=== PATIENT | female | born 1990 | race Caucasian/White ===

== ENCOUNTER → 2017-08-20 16:51 | Outpatient (CLI) | payer MEDICAID, SELFPAY ==
--- NOTE | 2017-08-20 17:01 | RAD_ITS ---
STUDY: X-RAY CHEST REASON FOR EXAM: Female, 27 years old. Pleurisy TECHNIQUE: Frontal and lateral views COMPARISON: April 26, 2013 FINDINGS: A 1 cm nodule in the left lower lung field likely a nipple shadow. The lungs are clear and expanded. There is no demonstrated pleural abnormality. Normal size heart. Normal mediastinum and moon. Normal visualized pulmonary arteries. Normal visualized aortic arch and descending thoracic aorta. Normal visualized thoracic spine. Normal visualized ribs, clavicles, and shoulders. There is no demonstrated abnormality of the visualized soft tissue structures of the upper abdomen. RAD/Chest PA and Lateral IMPRESSION: Normal x-ray examination of the chest. Electronically Signed: Mitchell Orosco DO at 23:05 EDT Tel [phone], Service support ,
== END ==
PROVIDERS: Family Provider Family Medicine; PCP Family Medicine; Visit Provider Family Medicine
DX: R09.1 Pleurisy (principal)
CPT/HCPCS: 71046

== ENCOUNTER → 2021-06-14 | Outpatient (CLI) | payer MEDICAID, SELFPAY ==
[2021-06-14 12:35] LABS: Erythrocyte Sedimentation Rate 14 mm/hr (0-30)
[2021-06-14 12:37] LABS: Absolute Lymphocyte Count 2.04 X10^3/uL (0.83-4.51); Basophil# 0.03 X10^3/uL; Basophil% 0.5 % (0-1); Eosinophil# 0.14 X10^3/uL; Eosinophils% 2.5 % (0-5); Hematocrit 36.7 % (37-47); Hemoglobin 12.4 g/dL (12.0-15.0); Lymphocyte # 2.04 X10^3/ul (0.83-4.51); Lymphocyte % 35.8 % (19-41); Mean Corp Hgb Conc 33.8 g/dL (32-36); Mean Corpuscular Hgb 32.1 pg (27.0-32.0); Mean Corpuscular Volume 95.1 fL (81-99); Mean Platelet Vol. 9.8 fl (6.2-12.0); Monocyte% 8.8 % (0-10); NRBC Flagged by Analyzer 0 % (0-5); Neutrophil # 2.97 X10^3/uL (2.7-7.7); Platelet Count 339 K/mm3 (150-450); RBC Distribution Width CV 11.7 % (11.6-14.6); Red Blood Count 3.86 M/mm3 (4.2-5.4); White Blood Count 5.7 K/mm3 (4.4-11.0)
== END | disposition home or self-care (01) ==
LOC: MFPLAB 09:51
PROVIDERS: PCP Family Medicine; Referring Provider Family Medicine; Visit Provider Family Medicine
DX: R22.1 Localized swelling, mass and lump, neck (principal)
CPT/HCPCS: 36415; 85025; 85652

== ENCOUNTER → 2022-09-15 | Outpatient (CLI) | payer MEDICAID, SELFPAY ==
[2022-09-15 12:40] LABS: Absolute Lymphocyte Count 1.31 X10^3/uL (0.83-4.51); Absolute Neutrophil Count 4.2 X10^3/uL (2.0-7.7); Basophil# 0.04 X10^3/uL; Basophil% 0.7 % (0-1); Eosinophil# 0.14 X10^3/uL; Eosinophils% 2.3 % (0-5); Hematocrit 39.7 % (37-47); Hemoglobin 13.1 g/dL (12.0-15.0); Lymphocyte # 1.31 X10^3/ul (0.83-4.51); Lymphocyte % 21.3 % (19-41); Mean Corpuscular Hgb 32.5 pg (27.0-32.0); Mean Corpuscular Volume 98.5 fL (81-99); Monocyte# 0.42 X10^3/uL; Monocyte% 6.8 % (0-10); NRBC Flagged by Analyzer 0 % (0-5); Neutrophil # 4.22 X10^3/uL (2.7-7.7); Neutrophil % 68.7 % (47-70); Platelet Count 260 K/mm3 (150-450); RBC Distribution Width CV 12.3 % (11.6-14.6); RBC Distribution Width SD 44.6 fl (35.1-43.9); Red Blood Count 4.03 M/mm3 (4.2-5.4); White Blood Count 6.1 K/mm3 (4.4-11.0)
[2022-09-15 13:15] LABS: ALB/GLOB Ratio 1.1 RATIO (0.9-2.4); AST(SGOT) 18 U/L (15-37); Alanine Aminotransfer ALT/SGPT 19 U/L (13-56); Albumin, Serum 3.9 g/dL (3.2-5.0); Alkaline Phosphatase 50 U/L (45-117); Anion Gap 4 (5-15); BUN 10 mg/dL (7-18); BUN/Creat Ratio 12.2 RATIO (10-20); Calcium,Total 8.7 mg/dL (8.5-10.1); Chloride 107 mmol/L (98-107); Creatinine, Serum 0.82 mg/dL (0.55-1.02); EST Glomerular Filtration Rate 85 mL/min (>60); Est Glom Filt Rate - Afr Amer 103 mL/min (>60); Globulin 3.6 g/dL (2.2-4.2); Glucose 86 mg/dL (74-106); Potassium 4.1 mmol/L (3.5-5.1); Protein, Total 7.5 g/dL (6.4-8.2); Sodium Level 140 mmol/L (136-145); Thyroid Stim Hormone (TSH) 0.97 uIU/mL (0.358-3.74)
== END | disposition home or self-care (01) ==
LOC: MFPLAB 09:49
PROVIDERS: PCP Family Medicine; Referring Provider Family Medicine; Visit Provider Family Medicine
DX: F32.A Depression, unspecified (principal)
CPT/HCPCS: 36415; 80053; 84443; 85025

== ENCOUNTER → 2022-11-21 | Outpatient (CLI) | payer MEDICAID, SELFPAY ==
[2022-11-21 10:53] LABS: Absolute Lymphocyte Count 1.32 X10^3/uL (0.83-4.51); Absolute Neutrophil Count 6.3 X10^3/uL (2.0-7.7); Basophil# 0.03 X10^3/uL; Basophil% 0.4 % (0-1); Eosinophil# 0.06 X10^3/uL; Eosinophils% 0.7 % (0-5); Hematocrit 36.8 % (37-47); Hemoglobin 12.3 g/dL (12.0-15.0); Lymphocyte # 1.32 X10^3/ul (0.83-4.51); Mean Corp Hgb Conc 33.4 g/dL (32-36); Mean Corpuscular Hgb 32.5 pg (27.0-32.0); Mean Corpuscular Volume 97.1 fL (81-99); Mean Platelet Vol. 10.3 fl (6.2-12.0); Monocyte# 0.55 X10^3/uL; Monocyte% 6.7 % (0-10); NRBC Flagged by Analyzer 0 % (0-5); Neutrophil # 6.25 X10^3/uL (2.7-7.7); Neutrophil % 75.8 % (47-70); Platelet Count 254 K/mm3 (150-450); RBC Distribution Width SD 42.6 fl (35.1-43.9); Red Blood Count 3.79 M/mm3 (4.2-5.4); White Blood Count 8.2 K/mm3 (4.4-11.0)
[2022-11-21 11:49] LABS: HIV - WCH Non-Reactive (Nonreactive); Hepatitis B Surface Antigen Non-Reactive (Nonreactive); Hepatitis C Antibody Non-Reactive (Nonreactive); Rubella IgG Equiv (Nonreactive); Syphilis Antibodies Non-reactive
[2022-11-22 06:08] LABS: V-Zoster IgG (Immunity) 949 index (Immune >165)
[2022-11-24 15:08] LABS: HPV APTIMA, High Risk Negative (Negative)
== END | disposition home or self-care (01) ==
LOC: WOBLAB 10:20
PROVIDERS: PCP Family Medicine; Visit Provider Obstetrics & Gynecology
DX: Z34.81 Encounter for supervision of other normal pregnancy, first trimester (principal)
CPT/HCPCS: 36415; 85025; 86703; 86762; 86780; 86787; 86803; 87086; 87340; 87624; 88175; G0145

== ENCOUNTER 2023-06-15 05:03 | Inpatient (IN) | payer MEDICAID, SELFPAY ==
--- NOTE | 2023-05-24 10:56 | PCM.HP.BLA ---
History and Physical Date of Admission: 06/15/23 HPI: The patient is a 32 year old female presenting for pre-operative visit. She is scheduled for and tubal steriilization for repeat c/s and sterilization on June 15 2023. Procedure discussed along with risks, benefits and complications. Other alternatives discussed for management. Consent form signed? Yes. ? ? PAST MEDICAL HISTORY PAST MEDICAL HISTORY Diagnosis Date ? Depression/anxiety ? ? Herpes simplex virus (HSV) infection ? ? Insulin controlled gestational diabetes mellitus (GDM) in third trimester 04/11/2023 ? ? PAST SURGICAL HISTORY PAST SURGICAL HISTORY Procedure Laterality Date ? SECTION HX ? 2017 ? LAPAROSCOPIC APPENDECTOMY ? 04/16/2015 ? NEXPLANON INSERTION ? ? ? removed ? ? ? CURRENT MEDICATIONS Current Outpatient Medications Medication Sig Dispense Refill ? blood sugar diagnostic test strip 1 Strip four times daily. Use as instructed 120 Strip 9 ? Lancets lancets 1 Each four times daily. Use as instructed 120 Each 9 ? famotidine (PEPCID) 20 mg tablet Take 1 tablet by mouth two times a day. 60 tablet 4 ? VIT [id number] ORAL Take by mouth. ? ? ? No current facility-administered medications for this visit. ? ? ALLERGIES: Patient has no known allergies. ? PERSONAL HISTORY: SOCIAL HISTORY Social History ? Tobacco Use ? Smoking status: Former ? ? Years: 5 ? ? Types: Cigarettes ? ? Quit date: 2015 ? ? Years since quittin.1 ? Smokeless tobacco: Never Vaping Use ? Vaping Use: Never used Substance Use Topics ? Alcohol use: Not Currently ? Drug use: Not Currently ? ? Types: Marijuana ? ? Comment: no use since October 2022 ? FAMILY HISTORY: FAMILY HISTORY FAMILY HISTORY Problem Relation Age of Onset ? other (gestational diabetes) Mother ? ? Thyroid Mother ? ? No Known Problems Father ? ? No Known Problems Sister ? ? No Known Problems Brother ? ? No Known Problems Brother ? ? Breast Cancer Maternal Grandmother ? ? Brain Cancer Maternal Grandmother ? ? Accidental Maternal Grandfather ? ? Heart Attack Paternal Grandmother ? ? Heart Attack Paternal Grandfather ? ? No Known Problems Son ? ? No Known Problems Daughter ? ? ? REVIEW OF SYMPTOMS: GENERAL: denies fevers or chills ENDOCRINOLOGY: has not been on steroids Cardiology : denies palpitations or chest pain Respiratory: denies SOB or cough Hematology: denies history of prolonged bleeding or easy bruising or VTE Allergy: Denies history of personal or family history of allergy to anesthesia ? PHYSICAL EXAMINATION: ? VITALS: Blood pressure 132/72, weight 168 lb (76.2 kg), last menstrual period 09/08/2022. ? GENERAL: The patient is well nourished, well hydrated in no acute distress. , The patient is oriented to time, place, and person. NECK: Supple. No lynphadenopathy, normal thyroid, no thyromegaly. LUNGS: Clear to auscultation bilaterally. no wheezes, rhonchi or rales HEART: Regular rate and rhythm, Normal heart sounds, and No murmurs or gallops abd- soft, nontender, gravid, appopriate for gestational age ? IMPRESSION: Estimated Date of Delivery: 06/19/23 ? PLAN: The risks/benefits/alternatives and personal involved for the planned delivery and tubal sterilization were reviewed with the patient. Her questions were answered to her satisfaction and she desires to proceed. Consent was signed. I reviewed with her postop instructions and expectations. ? ? I have reviewed and updated past medical and surgical history, medications and allergies Assessment & Plan Assessment/Plan (1) 39 weeks gestation of : (2) Supervision of other high risk pregnancies, third trimester: (3) Previous delivery affecting , antepartum: (4) Sterilization:
[2023-06-15] VITALS (21 sets, daily range): BP systolic 122–143; BP diastolic 78–97; PULSE 58–109; RESP 9–18; TEMP 36.1–36.8; O2SAT 97–100; BMI 27.5
--- NOTE | 2023-06-15 | FALS_PTH ---
PATHOLOGY RESULTS PATIENT: LUIS MCDANIEL LOC: [facility] U#:[id number] AGE/SX: 32/F ROOM: WP004 RE06/15/[address]: Dr. Sarah Briseno MD : 1990 BED: 1 DIS: 06/18/2023 SPEC #: [id number] RECD: 06/15/23 10:03 STATUS: REINALDO REThom #: [id number] BOZENA: 06/15/23 00:[address]: Sarah Briseno DEPT: SURGICAL PATHOLOGY RECD BY: Teddy Edwards ENTERED: 06/15/23 10:03 SP TYPE: FALL TUBES OTHR DR: Dr. Halina Troncoso MD Tissues: Fallopian tube Procedures: Surgery Specimen Level II HEADER OPERATION: Tubal ligation PRE-OP DIAGNOSIS: Sterilization TISSUE SUBMITTED: Fallopian tubes MICROSCOPIC DIAGNOSIS Bilateral fallopian tubes, salpingectomy: Bilateral fallopian tubes, no pathologic diagnosis. BARAK:juan 06/18/2023 MICROSCOPIC DESCRIPTION Slides are reviewed. GROSS DESCRIPTION Received in fixative is one container labeled with the patient's name and designated bilateral fallopian tubes, suture in right tube. The specimen consists of two fallopian tubes. The right fallopian tube measures 7.0 cm in length and 1.0 cm in diameter and the left fallopian tube measures 4.8 cm in length and 1.3 cm in diameter. Both fallopian tubes have normal fimbriated ends. No mass lesions are identified. Batch Mixer Operator sections are submitted in two cassettes as follows: 1 - right fallopian tube, 2??left fallopian tube. / AM:juan 06/15/2023 TC:4 CPT: 54708 x2
[2023-06-15 05:32] LABS: Absolute Lymphocyte Count 1.79 X10^3/uL (0.83-4.51); Absolute Neutrophil Count 7.4 X10^3/uL (2.0-7.7); Basophil# 0.03 X10^3/uL; Basophil% 0.3 % (0-1); Hematocrit 34.6 % (37-47); Hemoglobin 11.6 g/dL (12.0-15.0); Lymphocyte # 1.79 X10^3/ul (0.83-4.51); Mean Corp Hgb Conc 33.5 g/dL (32-36); Mean Corpuscular Volume 95.3 fL (81-99); Monocyte# 0.57 X10^3/uL; Monocyte% 5.7 % (0-10); NRBC Flagged by Analyzer 0 % (0-5); Neutrophil # 7.39 X10^3/uL (2.7-7.7); Neutrophil % 74.4 % (47-70); Platelet Count 228 K/mm3 (150-450); RBC Distribution Width CV 12.5 % (11.6-14.6); Red Blood Count 3.63 M/mm3 (4.2-5.4); White Blood Count 9.9 K/mm3 (4.4-11.0)
[2023-06-15] MEDS: Acetaminophen 500 MG Tablet 1000 MG PO ×3 (05:43→18:15)
[2023-06-15] MEDS: Lactated Ringers 1,000 ML 999 ML IV (05:44)
[2023-06-15 05:53] LABS: Bedside Glucose 149 mg/dL (74-106)
[2023-06-15] MEDS: Lactated Ringers 1,000 ML 150 ML IV (06:40)
[2023-06-15] MEDS: Sodium Citrate/Citric Acid 30 ML UDC PO (07:08)
[2023-06-15] MEDS: Cefazolin 2 GM in 0.9% Normal Saline (100mL Bag) 100 ML IV (07:20)
[2023-06-15 07:38] LABS: Amphetamine Urine VISTA NEGATIVE (<1000 ng/mL); Barbiturate Urine VISTA NEGATIVE (< 200 ng/mL); Benzodiazepine Urine VISTA NEGATIVE (< 200 ng/mL); Cocaine Urine VISTA NEGATIVE (< 300 ng/mL); Ecstacy Urine VISTA NEGATIVE (< 500 ng/mL); Methadone Urine VISTA NEGATIVE (< 300 ng/mL); PCP Urine VISTA NEGATIVE (< 25 ng/mL); THC Urine VISTA NEGATIVE (< 50 ng/mL); Vista UDS pH Range 6
--- NOTE | 2023-06-15 08:05 | EX.PCM.OBRPT ---
Assessment & Plan (1) Sterilization: (2) Previous delivery affecting , antepartum: (3) Supervision of other high risk pregnancies, third trimester: (4) 39 weeks gestation of : Maternal Data Information Final DEANNE: 06/19/23 Gestational age: 39 3/7 Details Operative Information Date of Procedure: 06/15/23 Pre-Operative Diagnosis: sterilization request, previous c/s Post-Operative Diagnosis: same Indications for : Repeat Elective Classification: Scheduled Procedure Type: bilateral salpingectomy (with bilateral salpingectomy) general sales manager #1: Seb Reyes Type of Anesthesia: Spinal Anesthesiologist: Aneudy Holliday Special Medications: duramorph Antibiotic Given: Ancef 2 grams IV x1 Drain: Gloria to straight drain Estimated Blood Loss: 800 Fluids Replaced: 800 Procedure Start Time: 07:44 Procedure Stop Time: 08:14 Time of Delivery: 07:47 Findings Description of Procedure: The patient was taken to the operating room. She was prepped and draped in the dorsal supine position with a leftward tilt. A Pfannenstiel skin incision was made approximately 2 cm above the symphysis pubis and carried through to underlying layer fascia with the scalpel. The fascia was incised incised in the midline and extended laterally with the Johnson scissors. The fascia was dissected off the rectus muscles with blunt and sharp dissection. The rectus muscles were in the midline and the peritoneum was entered bluntly. The peritoneal incision was stretched and the bladder blade was placed. The uterine incision was made in a low transverse fashion with the scalpel and extended superiorly and inferiorly with blunt dissection. The amniotic membranes were ruptured bluntly and clear amniotic fluid returned. The 's head was brought to the incision in the flexed position and delivered without difficulty. The remainder of the infant was delivered with gentle traction and fundal pressure in the standard fashion. The mouth and nares were bulb suctioned. The cord was clamped and cut as the infant was stimulated. Cord clamping was delayed. The was handed off to the waiting nursing staff. The placenta was delivered with fundal massage and gentle traction in the standard fashion. The uterus was exteriorized and cleared of all clots and debris. The cervix was dilated with a ring forcep. The uterine incision was closed with #1 Vicryl in a running locked fashion. 2 [id number] 0 Vicryl sutures were needed to the left of the midline to control bleeding from the sinus. The incision was examined and was found to be hemostatic. The left tube was followed out to the fimbriated end and grasped with Fontana clamps. The LigaSure device was used to clamp, seal and transect the antimesenteric portion of the tube over to the cornual insertion of the tube. The tube was then amputated with the LigaSure device. Excellent hemostasis of all the pedicles was noted and the same procedure was performed on the contralateral side. The uterus was placed back into the peritoneal cavity and hemostasis was again confirmed. The rectus muscles were examined and any bleeding was Bovie cauterized. The parietal peritoneum and rectus muscles were closed en bloc with an 0 Vicryl running suture. The rectus fascia was examined and any bleeding was Bovie cauterized and the rectus fascia was closed with 1 Vicryl suture in a running standard fashion. The subcutaneous tissue was examining and any bleeding was Bovie cauterized. The subcutaneous tissue was reapproximated with 3-0 Vicryl suture. The skin was closed in a subcuticular fashion by the CLINICAL TRIALS SYSTEMS ADMINISTRATOR with me present in the labor and delivery suite. I performed the remainder of the procedure with assistance. All sponge, lap, and needle counts were correct. The patient was taken to her room for recovery in a stable condition. Presentation: Positive for Vertex Amniotic Membrane Rupture Type: Artificial Amniotic Fluid Description: Clear Placental Delivery Description: Expressed Placenta Disposition: [facility] Specimen(s) Sent to Pathology: bilateral fallopian tubes Cord Vessel Description: 3 Vessels Cord Entanglement: None Infant A Gender: Male ([place]) (1 minute): 8 (5 minute): 9 Delayed Cord Clamping: Yes Complications Complications: none
[2023-06-15] MEDS: Oxytocin 15 Units/NS 250ml 15 UNITS/250 ML IV.SOLN 83 UNITS IV (08:45)
[2023-06-15 09:16] LABS: Pathology Specimen OB SEE PATHOLOGY REPORT
[2023-06-15] MEDS: Ketorolac 30 MG/ML Syringe IV ×3 (09:18→21:33)
[2023-06-15 09:29] LABS: Syphilis Antibodies Non-reactive
[2023-06-15 09:31] LABS: Bedside Glucose 84 mg/dL (74-106)
[2023-06-15] MEDS: Lactated Ringers 1,000 ML 100 ML IV (11:46)
[2023-06-15] MEDS: 0.9% Saline Lock 10 ML Syringe IV ×2 (16:06→21:33)
[2023-06-15] MEDS: SimETHICONE 80 MG Chewable Tablet PO (17:15)
[2023-06-16 00:27] VITALS: BP 125/83; PULSE 62; RESP 16; TEMP 36.7; O2SAT 99
[2023-06-16] MEDS: Acetaminophen 500 MG Tablet 1000 MG PO ×4 (00:30→18:41)
[2023-06-16 03:52] VITALS: BP 130/84; PULSE 80; RESP 16; TEMP 36.7; O2SAT 99
[2023-06-16] MEDS: Ketorolac 30 MG/ML Syringe IV (04:00)
[2023-06-16] MEDS: SimETHICONE 80 MG Chewable Tablet PO ×4 (04:00→20:10)
[2023-06-16] MEDS: 0.9% Saline Lock 10 ML Syringe IV (04:01)
[2023-06-16 05:13] LABS: Hematocrit 29.5 % (37-47); Hemoglobin 9.7 g/dL (12.0-15.0); Mean Corp Hgb Conc 32.9 g/dL (32-36); Mean Corpuscular Hgb 32.1 pg (27.0-32.0); Mean Corpuscular Volume 97.7 fL (81-99); Mean Platelet Vol. 10.8 fl (6.2-12.0); Platelet Count 172 K/mm3 (150-450); RBC Distribution Width SD 44.9 fl (35.1-43.9); Red Blood Count 3.02 M/mm3 (4.2-5.4); White Blood Count 11.4 K/mm3 (4.4-11.0)
[2023-06-16 05:24] LABS: Bedside Glucose 84 mg/dL (74-106)
[2023-06-16] MEDS: oxyCODONE 5 MG Tablet PO ×3 (08:11→20:10)
[2023-06-16 08:14] VITALS: BP 128/88; PULSE 74; RESP 14; TEMP 36.8; O2SAT 100
--- NOTE | 2023-06-16 08:46 | PCM.PN.OB ---
Subjective Subjective Doing well. Bladder function improving. Light lochia. Pain controlled. Breast feeding well. Objective Data Objective Data Vital Signs: Vital Signs Temp Pulse Resp BP Pulse Ox O2 Del Method 98.2 F 74 14 128/88 H 100 Room Air 06/16/23 08:14 06/16/23 08:14 06/16/23 08:14 06/16/23 08:14 06/16/23 08:14 06/16/23 08:14 Oxygen Delivery Method Room Air Weight: 77.383 kg Body Mass Index (BMI) 27.5 Intake & Output: Intake and Output for Last 24 Hours 06/14/23 06/15/23 06/16/23 23:59 23:59 23:59 Intake Total 1959.17 / 1959.17 Output Total 3150 / 3150 750 / 750 Balance -1190.83 / -1190.83 -750 / -750 Lab / Micro Data Attestation: I reviewed the patient's lab results. 06/16/23 05:05 Labs: Laboratory Results - last 24 hr 06/15/23 05:20: Syphilis Total Ab Non-reactive, Blood Type O POSITIVE, Antibody Screen NEGATIVE 06/15/23 08:54: POC Glucose 84 06/16/23 05:02: POC Glucose 84 06/16/23 05:05: WBC 11.4 H, RBC 3.02 L, Hgb 9.7 L, Hct 29.5 L, MCV 97.7, MCH 32.1 H, MCHC 32.9, RDW Std Deviation 44.9 H, RDW Coeff of Dusty 13.0, Plt Count 172, MPV 10.8 Physical Exam Const alert General Appearance: cooperative GI GI Narrative: soft, moderate distention, fundus firm, appropriately tender. Abdominal bandage clean dry and intact Assessment & Plan (1) Previous delivery affecting , antepartum: (2) Sterilization:
--- NOTE | 2023-06-16 09:08 | CASEMGMT ---
Social Work Labor and Delivery Unit Date/Time of Referral: 06/16/23, 9:15am Date/Time of Intervention: 06/16/23, 8:45am Reason for referral: History of anxiety and depression History obtained from: CARMELITA HATCH, medical record Parent/Guardian status: MOB guardian of this baby Household composition: ACRMELITA HATCH, 9 year old, 6 year old and now baby Harman. CARMELITA is biological father to the 6 year old and Harman, and is only father 9 year old knows, since she was one. Her biological father is not involved at all. Medical history: MAMIE--history of depression and anxiety, history of . Baby: Born 06/15/23, 7:50am Apgars 8 and 9 at 1 and 5 minutes. weight is 3.355kg Educational Status: Both MAMIE and CARMELITA completed high school, MAMIE also did some vocational school. Financial Status: No concerns. 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 MAMIE plans to return to work eventually, would like to ge a more steady job locally Infant supplies: They have all needed supplies including diapers, wipes, clothing, car seat, crib. MAMIE is breast feeding. Childcare/Caregivers: MOB and CARMELITA's mothers help. The older children are with MAMIE's mother at present, and CARMELITA's mother is watching the pets. Transportation: They have 2 vehicles Programs/Agencies involved: None Children's Services/Legal Issues: None Behavioral Health issues: Substance use: FOYonas, none. MAMIE, states did use marijuana in October, once she knew was did not use again. She plans to not use again. MAMIE denies any other substance use. Tox screen negative on MOB, no screens done on baby. Mental Health: FOYonas, none. MOB, history of anxiety and depression. She states was diagnosed as a teen, and just prior to her spoke w/Dr. Troncoso about it. Dr. Troncoso prescribed Zoloft, however shortly after it was prescribed MAMIE learned was . She stopped taking the Zoloft at that time. She states has been managing well while . ELENA spoke w/MAMIE about depression and anxiety, she states she may have had some PPD after her pregnancies that lasted a month or two. She states she did not go on medication or do counseling, and it eventually got better. MOB states she has never been in counseling. FOB did walk out of the room while SW speaking w/them, SW checked in w/MOB, she does confirm he is supportive, no concerns for homegoing. Family/Social Stressors: FOB states the economy, otherwise, no other concerns identified Support systems: Both MOB and FOB's mothers, FOB's family--states he has 5 brothers, he is the oldest. MOB states has one sister depression/anxiety/shaken baby/safe sleeping/Help Me Grow/[facility]/Mental Health resources and hotlines: SW gave information on all of these topics and reviewed w/MOB and FOB. SW pointed out to MOB information in particular on PPD and anxiety. SW suggested to MOB if she is having difficulty to reach back out to Dr. Troncoso regarding medication--or reach out to her OB as her OB would be able to prescribe medication that is safe to use while breast feeding. SW also encouraged her to seek out counseling if she is having any PPD or anxiety. MOB states understanding and seems open to SW suggestions. Assessment: SW spoke w/MOB and FOB in room. MOB open w/SW, answered all questions. MOB holding baby and appropriate in her care toward baby. FOB initially not fully participating in conversation, on phone. However as SW was in longer he became more engaged and spoke w/SW, answered questions. Plan: Baby to go home w/MOB and FOB at discharge, no further social service needs indicated at this time. LORRIE Collazo
[2023-06-16] MEDS: Ibuprofen 600 MG Tablet PO ×3 (10:59→21:27)
[2023-06-16] MEDS: Senna/Docusate Sodium 1 Tablet PO (11:10)
[2023-06-16 12:34] VITALS: BP 135/91; PULSE 77; RESP 16; TEMP 36.8; O2SAT 98
[2023-06-16 15:20] VITALS: BP 153/95; PULSE 80; RESP 14; TEMP 36.8; O2SAT 99
[2023-06-16 20:15] VITALS: BP 132/81; PULSE 78; RESP 16; TEMP 36.6; O2SAT 99
[2023-06-17] MEDS: oxyCODONE 5 MG Tablet PO ×5 (00:25→20:31)
[2023-06-17] MEDS: Acetaminophen 500 MG Tablet 1000 MG PO ×4 (00:30→19:15)
[2023-06-17 04:10] VITALS: BP 134/82; PULSE 66; RESP 16; TEMP 36.6; O2SAT 100
[2023-06-17] MEDS: Ibuprofen 600 MG Tablet PO ×4 (04:24→23:05)
[2023-06-17 08:26] VITALS: BP 125/75; RESP 78; TEMP 37.1; O2SAT 98
--- NOTE | 2023-06-17 09:47 | PCM.PN.OB ---
Subjective Subjective Feeling better. BP back to normal range. Moderate lochia, Pain improving. Baby under bili lights yesterday. Monitoring platelets today. Breast feeding. Objective Data Objective Data Vital Signs: Vital Signs Temp Pulse Resp BP Pulse Ox O2 Del Method 98.7 F 66 78 H 125/75 H 98 Room Air 06/17/23 08:26 06/17/23 04:10 06/17/23 08:26 06/17/23 08:26 06/17/23 08:26 06/17/23 08:26 Oxygen Delivery Method Room Air Weight: 77.383 kg Body Mass Index (BMI) 27.5 Intake & Output: Intake and Output for Last 24 Hours 06/15/23 06/16/23 06/17/23 23:59 23:59 23:59 Intake Total 1959.17 / 1959.17 Output Total 3150 / 3150 750 / 750 Balance -1190.83 / -1190.83 -750 / -750 Lab / Micro Data Attestation: I reviewed the patient's lab results. 06/16/23 05:05 Physical Exam Const alert General Appearance: cooperative GI GI Narrative: soft, moderate distention, fundus firm, appropriately tender. Abdominal bandage clean dry and intact Assessment & Plan (1) Previous delivery affecting , antepartum: (2) 39 weeks gestation of : (3) Transient hypertension of , :
[2023-06-17] MEDS: Senna/Docusate Sodium 1 Tablet PO (12:04)
[2023-06-17 20:32] VITALS: BP 133/84; PULSE 67; RESP 16; TEMP 36.5
[2023-06-18 01:38] VITALS: BP 129/79; PULSE 67; RESP 16; TEMP 36.7
[2023-06-18] MEDS: Acetaminophen 500 MG Tablet 1000 MG PO ×3 (01:38→13:38)
[2023-06-18] MEDS: oxyCODONE 5 MG Tablet PO ×3 (03:20→11:41)
[2023-06-18] MEDS: Ibuprofen 600 MG Tablet PO ×2 (05:18→10:34)
--- NOTE | 2023-06-18 07:15 | PCM.PN.OB ---
Subjective Subjective Doing well. Breast feeding is going well. Pain manageable but still feels she need oxy here and there. Objective Data Objective Data Vital Signs: Vital Signs Temp Pulse Resp BP Pulse Ox O2 Del Method 98.0 F 67 16 129/79 H 98 Room Air 06/18/23 01:38 06/18/23 01:38 06/18/23 01:38 06/18/23 01:38 06/17/23 08:26 06/18/23 01:38 Oxygen Delivery Method Room Air Weight: 77.383 kg Body Mass Index (BMI) 27.5 Intake & Output: Intake and Output for Last 24 Hours 06/16/23 06/17/23 06/18/23 23:59 23:59 23:59 Output Total 750 / 750 Balance -750 / -750 Lab / Micro Data 06/16/23 05:05 ROS Constitutional Constitutional: Denies fatigue, fever(s) or malaise Eyes Eyes: Denies change in vision ENT HEENT: Denies dizziness or headache(s) Cardiovascular Cardiovascular: Denies chest pain, dyspnea or lightheadedness Respiratory/Chest Respiratory/Chest: Denies cough or dyspnea Gastrointestinal Gastrointestinal: Denies change in bowel habits Genitourinary Genitourinary: Denies burning urination or genital lesions Integumentary Integumentary: Denies rash Neurologic Neurologic: Denies confusion, dizziness, headache(s), numbness or weakness Physical Exam Const alert General Appearance: cooperative GI GI Narrative: soft, moderate distention, fundus firm, appropriately tender. Abdominal bandage clean dry and intact Assessment & Plan (1) Status post : PLAN: d/c home (2) Transient hypertension of , :
--- NOTE | 2023-06-18 07:25 | DS.PCM_ITS ---
Providers Date of Admission: 06/15/23 Date of Discharge: 06/18/23 Primary Care Physician: Dr. Halina Troncoso MD Reason For Visit: REPEAT Diagnosis Discharge Diagnosis (1) Status post : Status: Acute Code(s): Z98.891 - History of uterine scar from previous surgery Plan: d/c home (2) Transient hypertension of , : Status: Acute Code(s): O13.5 - Gestational [-induced] hypertension without significant proteinuria, complicating the puerperium Medications at Discharge Home Medications ibuprofen 600 mg tablet 600 mg PO Q6H #30 tabs 06/18/23 oxycodone 5 mg tablet 5 mg PO Q6H 1 week #7 tabs 06/18/23 Hospital Course Operations section Procedures None Summary of Care Provided Minutes Spent on Discharge: 22 Hospital Course: Scheduled repeat . Uncomplicated delivery. Transient HTN first day post . Resolved with better pain management. with elevated bili requiring light therapy. platelet clumping necessitating further observation. OK for discharge Physical Exam Const alert General Appearance: cooperative GI GI Narrative: soft, moderate distention, fundus firm, appropriately tender. Abdominal bandage clean dry and intact Weight / BMI Weight Weight: 77.383 kg Body Mass Index (BMI) 27.5 ABG / Lab / Microbiology Data 06/16/23 05:05 D/C Instructions Discharge Diet: No restrictions May resume sexual activity in: 4-6 weeks Lifting Restrictions: 20 pounds Additional Activity Instructions: Nothing in the vagina for 4-6 weeks. You may return to work/school in 6 weeks. Call your doctor if your incision/area has: Continuous Slow Oozing, Sudden Increased Bleeding, Increased Pain/ Swelling, Increased Redness and Foul Smelling Discharge Call your doctor if you observe: Fever of 101 or Higher and Using more than 1 pad per hour (for 2 hours) Suture Line Care: Avoid Pulling/Pushing and Avoid Pinching/Bending Cleanse incision/area with: Keep Dressing Clean & Dry Please Follow Up With: Sarah Briseno MD When: Call to make an appointment for an incision check in 1-2 weeks -[phone]. You will need a post check in 6 weeks. Meaningful Use Info Meaningful Use Diagnoses (Choose all that apply): None applicable Discharge Plan Admission Admit Date/Time: 06/15/23 05:03 Primary Reason for Your Visit: scheduled Attending Provider: Sarah Briseno Primary Care Provider: Halina Troncoso Instructions Patient Instructions: Section Dc Discharge Orders/Prescriptions Prescriptions: New ibuprofen 600 mg Tablet 600 mg PO Q6H Qty: 30 1RF oxycodone 5 mg Tablet 5 mg PO Q6H 7 Days Qty: 7 0RF Discontinued valacyclovir [Valtrex] 1,000 MG tablet 1,000 mg PO BID Patient Comments: perineal lesions Referrals / Follow Up: Halina Troncoso MD [Primary Care Provider] - Karlie Baez MD [Med Staff - Active Staff] - Disposition Disposition (needs filled in before D/C Order can be placed): Home, Self Care
[2023-06-18 07:30] VITALS: BP 137/87; PULSE 73; RESP 16; TEMP 36.7; O2SAT 99
[2023-06-18] MEDS: Senna/Docusate Sodium 1 Tablet PO (10:34)
[2023-06-18 13:45] VITALS: BP 138/75; PULSE 65; RESP 16; TEMP 36.8; O2SAT 99
--- NOTE | 2023-06-28 09:17 | CASEMGMT ---
Labor and Delivery Wiring Inspector Meconium results returned for babyHarman (: 06/15/23) and results were positive for THC. Sw called [facility] and made report due to AIDEN Act. Ronald spoke to hotline screener, Cherie. No other issues or concerns at this time. Elis De La O, RISK MANAGEMENT INTERNSHIP, SALES PROMOTION DIRECTOR
== END 2023-06-18 14:15 | disposition home or self-care (01) | DRG 539 ==
PROVIDERS: Admitting Provider Obstetrics & Gynecology; PCP Family Medicine; Visit Provider Obstetrics & Gynecology
PROC: 10D00Z1 Extraction of Products of Conception, Low, Open Approach (ICD-10-PCS; CPT 59514; principal; 2023-06-15 07:00)
DX: O34.219 Maternal care for unspecified type scar from previous cesarean delivery (principal); O13.5 Gestational [pregnancy-induced] hypertension without significant proteinuria, complicating the puerperium; Z37.0 Single live birth; Z3A.39 39 weeks gestation of pregnancy; Z30.2 Encounter for sterilization; Z87.891 Personal history of nicotine dependence
CPT/HCPCS: 59025; 59050; 80307; 82962; 85025; 85027; 86780; 86850; 86900; 86901; 88302; 99221; J7120; A4216; G0378; J2405

== ENCOUNTER 2024-09-28 06:18 | Emergency (ER) | payer OTHER, MEDICAID, SELFPAY ==
[2024-09-28 06:20] VITALS: BP 148/75; PULSE 81; RESP 18; TEMP 36.8; O2SAT 100; BMI 26.9
--- NOTE | 2024-09-28 06:25 | EDS_ITS ---
HPI History of Present Illness Chief Complaint: Laceration Informant: patient Narrative Narrative: Healthy 34-year-old female was at work, she went to pick something up and accidentally stood up into a wall-mounted hook, and accidentally sustained a laceration on top of her head. She does not have any significant pain, loss of consciousness, headache, nausea vomiting, or focal neurologic deficits. Last tetanus unknown. PFSH PFS Medical History no medical history Home Medications ?Medication ?Instructions ?Recorded ?Last Taken ?Type NK 09/28/24 Unknown History Allergy/AdvReac Type Severity Reaction Status Date / Time No Known Allergies Allergy Verified 05/11/24 09:35 Surgical History History of section History of appendectomy Social History Smoking Status: Current every day smoker tobacco type: e-cigarettes ROS ROS ED Constitutional Constitutional ED: Denies fever(s) Eyes Eyes: Denies change in vision Gastrointestinal Gastrointestinal: Denies nausea or vomiting Musculoskeletal Musculoskeletal: Denies back pain or neck pain Integumentary Reports laceration Neurologic Neurologic: Denies headache(s), paresthesias or weakness EXAM Physical Exam Const Vital Signs: 09/28/24 06:20 Temperature 98.2 F Temperature Source Oral Pulse Rate 81 Respiratory Rate 18 Blood Pressure 148/75 H Blood Pressure Mean 99 Pulse Ox 100 Oxygen Delivery Method Room Air Positive well nourished and well developed General Appearance ED: well developed HEENT HEENT Narrative: 1.5 cm full-thickness laceration top of the scalp just to the right of midline. There is no crepitance, depression or significant hematoma or tenderness. No other injury to the head, full range of motion of the neck without difficulty or limitation. Eyes PERRL and EOMs intact bilaterally Neck full ROM General: Negative for tenderness Resp normal respiratory effort Neuro oriented x3, CN's II-XII intact bilaterally, moves all extremities, no focal motor deficits, no sensory deficits noted and gait normal [place] Coma Scale: document GCS findings Spontaneous Obeys Commands Oriented 15 Psych mental status grossly normal and thought process normal Skin Skin Narrative: No rashes. Laceration to the top of the head x 1, 1.5 cm see above. Clean appearing linear. PROC Procedures Lacerations scalp: Length: 1.5 cm Depth: Sub Q Shape: Linear Prep: Sterile Conditions and Chlorhexadine Laceration repair: Irrigated and Skin sutures (janene) Irrigated (ml): 60 Number of Sutures/[place]: 2 Discharge Plan Triage Chief Complaint: Laceration ED Provider: Anthony Montesinos Dx/Rx/DC Orders Clinical Impression: Laceration of scalp Instructions: ED Laceration Scalp Stitches or [place] Prescriptions: No Action NK Primary Care Provider: Halina Troncoso Referrals: [facility]] - 7 Days for suture removal Print Language: [place] Disposition Disposition: Home, Self Care
[2024-09-28] MEDS: Lidocaine 1% /Epi 1:100 (20ml) 20 ML Vial INFILT (06:26)
--- OUTSIDE RECORDS SUMMARY | 2024-09-28 06:46 | XMS RPT_ITS | CCD ---
Author Organization [facility] Inform ion Partnership [facility] Care Team Providers Care Furniture Salesperson Name Role Phone Hanna ARBOLEDA, Sanjay Garcia Unavailable [phone] CONGENI, GRACIA L Unavailable Unavailable CONGENI, GRACIA L Unavailable Unavailable JOLLIFF, HALINA Unavailable Unavailable PROVIDER, UNKNOWN Admitting Unavailable PROVIDER, UNKNOWN Attending Unavailable Unavailable Primary Care Provider UnavailPATIENCE Payne Attending Unavailable LALY CHEW Referring Unavailable LALY CHEW Referring Unavailable LALY CHEW Attending Unavailable JANNET CASTLE Referring Unavailable LALY CHEW Attending Unavailable LALY CHEW Attending Unavailable BETSY THOMAS Attending Unavailable BETSY THOMAS Referring Unavailable SIVA MORENO Attending Unavailable BETSY THOMAS Referring Unavailable PATIENCE VILLARREAL Attending Unavailable PATIENCE VILLARREAL Referring Unavailable CRYSTAL SARMIENTO Attending Unavailable SELF Referring Unavailable BETSY THOMAS Attending Unavailable JEEVAN, LALY Freddy Attending Unavailable SELF Referring Unavailable RACHEL FENG Attending Unavailable PATIENCE VILLARREAL Referring Unavailable PATIENCE VILLARREAL Attending Unavailable LALY CHEW Attending Unavailable JANNET CASTLE Attending Unavailable COLLETTE ALEXANDER Attending Unavailable Mike Preston Attending Unavailable Jolliff, Halina S Referring Unavailable Jolliff, Halina S Primary Care Unavailable Nash Menon NP Attending Unavailable Jolliff, Halina S Referring Unavailable Jolliff, Halina S Primary Care Unavailable Laly Chew Attending Unavailable Jeevan Laly Admitting Unavailable Jolliff, Halina S Primary Care Unavailable Allergies Allergy Classification Reported Allergen(s) Allergy Type Date of Onset Reaction(s) Facility (3 sources) Penicillins Propensity to adverse reactions 7 Upset Stomach [facility] Medications Current Medications Medication Drug Class(es) Dates Sig (Normalized) Sig (Original) hydrocortisone acetate 25 mg rectal suppository (3 sources) Corticosteroid Start: 06-01-2023 End: 06-15-2023 hydrocortisone (ANUSOL-HC) 25 mg suppository 1 Suppository by RECTAL route two times a day for 14 days. 28 Each 0 06/01/2023 06/15/2023 Active Comment on above: 1 Suppository by REC ANDERS route two times a day for 14 days. oxyCODONE hydrochloride 5 mg oral tablet (7 sources) Opioid Agonist Start: 07-24-2023 End: 07-29-2023 take 1 tablet by mouth every eight hours as needed for pain oxyCODONE IR (ROXICODONE) 5 mg immediate release tablet Indications: Acute postop pain NEC Take 1 tablet by mouth every 8 hours as needed for pain for up to 5 days. 10 tablet 0 07/24/2023 07/29/2023 Active Start: 06-25-2023 End: 06-30-2023 take 1 tablet by mouth every eight hours as needed for pain oxyCODONE IR (ROXICODONE) 5 mg immediate release tablet Indications: Postoperative pain Take 1 tablet by mouth every 8 hours as needed for pain for up to 5 days. 8 tablet 0 06/25/2023 06/30/2023 Active Start: 2023 take 5 mg by mouth e very six hours Oxycodone Active 5 MG PO EVERY 6 HOURS 7 7 2023 Start: 01-09-2017 End: 06-15-2023 take 5 mg by mouth every six hours as needed Oxycodone Discontinued 5 MG PO EVERY 6 HOURS NEEDED January 09, 2017 4:42pm June 15, 2023 5:51am Comment on above: Take 1 tablet by iva th every 8 hours as needed for pain for up to 5 days. Completed/Discontinued Medications Medication Drug Class(es) Dates Sig (Normalized) Sig (Original) acetaminophen 500 mg oral tablet (4 sources) Start: 01-09-2017 End: 06-15-2023 take 1000 mg by mouth every eight hours Acetaminophen Discontinued 1000 MG PO Q8H January 08, 2017 11:00pm June 15, 2023 5:51am acetaminophen 325 mg / oxyCODONE hydrochloride 5 mg oral tablet (1 source) Opioid Agonist Start: 12-01-2016 take 1 tablet by mouth every four to six hours as needed for pain OXYCODONE-ACETAMIN OPHEN 5-325 MG TABS 1 tab PO every 4-6 hours as needed for pain OXYCODONE-ACETAMIN OPHEN [id number] Sanjay Ferreira MD acyclovir 400 mg oral tablet (7 sources) Herpesvirus Nucleoside Analog DNA Polymerase Inhibitor, Herpes Simplex Virus Nucleoside Analog DNA Polymerase Inhibitor, Herpes Zoster Virus Nucleoside Analog DNA Polymerase Inhibitor Start: 05-30-2023 End: 07-24-2023 take 1 tablet by mouth twice daily acyclovir (ZOVIRAX) 400 mg tablet Take 1 tablet by mouth two times a day. 60 tablet 1 05/30/2023 07/24/2023 Discontinued Comment on above: Take 1 tablet by iva th two times a day. docusate sodium 50 mg / sennosides, custodial 8.6 mg oral tablet (4 sources) Start: 01-09-2017 End: 06-15-2023 take 1 tablet by mouth once daily as needed Sennosides-Docusat e Sodium (Stool Softener-Stimulant Laxat) 1 TABLET tablet Discontinued 1 TABLET PO DAILY NEEDED January 08, 2017 11:00pm June 15, 2023 5:51am famotidine 20 mg oral tablet (11 sources) Histamine-2 Receptor Antagonist Start: 03-27-2023 End: 07-24-2023 take 1 tablet by mouth twice daily famotidine (PEPCID) 20 mg tablet Take 1 tablet by mouth two times a day. 60 tablet 4 03/27/2023 07/24/2023 Discontinued Comment on above: Take 1 tablet by iva th two times a day. hydrocortisone acetate 5 mg/ml / lidocaine hydrochloride 30 mg/ml rectal cream (2 sources) Antiarrhythmic, Corticosteroid, Amide Local Anesthetic Start: 05-30-2023 End: 06-29-2023 Lidocaine-Hydrocor tisone Ac 3-0.5 % crea by RECTAL route two times a day as needed. 7 g 0 05/30/2023 06/01/2023 Discontinued Comment on above: by RECTAL route two times a day as needed. ibuprofen 600 mg oral tablet (5 sources) Nonsteroidal Anti-inflammatory Drug Start: 2023 ibuprofen (MOTRIN) 600 mg tablet Take 600 mg by mouth. 0 2023 Active Comment on above: Take 600 mg by mouth . lidocaine 0.05 mg/mg topical ointment (7 sources) Antiarrhythmic, Amide Local Anesthetic Start: 06-01-2023 End: 07-24-2023 lidocaine (XYLOCAINE) 5 % ointment Apply to affected area four times a day as needed. use a small amount to affected area qid prn pain 30 g 1 06/01/2023 07/24/2023 Discontinued Start: 06-01-2023 End: 06-01-2023 lidocaine (XYLOCAINE) 5 % oi ntment Apply to affected area three times a day. use a small amount to affected area qid prn pain 30 g 1 06/01/2023 06/01/2023 Discontinued Comment on above: Apply to affected ar ea four times a day as needed. use a small amount to affected area qid prn pain Apply to affected ar ea three times a day. use a small amount to affected area qid prn pain naproxen 250 mg oral tablet (4 sources) Nonsteroidal Anti-inflammatory Drug Start: 7 End: take 250-500 mg by mouth every eight hours as needed Naproxen Discontinued 250 - 500 MG PO EVERY 8 HOURS NEEDED January 08, 2017 11:00pm June 15, 2023 5:51am VIT 07-MANR-TAYZE-DHA ORAL (15 sources) VIT 81-PBMR-SCUAD-DHA ORAL Take by mouth. 0 Active Comment on above: Take by mouth. sertraline 25 mg oral tablet (5 sources) Serotonin Reuptake Inhibitor Start: 7 End: 4 take 1 tablet by mouth once daily Sertraline (Zoloft) 25 MG tablet Discontinued 25 MG PO DAILY January 08, 2017 11:00pm June 15, 2023 5:51am Start: 12-01-2016 ZOLOFT 25 MG T ABS once daily SERTRALINE HCL [id number] Sanjay Ferreira MD valACYclovir 1000 mg oral tablet (4 sources) Herpesvirus Nucleoside Analog DNA Polymerase Inhibitor, Herpes Simplex Virus Nucleoside Analog DNA Polymerase Inhibitor, Herpes Zoster Virus Nucleoside Analog DNA Polymerase Inhibitor Start: 01-09-2017 End: 2023 take 1 tablet by mouth twice daily Valacyclovir (Valtrex) 1,000 MG tablet Discontinued 1000 MG PO TWICE A DAY January 08, 2017 11:00pm 2023 7:19am Problems Active Problems Problem Classification Problem Date Documented Date Episodic/Chronic Adjustment disorders (4 sources) Adjustment disorder; Translations: [Adjustment disorder, unspecified] Onset: 07-19-2023 07-19-2023 Chronic Appendicitis and other appendiceal conditions (4 sources) Acute appendicitis; Translations: [Unspecified acute appendicitis] 04-16-2015 Episodic Contraceptive and procreative management (12 sources) Sterilization requested; Translations: [Encounter for sterilization] Onset: 01-18-2023 01-18-2023 Episodic Diabetes or abnormal glucose tolerance complicating ; childbirth; or the puerperium (20 sources) Abnormal glucose level; Translations: [Abnormal glucose complicating ] Onset: 03-29-2023 03-29-2023 Episodic Hemorrhoids (3 sources) Thrombosed external hemorrhoids; Translations: [Hemorrhoids] Onset: 12-01-2016 12-04-2016 Episodic Hypertension complicating ; childbirth and the puerperium (2 sources) Transient hypertension of with complication ; Translations: [Gestational [-induced] hypertension without significant proteinuria, complicating the puerperium] 06-17-2023 Episodic Immunizations and screening for infectious disease (1 source) Vaccination needed; Translations: [Encounter for immunization] 03-27-2023 Episodic Other complications of (2 sources) Uterine size for dates discrepancy; Translations: [Uterine size-date discrepancy, third trimester] 05-24-2023 Episodic Other complications of (4 sources) High risk ; Translations: [Supervision of high risk , unspecified, third trimester] 05-24-2023 Episodic Other complications of (1 source) Supervision of other high risk pregnancies, third trimester; Translations: [Supervision of other high-risk ] 2023 Episodic Other complications of (1 source) Uterine size-date discrepancy, third trimester; Translations: [Uterine size-date discrepancy, third trimester] Onset: 05-24-2023 Episodic Other lower respiratory disease (1 source) Other specified respiratory disorders; Translations: [Other specified respiratory disorders] Onset: 05-11-2024 Episodic Other nervous system disorders (2 sources) Postoperative pain ; Translations: [Other acute postprocedural pain] 06-25-2023 Episodic Other screening for suspected conditions (not mental disorders or infectious disease) (1 source) Patient encounter status; Translations: [Encounter for other specified screening] 02-02-2023 Episodic Other upper respiratory infections (1 source) Acute upper respiratory infection, unspecified; Translations: [Acute upper respiratory infection, unspecified] Onset: 05-11-2024 Episodic Residual codes; unclassified (1 source) Gestation period, 20 weeks; Translations: [20 weeks gestation of ] 02-02-2023 Episodic Residual codes; unclassified (1 source) Gestation period, 24 weeks; Translations: [24 weeks gestation of ] 02-27-2023 Episodic Residual codes; unclassified (1 source) Gestation period, 28 weeks; Translations: [28 weeks gestation of ] 03-27-2023 Episodic Residual codes; unclassified (2 sources) Gestation period, 36 weeks; Translations: [36 weeks gestation of ] 05-24-2023 Episodic Residual codes; unclassified (1 source) Gestation period, 37 weeks; Translations: [37 weeks gestation of ] 05-30-2023 Episodic Residual codes; unclassified (1 source) Gestation period, 38 weeks; Translations: [38 weeks gestation of ] 06-08-2023 Episodic Residual codes; unclassified (1 source) Gestation period, 39 weeks; Translations: [39 weeks gestation of ] 05-24-2023 Episodic Residual codes; unclassified (1 source) 39 weeks gestation of ; Translations: [ state, incidental] 2023 Episodic Residual codes; unclassified (1 source) History of uterine scar from previous surgery; Translations: [Other postprocedural status] 2023 Episodic Past or Other Problems Problem Classification Problem Date Documented Da te Episodic/Chronic Other infections; including parasitic (12 sources) History of sexually transmitted disease; Translations: [Personal history of other infectious and parasitic diseases] Onset: 01-16-2023 01-16-2023 Episodic Other and delivery including normal (20 sources) ; Translations: [Encounter for supervision of normal , unspecified, unspecified trimester] Onset: 01-16-2023 01-16-2023 Episodic Previous (3 sources) Uterine scar from previous surgery affecting ; Translations: [Maternal care for low transverse scar from previous delivery] Onset: 01-16-2023 05-24-2023 Episodic Residual codes; unclassified (12 sources) FH: Muscular dystrophy; Translations: [Family history of epilepsy and other diseases of the nervous system] Onset: 01-16-2023 01-16-2023 Episodic Residual codes; unclassified (1 source) 24 weeks gestation of ; Translations: [24 weeks gestation of ] Onset: 03-27-2023 Episodic Screening and history of mental health and substance abuse codes (20 sources) H/O: depression; Translations: [Personal history of other mental and behavioral disorders] Onset: 01-16-2023 01-16-2023 Episodic Unclassified (4 sources) No history of clinical finding in subject; Translations: [No significant past medical history] 04-16-2015 Results Test Name Value Interpretation Reference Range Facility Urgent Care Visit Reporton 0 05-11-2024 Urgent Care Visit Report [facility] [address], [address] [place] [id number] OFFICE VISIT Date of Service: 05/11/24 MR#: [id number] Acct: [id number] Name: IVY LINCOLN Rep #: [id number] : 1990 Provider: JEFF vogel Age/Sex: 33/F Location: [facility] Status: Signed Intake Vital Signs 09/17/23 17:22 05/11/24 09:34 Height 5 ft 6 in Weight: 149 lb 4 oz BMI 24.0 BP 116/76 122/64 H Blood Pressure Location Lt brachial Rt brachial Position Sitting Sitting Respiration 16 15 Pulse 120 H 98 Pulse Source NIBP NIBP Temp 101.7 F H 98.0 F Temp Source Temporal Oral Pulse Oximetry (%) 98 98 Oxygen Delivery Method room air room air Intake Visit Reasons: SORE THROAT, CONGESTION Chief Complaint: ST, chills, sweats, fever, drainage, SOB 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 concern for PNA but aware we have no radiology today, would still like exam. [facility] Surgical History (Updated 09/17/23 @ 17:24 by Shea Villarreal) History of section History of appendectomy Social History Smoking Status: Never smoker HPI HPI Chief Complaint: ST, chills, sweats, fever, drainage, SOB Details: IVY LINCOLN, is a 33 F who presents to the office today for concerns regarding sore throat, chills, sweats, fever, drainage, and shortness of breath. This has been ongoing for 4 days and worsening. She expresses concerns regarding possible pneumonia. She underwent flu and COVID testing prior to examination that was negative. She has taken OTC medication without much relieve. 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 ROS Const Constitutional: Positive for chills, fatigue, fever(s), headache(s) and abnormal sleep pattern (more than typical); No body ache or change in appetite Eyes Eyes: Positive for discharge (watery); No blurry vision, change in vision, double vision, irritation, vision loss, dry eyes, bulging eyes, floaters, visual disturbances, eye pain, Light sensitivity, spots in vision, tunnel vision or other ENT ENT: Positive for nasal congestion, sinus pressure, sinus pain, nasal discharge (clear, green), post nasal drip, headache(s), hoarseness and sore throat; No abnormal hearing, ear or mastoid pain, ear discharge, ear pressure, hearing loss, tinnitus, dizziness/vertigo, balance problems, nosebleed/epistaxis, nose pain, facial pain, dental pain, dif ficulty swallowing, bad breath, lip swelling, mouth lesions, mouth pain, neck pain, tongue swelling or throat swelling Resp Respiratory: Positive for cough Cough: Yes productive, change in phlegm color (Green), shortness of breath sob: SOB with activity and wheezing; No chest congestion, hemoptysis, pain on inspiration, pain with cough or stridor Cardio Cardiology: No chest pain at rest, chest pain with exertion, shortness of breath, dyspnea on exertion or lightheadedness Gastro GI: Positive for abdominal pain (upper abdomen) and constipation (Last bowel movement- 3 or more days); No change in bowel habits, diarrhea, difficulty swallowing, nausea/dyspepsia or vomiting Genitourinary-Female: No burning urination or urinary frequency Musc Musculoskeletal: No joint pain or neck pain Skin Skin: No rash Neuro Neurology: Positive for headache(s); No abnormal hearing or visual disturbances Psych Psychiatric: Positive for abnormal sleep pattern (more than typical) and No change in appetite Endo Endocrine: Positive for fatigue Aller/Imm Allergy/Immunologic: Positive for wheezing; No lip swelling, throat swelling or tongue swelling Exam Const General: cooperative, healthy appearing, comfortable and no acute distress Orientation: alert, awake and oriented x3 HENMT Head: normal to inspection and normocephalic Ears: hearing grossly normal bilaterally, external ears normal and TM's normal bilaterally Nose: external nose normal, nares normal and no nasal discharge Face and sinus: normal facial exam and sinuses nontender Mouth: oral mucosae normal, lip normal, tongue normal, oropharynx normal and moist mucous membranes Throat: posterior oropharynx normal, tonsils normal, uvula midline and no postnasal drainage Eyes General: appearance normal, both eyes and all related structures Neck Neck: normal visual inspection and no lymphadenopathy Carotids: normal carotid upst (more content not included)... Normal [facility] Urgent Care Visit Reporton 0 09-17-2023 Urgent Care Visit Report [facility] [address], [address] [place] [address] OFFICE VISIT Date of Service: 09/17/23 MR#: [id number] Acct: [id number] Name: IVY LINCOLN Rep #: [id number] : 1990 Provider: RAMONE Blanco Age/Sex: 33/F Location: [facility] Status: Signed Intake Vital Signs 06/15/23 05:37 09/17/23 17:22 Height 5 ft 6 in 5 ft 6 in Weight: 149 lb 4 oz BMI 24.0 BP 116/76 Blood Pressure Location Lt brachial Position Sitting Respiration 16 Pulse 120 H Pulse Source NIBP Temp 101.7 F H Temp Source Temporal Pulse Oximetry (%) 98 Oxygen Delivery Method room air Intake Visit Reasons: ST/CHILLS/WHITE SPOTS IN THROAT Chief Complaint: ST, chills, BA, ROMERO, fever Aegis Console Operator Track Required: No Is patient in pain?: Yes Allergies No Known Allergies Allergy (Verified 09/17/23 17:22) Is last menstrual period known: No Post menopausal: No Patient : No Nurse's Note: ST, chills, BA, ROMERO, fever x 24 hours. + voice changes, very painful to swallow PFSH Surgical History (Updated 09/17/23 @ 17:24 by Shea Villarreal) History of section History of appendectomy Social History Smoking Status: Never smoker HPI HPI Chief Complaint: ST, chills, BA, ROMERO, fever Details: IVY LINCOLN, is a 33 F who presents to the office today for [facility] for approximately 2-day history of progressively worsening sore throat, chills, fever (? tmax), myalgias, headache with swollen tender cervical lymph nodes in front of neck, no cough. Painful swallowing appreciated though no difficulty swallowing/drooling. No rash. No complaints of chest pressure/shortness of breath/dyspnea on exertion. No close contacts with similar complaints. ???No ikce-chf-fyiqmlh products taken to assist. No other associated symptoms and no other alleviating/aggravating factors. ROS Const Constitutional: No other (As above) Exam Const General: cooperative, healthy appearing and no acute distress Orientation: alert, awake and oriented x3 HENMT Head: normal to inspection Ears: hearing grossly normal bilaterally, external ears normal, TM's normal bilaterally and EAC's normal Nose: external nose normal, nares normal, septum normal and no nasal discharge Face and sinus: normal facial exam, sinuses nontender and face symmetric Mouth: oral mucosae normal, lip normal, tongue normal and oropharynx normal Throat: posterior oropharynx normal, uvula midline, abnormal tonsil bilaterally erythema w/ exudates and +1 hypertrophy, and no postnasal drainage Eyes General: appearance normal, both eyes and all related structures Neck Neck: normal visual inspection, full ROM, no meningeal signs, supple and lymphadenopathy (Bilateral anterior cervical lymph node swelling/tender to palpation) Neck mass: No Thyroid: thyroid normal Chest Chest palpation inspection: normal inspection of the chest Resp Effort Inspection: normal respiratory effort and able to speak in complete sentences Auscultation: Bilateral: Clear to Auscultation Cardio Palpation: normal PMI Rate: regular rate Rhythm: regular rhythm Heart Sounds: S1 normal, S2 normal, no gallops, no murmurs and no rubs Pulses: radial pulses present Skin General: no rashes or lesions noted Neuro General: patient alert, patient awake and patient oriented x3 Cognition: normal cognition Speech: speech normal Psych Appearance: grossly normal Mental Status: mental status grossly normal Mood: congruent mood Affect: normal affect Speech and Movement: speech and movement normal Attitude: cooperative Diagnoses Acute streptococcal pharyngitis J02.0 Assessment and Plan Assessment and Plan (1) Acute streptococcal pharyngitis: Status: Acute Plan: - by 07/18 [facility] Amoxicillin as prescribed today. Supportive measures as instructed today. Follow-up with PCP in 3 to 5 days should symptoms not improve, ED sooner should symptoms worsen or any other concerns develop. Patient states acknowledging understanding all the above Coding Level of Care Code Off vis,new,level 3 Diagnoses No active medical problems Assessment and Plan Assessment and Plan (1) No active medical problems: Medications: New amoxicillin 500 mg PO TID 30 tabs 0RF Discontinued oxycodone Discontinued Reason: Order Completed 5 mg PO Q6H 1 week 7 tabs 0RF Z98.891 - History of uterine scar from previous surgery 09/17/23 1731 Date Mike Love Signature: Date (if applicable) CC: Normal [facility] ETHYL GLUCURONIDE UR SCRon 0 07-20-2023 Ethyl glucuronide Screen Ql (U) Negative Normal Negative [facility] Comment on above: Order Comment: Speci men Type: BLOOD SPECIMEN Ordering Facility: [facility] Address: [address] [place] [id number] Result Comment: Scre en cutoff concentration: 500 ng/mL ethyl glucuronide. Immunoassay screen only. Cross reactivity with other substances can occur with immunoassay screening. Detection of any drug(s) in this panel is presumptive only. These tests are for medical purposes only and should not be used for compliance monitoring, legal, or forensic use. This test was developed and its performance characteristics determined by [facility] [place] ([facility] It has not been cleared or approved by the FDA. [facility] is regulated under CLIA as qualified to perform high-complexity testing. This test is used for clinical purposes. It should not be regarded as investigational or for research. Performed By: #### G [id number] #### [facility] CLIA [id number] [address] OF [place] PAIN PANEL, UR QUANTon 07-19 8-Znxzetjkxf-5,5-Dime thyl-3,3-Diphenylpyrr olidine (EDDP) Confirm (U) [Mass/Vol] <6 Normal <6 [facility] Comment on above: Order Comment: Speci men Type: URINE SPECIMENOrdering Facility: [facility] Address: [address] [place] [address] Result Comment: EDDP is a metabolite of methadone. Performed By: #### L [id number] ####[facility] [id number] [address] [place] 6-Monoacetylmorphine (6-CELESTE) (U) [Mass/Vol] <5 Normal <5 [facility] Comment on above: Order Comment: Speci men Type: URINE SPECIMENOrdering Facility: [facility] Address: [address] [place] [address] Result Comment: 6-MA M (6-monoacetylmorphine, also known as 6-acetylmorphine) is a unique metabolite of heroin. Presence of 6-CELESTE indicates use of heroin. 6-CELESTE is further metabolized to morphine and absence of 6-CELESTE does not rule out the use of heroin. Performed By: #### L [id number] ####[facility] LABIA [id number] [address] [place] [id number] [address] [place] Amphetamine Confirm (U) [Mass/Vol] <5 Normal <5 [facility] Comment on above: Order Comment: Speci men Type: URINE SPECIMENOrdering Facility: [facility] Address: [address] [place] [address] Performed By: #### L [id number] ####[facility] LABIA [id number] [place] [address] [place] Benzoylecgonine Confirm (U) [Mass/Vol] <24 Normal <24 [facility] Comment on above: Order Comment: Speci men Type: URINE SPECIMENOrdering Facility: [facility] Address: [address] [place] [address] Result Comment: Celestine oylecgonine is a metabolite of cocaine. Performed By: #### L [id number] ####[facility] [id number] [place] [address] [place] Buprenorphine (U) [Mass/Vol] <20 Normal <20 [facility] Comment on above: Order Comment: Speci men Type: URINE SPECIMENOrdering Facility: [facility] Address: [address] [place] [address] Performed By: #### L [id number] ####[facility] [id number] [place] [address] [place] Cannabinoids Confirm (U) [Mass/Vol] <16 Normal <16 [facility] Comment on above: Order Comment: Speci men Type: URINE SPECIMENOrdering Facility: [facility] Address: [address] [place] [address] Result Comment: Tetr ahydrocannabinol carboxylic acid (THCA) is a metabolite of hmjyo-0-kwcbruihnzantstftxkr which is the main active component of marijuana. Performed By: #### L [id number] ####[facility] [id number] [place] [address] [place] Codeine Confirm (U) [Mass/Vol] <11 Normal <11 [facility] Comment on above: Order Comment: Speci men Type: URINE SPECIMENOrdering Facility: [facility] Address: [address] [place] [address] Performed By: #### L [id number] ####[facility] LABIA [id number] [place] [address] [place] Dihydrocodeine Confirm (U) [Mass/Vol] <5 Normal <5 [facility] Comment on above: Order Comment: Speci men Type: URINE SPECIMENOrdering Facility: [facility] Address: [address] [place] [address] Performed By: #### L [id number] ####[facility] LABIA [id number] [place] [address] [place] fentaNYL Confirm (U) [Mass/Vol] <6 Normal <6 [facility] Comment on above: Order Comment: Speci men Type: URINE SPECIMENOrdering Facility: [facility] Address: [address] [place] [address] Performed By: #### L [id number] ####[facility] LABIA [id number] [place] [address] [place] HYDROcodone Confirm (U) [Mass/Vol] <8 Normal <8 [facility] Comment on above: Order Comment: Speci men Type: URINE SPECIMENOrdering Facility: [facility] Address: [address] [place] [address] Result Comment: Hydr ocodone is a metabolite of dihydrocodeine. Performed By: #### L [id number] ####[facility] LABIA [id number] [place] [address] [place] HYDROmorphone Confirm (U) [Mass/Vol] <5 Normal <5 [facility] Comment on above: Order Comment: Speci men Type: URINE SPECIMENOrdering Facility: [facility] Address: [address] [place] [address] Result Comment: Hydr omorphone is a metabolite of hydrocodone. Performed By: #### L [id number] ####[facility] [id number] [address] [place] Methadone Confirm (U) [Mass/Vol] <16 Normal <16 [facility] Comment on above: Order Comment: Speci men Type: URINE SPECIMENOrdering Facility: [facility] Address: [address] [place] [address] Performed By: #### L [id number] ####[facility] [id number] [place] [address] [place] Methamphetamine Confirm (U) [Mass/Vol] <8 Normal <8 [facility] Comment on above: Order Comment: Speci men Type: URINE SPECIMENOrdering Facility: [facility] Address: [address] [place] [address] Performed By: #### L [id number] ####[facility] [id number] [address] [place] Morphine Confirm (U) [Mass/Vol] <10 Normal <10 [facility] Comment on above: Order Comment: Speci men Type: URINE SPECIMENOrdering Facility: [facility] Address: [address] [place] [address] Result Comment: Morp mary is a metabolite of codeine and heroin. Performed By: #### L [id number] ####[facility] [id number] [address] [place] Norbuprenorphine (U) [Mass/Vol] <20 Normal <20 [facility] Comment on above: Order Comment: Speci men Type: URINE SPECIMENOrdering Facility: [facility] Address: [address] [place] [address] Result Comment: Norb uprenorphine is the primary active metabolite of buprenorphine. Performed By: #### L [id number] ####[facility] [id number] [place] [address] [place] Norfentanyl Confirm (U) [Mass/Vol] <6 Normal <6 [facility] Comment on above: Order Comment: Speci men Type: URINE SPECIMENOrdering Facility: [facility] Address: [address] [place] [address] Result Comment: Norf entanyl is a metabolite of fentanyl. Performed By: #### L [id number] ####[facility] LABIA [id number] [address] [place] Nortramadol (U) [Mass/Vol] <20 Normal <20 [facility] Comment on above: Order Comment: Speci men Type: URINE SPECIMENOrdering Facility: [facility] Address: [address] [place] [address] Result Comment: Desm ethyltramadol is a metabolite of tramadol. Performed By: #### L [id number] ####[facility] [id number] [place] [address] [place] NOTE,UR PAIN BALES Normal [facility] Comment on above: Order Comment: Speci men Type: URINE SPECIMENOrdering Facility: [facility] Address: [address] [place] [address] Result Comment: This test is for medical use only. This test was developed and its performance characteristics determined by [facility]'s [facility] Pathology [facility] Laboratory [facility] [place] (-[facility]). It has not been cleared or approved by the FDA. -[facility] is regulated under CLIA as qualified to perform high-complexity testing. This test is used for clinical purposes. It should not be regarded as investigational or for research. Performed By: #### L [id number] ####[facility] LABIA [id number] [place] [address] [place] oxyCODONE Confirm (U) [Mass/Vol] <10 Normal <10 [facility] Comment on above: Order Comment: Speci men Type: URINE SPECIMENOrdering Facility: [facility] Address: [address] [place] [address] Performed By: #### L [id number] ####[facility] [id number] [place] [address] [place] oxyMORphone Confirm (U) [Mass/Vol] 30 ng/mL High <5 [facility] Comment on above: Order Comment: Speci men Type: URINE SPECIMENOrdering Facility: [facility] Address: [address] [place] [address] Result Comment: Oxym orphone may arise from oxymorphone containing drugs or by metabolism of oxycodone. Performed By: #### L [id number] ####[facility] [id number] [place] [address] [place] traMADol Confirm (U) [Mass/Vol] <25 Normal <25 [facility] Comment on above: Order Comment: Speci men Type: URINE SPECIMENOrdering Facility: [facility] Address: [address] [place] [address] Performed By: #### L [id number] ####[facility] [id number] [place] [address] [place] PHOSPHATIDYLETHANOL (PETH)on 07-20-2023 EER PETH See Note Normal [facility] Comment on above: Order Comment: Speci men Type: BLOOD SPECIMEN Ordering Facility: [facility] Address: [address] [place] [address] Result Comment: Auth orized individuals can access the [facility] Enhanced Report using the following link: [email or web address] Performed By: #### G TGST1 #### [facility] [id number] [address] [place] [address] [place] PETH 16:0/18.2 (PLPETH) <10 Normal [facility] Comment on above: Order Comment: Speci men Type: BLOOD SPECIMEN Ordering Facility: [facility] Address: [address] [place] [address] Result Comment: Refe rence ranges are not well established. Performed By: #### G TGST1 #### [facility] [id number] [address] [place] [address] [place] PETH 16:0/18:1 (POPETH) <10 Normal [facility] Comment on above: Order Comment: Speci men Type: BLOOD SPECIMEN Ordering Facility: [facility] Address: [address] [place] [address] Result Comment: PEth 16:0/18:1 (POPEth) Less than 10 ng/mL............Not detected Less than 20 ng/mL............Abstinence or light alcohol consumption 20 - 200 ng/mL................Moderate alcohol consumption Greater than 200 ng/mL........Heavy alcohol consumption or chronic alcohol use (Reference: Donovan Casiano and Supriya Urias 2018 J. Forensic Sci) Performed By: #### G TGST1 #### [facility] [id number] [address] [place] [address] [place] PETH INTERPRETATION See Comment Normal [facility] Comment on above: Order Comment: Speci men Type: BLOOD SPECIMEN Ordering Facility: [facility] Address: [address] [place] [address] Result Comment: Phos phatidylethanol (PEth) is a group of phospholipids formed in the presence of ethanol, phospholipase D and phosphatidylcholine. PEth is known to be a direct alcohol biomarker. The predominant PEth homologues are PEth 16:0/18:1 (POPEth) and PEth 16:0/18:2 (PLPEth), which account for 37-46% and 26-28% of the total PEth homologues, respectively. PEth is incorporated into the phospholipid membrane of red blood cells and has a general half-life of 4-10 days and a window of detection of 2-4 weeks. However, the window of detection is longer in individuals who chronically or excessively consume alcohol. The limit of quantification is 10 ng/mL. Serial monitoring of PEth may be helpful in monitoring alcohol abstinence over time. PEth results should be interpreted in the context of the patient's clinical and behavioral history. Patients with advanced liver disease may have falsely elevated PEth concentrations (Magaly MENENDEZ et al 2018, Alcoholism Clinical & Experimental Research). This test was developed and its performance characteristics determined by [facility] It has not been cleared or approved by the U.S. Food and Drug Administration. This test was performed in a CLIA-certified laboratory and is intended for clinical purposes. Performed By: [facility] [address] [place] [address] Community [employer] Director: Murali Buenrostro MD, PhD CLIA Number: [id number] Performed By: #### G TGST1 #### [facility] CLIA [id number] [address] [place] [address] [place] SPECIMEN VALIDITY, URINEon 0 07-20-2023 CHROMATE,URINE <10 Normal <50 [facility] Comment on above: Order Comment: Speci men Type: BLOOD SPECIMEN Ordering Facility: [facility] Address: [address] [place] [address] Performed By: #### G TGST1 #### [facility] CLIA [id number] [address] [place] [address] [place] CREATININE,URINE 11.2 mg/dL Low 20.0-300.0 [facility] Comment on above: Order Comment: Speci men Type: BLOOD SPECIMEN Ordering Facility: [facility] Address: [address] [place] [address] Performed By: #### G TGST1 #### [facility] CLIA [id number] [address] [place] [address] [place] NITRITES,URINE <50 Normal <500 [facility] Comment on above: Order Comment: Speci men Type: BLOOD SPECIMEN Ordering Facility: [facility] Address: [address] [place] [address] Performed By: #### G TGST1 #### [facility] CLIA [id number] [address] [place] [address] [place] OXIDANTS,URINE <38 Normal <200 [facility] Comment on above: Order Comment: Speci men Type: BLOOD SPECIMEN [facility]ing Facility: [facility] Address: [address] [place] [address] Performed By: #### G TGST1 #### [facility] CLIA [id number] [address] [place] [address] [place] pH (U) 6.4 [pH] Normal 4.5-8.0 [facility] Comment on above: Order Comment: Speci men Type: BLOOD SPECIMEN [facility]ing [facility]: [facility] Address: [address] [place] [address] Performed By: #### G TGST1 #### [facility] [id number] [address] [place] [address] [place] SPEC GRAVITY,UR 1.003 Normal 1.003-1.035 [facility] Comment on above: Order Comment: Speci men Type: BLOOD SPECIMEN [facility]ing [facility]: [facility] Address: [address] [place] [address] Performed By: #### G TGST1 #### [facility] [id number] [address] [place] [address] SPECIMEN VALIDITY QUALITY Specimen quality results within acceptable limits Normal [facility] Comment on above: Order Comment: Speci men Type: BLOOD SPECIMEN [facility]ing [facility]: [facility] Address: [address] [place] [address] Performed By: #### G TGST1 #### [facility] [id number] [address] [place] [address] TOX SCREEN ROUT URon 024 Amphetamines Confirm (U) [Mass/Vol] Negative Normal Negative [facility] Comment on above: Order Comment: Speci men Type: URINE SPECIMENOrdering Facility: [facility] Address: [address] [place] [address] Result Comment: Cuto ff threshold at 1000 ng/mL. Performed By: #### U TOX2 ####[facility] LABCLIA [id number] [place] [address] [place] BARBITURATES, URINE Negative Normal Negative [facility] Comment on above: Order Comment: Speci men Type: URINE SPECIMENOrdering Facility: [facility] Address: [address] [place] [address] Result Comment: Cuto ff threshold at 200 ng/mL. Performed By: #### U TOX2 ####[facility] LABCLIA [id number] [place] [address] [place] BENZODIAZEPINES, UR Negative Normal Negative [facility] Comment on above: Order Comment: Speci men Type: URINE SPECIMENOrdering Facility: [facility] Address: [address] [place] [address] Result Comment: Cuto ff threshold at 200 ng/mL. Performed By: #### U TOX2 ####[facility] LABCLIA [id number] [place] [address] [place] Cannabinoids Screen Ql (U) Negative Normal Negative [facility] Comment on above: Order Comment: Speci men Type: URINE SPECIMENOrdering Facility: [facility] Address: [address] [place] [address] Result Comment: Cuto ff threshold at 50 ng/mL. Performed By: #### U TOX2 ####[facility] LABCLIA [id number] [place] [address] [place] Cocaine Ql (U) Negative Normal Negative [facility] Comment on above: Order Comment: Speci men Type: URINE SPECIMENOrdering Facility: [facility] Address: [address] [place] [address] Result Comment: Cuto ff threshold at 300 ng/mL. Performed By: #### U TOX2 ####[facility] LABCLIA [id number] [place] [address] [place] Ethanol (U) [Mass/Vol] <11 Normal <11 [facility] Comment on above: Order Comment: Speci men Type: URINE SPECIMENOrdering Facility: [facility] Address: [address] [place] [address] Performed By: #### U TOX2 ####[facility] LABIA [id number] [place] [address] [place] Opiates Screen Ql (U) Negative Normal Negative [facility] Comment on above: Order Comment: Speci men Type: URINE SPECIMENOrdering Facility: [facility] Address: [address] [place] [address] Result Comment: Cuto ff threshold at 300 ng/mL. Performed By: #### U TOX2 ####[facility] [id number] [place] [address] [place] oxyCODONE cutoff Screen (U) [Mass/Vol] Negative Normal Negative [facility] Comment on above: Order Comment: Speci men Type: URINE SPECIMENOrdering Facility: [facility] Address: [address] [place] [address] Result Comment: Cuto ff threshold at 100 ng/mL. Performed By: #### U TOX2 ####[facility] LABIA [id number] [place] [address] [place] Phencyclidine Ql (U) Negative Normal Negative [facility] Comment on above: Order Comment: Speci men Type: URINE SPECIMENOrdering Facility: [facility] Address: [address] [place] [address] Result Comment: Cuto ff threshold at 25 ng/mL. Performed By: #### U TOX2 ####[facility] LABIA [id number] [place] [address] [place] Basophil percentageOrdered B y: Laly Chew on 06-16-2023 Hemoglobin (Bld) [Mass/Vol] 9.7 g/dL 12.0-15.0 [facility] WBC (Bld) [#/Vol] 11.4 10*3/uL 4.4-11.0 [facility] Bedside Glucoseon 06-16-2023 FINGERSTICK GLU 84 mg/dL Normal 74-106 [facility] Comment on above: Result Comment: PREM SANTILLAN OF PATIENT CARE PER NURSING PROTOCOL Performed By: #### Yonas BURNHAM, L100.0100 #### [facility] [address] [place], [address] CBC-Complete Blood Cnt No Di ffon 06-16-2023 Erythrocyte distribution width (RBC) [Ratio] 13.0 % Normal 11.6-14.6 [facility] Comment on above: Order Comment: S Performed By: #### Yonas BURNHAM, L100.0100 #### [facility] [address] [place], [address] Hematocrit (Bld) [Volume fraction] 29.5 % Low 37-47 [facility] Comment on above: Order Comment: S Performed By: #### Yonas BURNHAM, L100.0100 #### [facility] [address] [place], [address] Hemoglobin (Bld) [Mass/Vol] 9.7 g/dL Low 12.0-15.0 [facility] Comment on above: Order Comment: S Performed By: #### Yonas BURNHAM, L100.0100 #### [facility] [address] [place], [address] MCH (RBC) [Entitic mass] 32.1 pg High 27.0-32.0 [facility] Comment on above: Order Comment: S Performed By: #### Yonas BURNHAM, L100.0100 #### [facility] [address] [place], [address] MCHC (RBC) [Mass/Vol] 32.9 g/dL Normal 32-[address] [facility] Comment on above: Order Comment: S Performed By: #### Yonas BURNHAM, L100.0100 #### [facility] [address] [place], [address] MCV (RBC) [Entitic vol] 97.7 fL Normal 81-99 [facility] Comment on above: Order Comment: S Performed By: #### Yonas BURNHAM, L100.0100 #### [facility] [address] [place], [address] Platelet mean volume (Bld) [Entitic vol] 10.8 fL Normal 6.2-12.0 [facility] Comment on above: Order Comment: S Performed By: #### Yonas BURNHAM, L100.0100 #### [facility] [address] [place], [address] Platelets (Bld) [#/Vol] 172 10*3/uL Normal 150-450 [facility] Comment on above: Order Comment: S Performed By: #### Yonas BURNHAM, L100.0100 #### [facility] [address] [place], [address] RBC (Bld) [#/Vol] 3.02 10*6/uL Low 4.2-5.4 [facility] Comment on above: Order Comment: S Performed By: #### Yonas BURNHAM, L100.0100 #### [facility] [address] [place], [address] RDW SD 44.9 fl High 35.1-43.9 [facility] Comment on above: Order Comment: S Performed By: #### Yonas BURNHAM, L100.0100 #### [facility] [address] [place], [address] WBC (Bld) [#/Vol] 11.4 10*3/uL High 4.4-11.0 [facility] Comment on above: Order Comment: S Performed By: #### B TS, L100.0100 #### [facility] [address] [place], [address] Determination of erythrocyte mean corpuscular volume (MCV)Ordered By: Laly Chew on 06-16-2023 MCV (RBC) [Entitic vol] 97.7 fL 81-99 [facility] Erythrocyte distribution wid th ratioOrdered By: Laly Chew on 06-16-2023 Erythrocyte distribution width (RBC) [Ratio] 13.0 % 11.6-14.6 [facility] Erythrocyte distribution wid th standard deviationOrdered By: Laly Chew on 06-16-2023 Erythrocyte distribution width (RBC) [Entitic vol] 44.9 fL 35.1-43.9 [facility] Hematocrit Auto (Bld) [Volum e fraction]Ordered By: Laly Chew on 06-16-2023 Hematocrit (Bld) [Volume fraction] 29.5 % 37-47 [facility] - Hematology and Cell countsOrdered By: Laly Chew on 06-16-2023 MCH (RBC) [Entitic mass] 32.1 pg 27.0-32.0 [facility] MCHC (RBC) [Mass/Vol] 32.9 g/dL 32-[address] [facility] Platelet mean volume (Bld) [Entitic vol] 10.8 fL 6.2-12.0 [facility] Platelets (Bld) [#/Vol] 172 10*3/uL 150-450 [facility] RBC Auto (Bld) [#/Vol]Ordere d By: Laly Chew on 06-16-2023 RBC (Bld) [#/Vol] 3.02 10*6/uL 4.2-5.4 [facility] Thin prep Papanicolaou smear with manual screeningOrdered By: Laly Chew on 06-16-2023 Thin prep Papanicolaou smear with manual screening 84 mg/dL 74-106 [facility] Comment on above: MANAGEMENT OF PATIEN T CARE PER NURSING PROTOCOL Absolute lymphocyte countOrd ered By: Laly Chew on 06-15-2023 Lymphocytes Auto (Unsp spec) [#/Vol] 1.79 10*3/uL 0.83-4.51 [facility] Automated lymphocyte count a s percentage of total leukocytesOrdered By: Laly Chew on 06-15-2023 Lymphocytes/100 WBC Auto (Unsp spec) 18.0 % 19-41 [facility] Basophil percentageOrdered B y: Laly Chew on 06-15-2023 Basophils/100 WBC (Bld) 0.3 % 0-1 [facility] Eosinophils/100 WBC (Bld) 1.0 % 0-5 [facility] Monocytes/100 WBC (Bld) 5.7 % 0-10 [facility] Neutrophils (Bld) [#/Vol] 7.4 10*3/uL 2.0-7.7 [facility] Neutrophils/100 WBC (Bld) 74.4 % 47-70 [facility] Bedside Glucoseon 06-15-2023 FINGERSTICK GLU 84 mg/dL Normal 74-106 [facility] Comment on above: Result Comment: PREM GEMENT OF PATIENT CARE PER NURSING PROTOCOL Performed By: #### L 501.080 #### [facility] [address] [place], [address] FINGERSTICK GLU 149 mg/dL High 74-106 [facility] Comment on above: Result Comment: PREM GEMENT OF PATIENT CARE PER NURSING PROTOCOL Performed By: #### L 501.080 #### [facility] [address] [place], [address] CBC W/Diff, Automatedon - Absolute Lymph 1.79 X10 3/uL Normal 0.83-4.51 [facility] Comment on above: Performed By: #### Yonas TS, L100.0100 #### [facility] [address] [place], [address] Absolute Neut 7.4 X10 3/uL Normal 2.0-7.7 [facility] Comment on above: Performed By: #### Yonas BURNHAM, L100.0100 #### [facility] [address] [place], [address] Basophils/100 WBC (Bld) 0.3 % Normal 0-1 [facility] Comment on above: Performed By: #### Yonas BURNHAM, L100.0100 #### [facility] [address] [place], [address] Eosinophils/100 WBC (Bld) 1.0 % Normal 0-5 [facility] Comment on above: Performed By: #### Yonas BURNHAM, L100.0100 #### [facility] [address] [place], [address] Erythrocyte distribution width (RBC) [Ratio] 12.5 % Normal 11.6-14.6 [facility] Comment on above: Performed By: #### Yonas BURNHAM, L100.0100 #### [facility] [address] [place], [address] Hematocrit (Bld) [Volume fraction] 34.6 % Low 37-47 [facility] Comment on above: Performed By: #### Yonas BURNHAM, L100.0100 #### [facility] [address] [place], [address] Hemoglobin (Bld) [Mass/Vol] 11.6 g/dL Low 12.0-15.0 [facility] Comment on above: Performed By: #### Yonas BURNHAM, L100.0100 #### [facility] [address] [place], [address] IG% 0.600 Normal 0.0-0.9 [facility] Comment on above: Result Comment: IG% - Immature Granulocytes (promyelocytes, myelocytes and metamyelocytes) > 1% indicates that a LEFT SHIFT is Present. Performed By: #### Yonas BURNHAM, L100.0100 #### [facility] [address] [place], [address] Lymphocytes/100 WBC (Bld) 18.0 % Low 19-41 [facility] Comment on above: Performed By: #### Yonas BURNHAM, L100.0100 #### [facility] [address] [place], [address] MCH (RBC) [Entitic mass] 32.0 pg Normal 27.0-32.0 [facility] Comment on above: Performed By: #### Yonas BURNHAM, L100.0100 #### [facility] [address] [place], [address] MCHC (RBC) [Mass/Vol] 33.5 g/dL Normal 32-[address] [facility] Comment on above: Performed By: #### Yonas BURNHAM, L100.0100 #### [facility] [address] [place], [address] MCV (RBC) [Entitic vol] 95.3 fL Normal 81-99 [facility] Comment on above: Performed By: #### Yonas BURNHAM, L100.0100 #### [facility] [address] [place], [address] Monocytes/100 WBC (Bld) 5.7 % Normal 0-10 [facility] Comment on above: Performed By: #### Yonas BURNHAM, L100.0100 #### [facility] [address] [place], [address] Neutrophils/100 WBC (Bld) 74.4 % High 47-70 [facility] Comment on above: Performed By: #### Yonas BURNHAM, L100.0100 #### [facility] [address] [place], [address] Nucleated RBC (Bld) [#/Vol] 0 10*3/uL Normal 0-5 [facility] Comment on above: Performed By: #### Yonas BURNHAM, L100.0100 #### [facility] [address] [place], [address] Platelet mean volume (Bld) [Entitic vol] 11.0 fL Normal 6.2-12.0 [facility] Comment on above: Performed By: #### Yonas BURNHAM, L100.0100 #### [facility] [address] [place], [address] Platelets (Bld) [#/Vol] 228 10*3/uL Normal 150-450 [facility] Comment on above: Performed By: #### Yonas BURNHAM, L100.0100 #### [facility] [address] [place], [address] RBC (Bld) [#/Vol] 3.63 10*6/uL Low 4.2-5.4 [facility] Comment on above: Performed By: #### Yonas BURNHAM, L100.0100 #### [facility] [address] [place], [address] RDW SD 43.0 fl Normal 35.1-43.9 [facility] Comment on above: Performed By: #### Yonas BURNHAM, L100.0100 #### [facility] [address] [place], [address] WBC (Bld) [#/Vol] 9.9 10*3/uL Normal 4.4-11.0 [facility] Comment on above: Performed By: #### Yonas BURNHAM, L100.0100 #### [facility] [address] [place], [address] Immature granulocytes/100 WB C Auto (Bld)Ordered By: Laly Chew on 06-15-2023 Immature granulocytes/100 WBC (Bld) 0.600 % 0.0-0.9 [facility] Comment on above: IG% - Immature Granu locytes (promyelocytes, myelocytes and metamyelocytes) > 1% indicates that a LEFT SHIFT is Present. L509.8000on 06-15-2023 Syphilis Abs Non-Reactive Normal [facility] Comment on above: Performed By: #### Yonas BURNHAM, L100.0100 #### [facility] [address] [place], [address] Laboratory - Drug toxicology Ordered By: Laly Chew on 06-15-2023 Amphetamines Ql (U) Negative <1000 ng/mL [facility] Benzodiazepines Ql (U) Negative < 200 ng/mL [facility] Cannabinoids Screen Ql (U) Negative < 50 ng/mL [facility] Cocaine Ql (U) Negative < 300 ng/mL [facility] Opiates Ql (U) Negative < 300 ng/mL [facility] Laboratory - Hematology and Cell countsOrdered By: Laly Chew on 06-15-2023 Nucleated RBC/100 WBC (Bld) [Ratio] 0 % 0-5 [facility] No Panel InformationOrdered By: Laly Chew on 06-15-2023 MDMA (Ecstasy) Screen Negative < 500 ng/mL [facility] Urine Barbiturates Screen Negative < 200 ng/mL [facility] Urine Drug Screen Comment [facility] Comment on above: CONFIRMATORY TESTING FOR ALL POSITIVE URINE DRUG SCREENRESULTS WILL ONLY BE SENT OUT UPON PHYSICIAN ORDER. VISTA Urine Drug Screen methods provide only preliminaryanalytical test results. A more specific alternate chemicalmethod must be used in order to obtain a confirmedanalytical result. Gas chromatography/mass spectrometery(GC/MS) is the preferred confirmatory method. Clinicalconsideration and professional judgement should be appliedto any drug of abuse test result, particularly whenpreliminary positive results are used. URINE TCA TESTING MUST BE ORDERED SEPARATELY. USE TESTMNEMONIC: [facility] Urine Methadone Screen Negative < 300 ng/mL [facility] Operative Reporton 4 Operative Report [facility] Medical Records Department [address] [place] [address] Operative Report 06/15/23 0805 MR#: [id number] Acct: [id number] Name: IVY LINCOLN Rep #: [id number] : 1990 32 From: Laly Chew MD PCP: Dr. Halina Troncoso MD Status:ADM IN Location: [id number] Assessment Plan (1) Sterilization: (2) Previous delivery affecting , antepartum: (3) Supervision of other high risk pregnancies, third trimester: (4) 39 weeks gestation of : Maternal Data Information Final DEANNE: 06/19/23 Gestational age: 39 3/7 Details Operative Information Date of Procedure: 06/15/23 Pre-Operative Diagnosis: sterilization request, previous c/s Post-Operative Diagnosis: same Indications for : Repeat Elective Classification: Scheduled Procedure Type: bilateral salpingectomy (with bilateral salpingectomy) electromechanic #1: Seb Reyes Type of Anesthesia: Spinal Anesthesiologist: Aneudy Holliday Special Medications: duramorph Antibiotic Given: Ancef 2 grams IV x1 Drain: Gloria to straight drain Estimated Blood Loss: 800 Fluids Replaced: 800 Procedure Start Time: 07:44 Procedure Stop Time: 08:14 Time of Delivery: 07:47 Findings Description of Procedure: The patient was taken to the operating room. She was prepped and draped in the dorsal supine position with a leftward tilt. A Pfannenstiel skin incision was made approximately 2 cm above the symphysis pubis and carried through to underlying layer fascia with the scalpel. The fascia was incised incised in the midline and extended laterally with the Johnson scissors. The fascia was dissected off the rectus muscles with blunt and sharp dissection. The rectus muscles were in the midline and the peritoneum was entered bluntly. The peritoneal incision was stretched and the bladder blade was placed. The uterine incision was made in a low transverse fashion with the scalpel and extended superiorly and inferiorly with blunt dissection. The amniotic membranes were ruptured bluntly and clear amniotic fluid returned. The infant's head was brought to the incision in the flexed position and delivered without difficulty. The remainder of the was delivered with gentle traction and fundal pressure in the standard fashion. The mouth and nares were bulb suctioned. The cord was clamped and cut as the was stimulated. Cord clamping was delayed. The was handed off to the waiting nursing staff. The placenta was delivered with fundal massage and gentle traction in the standard fashion. The uterus was exteriorized and cleared of all clots and debris. The cervix was dilated with a ring forcep. The uterine incision was closed with #1 Vicryl in a running locked fashion. 2 [id number] 0 Vicryl sutures were needed to the left of the midline to control bleeding from the sinus. The incision was examined and was found to be hemostatic. The left tube was followed out to the fimbriated end and grasped with Faisal clamps. The LigaSure device was used to clamp, seal and transect the antimesenteric portion of the tube over to the cornual insertion of the tube. The tube was then amputated with the LigaSure device. Excellent hemostasis of all the pedicles was noted and the same procedure was performed on the contralateral side. The uterus was placed back into the peritoneal cavity and hemostasis was again confirmed. The rectus muscles were examined and any bleeding was Bovie cauterized. The parietal peritoneum and rectus muscles were closed en bloc with an 0 Vicryl running suture. The rectus fascia was examined and any bleeding was Bovie cauterized and the rectus fascia was closed with 1 Vicryl suture in a running standard fashion. The subcutaneous tissue was examining and any bleeding was Bovie cauterized. The subcutaneous tissue was reapproximated with 3-0 Vicryl suture. The skin was closed in a subcuticular fashion by the ELECTRON BEAM WELDER SETTER with me present in the labor and delivery suite. I performed the remainder of the procedure with assistance. All sponge, lap, and needle counts were correct. The patient was taken to her room for recovery in a stable condition. Presentation: Positive for Vertex Amniotic Membrane Rupture Type: Artificial Amniotic Fluid Description: Clear Placental Delivery Description: Expressed Placenta Disposition: [facility] Specimen(s) Sent to Pathology: bilateral fallopian tubes Cord Vessel Description: 3 Vessels Cord Entanglement: None A Gender: Male ([place]) (1 minute): 8 (5 minute): 9 Delayed Cord Clamping: Yes Complications Complications: none 06/15/23 0812 Cosigner Signature (if applicable): CC: Dr. Halina Troncoso MD; Dr. Laly Chew MD Signed Normal [facility] Pathology Specimen OBon 0 PATH. Spec OB SEE PATHOLOGY REPORT Normal [facility] Comment on above: Order Comment: S Result Comment: Spec imen submitted to Anatomical Pathology Department for testing. Performed By: #### B TS, L100.0100 #### [facility] [address] [place], [address] Serum Treponema species anti body detectionOrdered By: Laly Chew on 06-15-2023 Treponema sp Ab Ql (S) Non-Reactive [facility] Surgery Specimen Level IIon 06-15-2023 Surgery Specimen Level II Patient Age/Sex Location Account Attending Physician IVY LINCOLN 32/F [id number] Dr. Laly Chew MD Specimen: [id number] Received: 06/15/23 Status: REINALDO Glaser Num: [id number] Spec Type: FALL TUBES Subm Dr: Dr. Laly Chew MD HEADER OPERATION: Tubal ligation PRE-OP DIAGNOSIS: Sterilization TISSUE SUBMITTED: Fallopian tubes MICROSCOPIC DIAGNOSIS Bilateral fallopian tubes, salpingectomy: Bilateral fallopian tubes, no pathologic diagnosis. SJ:juan 2023 MICROSCOPIC DESCRIPTION Slides are reviewed. GROSS DESCRIPTION Received in fixative is one container labeled with the patient's name and designated bilateral fallopian tubes, suture in right tube. The specimen consists of two fallopian tubes. The right fallopian tube measures 7.0 cm in length and 1.0 cm in diameter and the left fallopian tube measures 4.8 cm in length and 1.3 cm in diameter. Both fallopian tubes have normal fimbriated ends. No mass lesions are identified. Water Softener Servicer sections are submitted in two cassettes as follows: 1 - right fallopian tube, 2?left fallopian tube. / AM:juan 06/15/2023 TC:4 CPT: 30220 x2 Patient Age/Sex Location Account Attending Physician IVY LINCOLN 32/F [id number] Dr. Laly Chew MD Signed (signature on file) Dr. Ian Bradford MD 06/18/23 1120 Normal [facility] Comment on above: Performed By: #### P SUII #### [facility] [address] [place], [place], [address] Type AND Screenon 06-15-2023 ABO and Rh group Nom (Bld) Blood group O Rh(D) positive Normal [facility] Comment on above: Order Comment: S Performed By: #### B TS, L100.0100 #### [facility] [address] [place], [place], [address] Urine Drug Screen (VISTA)on 06-15-2023 AMPHETAMINES Negative Normal <1000 ng/mL [facility] Comment on above: Order Comment: S Performed By: #### Yonas BURNHAM, L100.0100 #### [facility] [address] [place], [address] BARBITIURATES Negative Normal < 200 ng/mL [facility] Comment on above: Order Comment: S Performed By: #### Yonas BURNHAM, L100.0100 #### [facility] [address] [place], [address] BENZODIAZIPINE Negative Normal < 200 ng/mL [facility] Comment on above: Order Comment: S Performed By: #### Yonas BURNHAM, L100.0100 #### [facility] [address] [place], [address] COCAINE Negative Normal < 300 ng/mL [facility] Comment on above: Order Comment: S Performed By: #### Yonas BURNHAM, L100.0100 #### [facility] [address] [place], [address] ECSTACY Negative Normal < 500 ng/mL [facility] Comment on above: Order Comment: S Performed By: #### Yonas BURNHAM, L100.0100 #### [facility] [address] [place], [address] METHADONE Negative Normal < 300 ng/mL [facility] Comment on above: Order Comment: S Performed By: #### Yonas BURNHAM, L100.0100 #### [facility] [address] [place], [address] OPIATES Negative Normal < 300 ng/mL [facility] Comment on above: Order Comment: S Performed By: #### Yonas BURNHAM, L100.0100 #### [facility] [address] [place], [address] PCP Negative Normal < 25 ng/mL [facility] Comment on above: Order Comment: S Performed By: #### B TS, L100.0100 #### [facility] [address] [place], [address] THC Negative Normal < 50 ng/mL [facility] Comment on above: Order Comment: S Performed By: #### B TS, L100.0100 #### [facility] [address] [place], [address] VISTA UDS PH 6 Normal [facility] Comment on above: Order Comment: S Performed By: #### B TS, L100.0100 #### [facility] [address] [place], [address] Urine phencyclidine (PCP) de tectionOrdered By: Laly Chew on 06-15-2023 Phencyclidine Ql (U) Negative < 25 ng/mL [facility] URINE OB DIP B/Oon Glucose Ql (U) Negative Neg mg/dL [facility] Protein.monoclonal (U) [Mass/Vol] Negative Neg mg/dL [facility] CNPNon 06-01-2023 CNPN Telephone (OBGYWM) IVY LINCOLN ([id number]) 1990 F Date Time Provider Department 06/01/23 LALY CHEW During your visit today, we recorded the following information about you: Mayda Fritz LPN 06/01/2023 4:30 PM Signed Electronic PA submitted for [employer]. Will await further response from pt's insurance. CARI Arreguin Kimberly, LPN 06/04/2023 2:03 PM Signed Spoke with pt and notified her that the Anusol hc supp. Are not covered under insurance plan. Pt stated that she picked up her lidocaine cream last week and has been using this with some relief. Pt stated that if she felt that she needed more she would you good Rx to moss picker the suppositories. Mayda Fritz LPN Allergies As of Date: 06/01/2023 (No Known Allergies) Date Reviewed: 05/30/2023 Reviewed by: Irish Mckinney RN - Fully Assessed Reason for Visit: Insurance Authorization [[id number]] Prescriptions as of 06/04/2023 - hydrocortisone (ANUSOL-HC) 25 mg suppository 1 Suppository by RECTAL route two times a day for 14 days. - lidocaine (XYLOCAINE) 5 % ointment Apply to affected area four times a day as needed. use a small amount to affected area qid prn pain - acyclovir (ZOVIRAX) 400 mg tablet Take 1 tablet by mouth two times a day. - blood sugar diagnostic test strip 1 Strip four times daily. Use as instructed - Lancets lancets 1 Each four times daily. Use as instructed - famotidine (PEPCID) 20 mg tablet Take 1 tablet by mouth two times a day. - VIT 78-[id number]-AENUJ-DHA ORAL Take by mouth. Problem List As Of Date 06/01/2023 Noted Resolved Encounter for supervision of other normal pregn*01/16/2023 History of delivery, currently pregnan*01/16/2023 History of herpes genitalis [Z86.19] 01/16/2023 History of depression [Z86.59] 01/16/2023 Family history of muscular dystrophy [Z82.0] 01/16/2023 Request for sterilization [Z30.2] 01/18/2023 Abnormal glucose complicating [O99.81*03/29/2023 History of anxiety [Z86.59] 04/11/2023 Insulin controlled gestational diabetes mellitu*04/11/2023 Encounter Status:Closed by MAYDA FRITZ on 06/04/23 Normal [facility] [place] 05-31-2023 DYLON Telephone (OBGYWM) IVY LINCOLN ([id number]) 1990 F Date Time Provider Department 05/31/23 LALY CHEW During your visit today, we recorded the following information about you: Mayda Fritz LPN 05/31/2023 1:14 PM Signed Electronic PA submitted to pt's insurance for Lidocain-Hydrocort. Will await further response from pt's insurance. CARI Arreguin Kimberly, LPN 06/01/2023 8:44 AM Signed Received denial for Lidocaine HC cream. Please advise. Mayda Fritz LPN' Laly Chew MD 06/01/2023 9:12 AM Signed Is there something else covered? rx sent so I hope this works MD Catrina Rosado Kimberly, LPN 06/01/2023 1:29 PM Signed Pt notified. Mayda Fritz LPN Allergies As of Date: 05/31/2023 (No Known Allergies) Date Reviewed: 05/30/2023 Reviewed by: Irish Mckinney, RN - Fully Assessed Reason for Visit: Insurance Authorization [[id number]] Order(s):hydrocortisone (ANUSOL-HC) 25 mg suppository1 Suppository by RECTAL route two times a day for 14 days.Disp: 28 EachRfl: 0 lidocaine (XYLOCAINE) 5 % ointmentApply to affected area four times a day as needed. use a small amount to affected area qid prn painDisp: 30 gRfl: 1 Prescriptions as of 06/01/2023 - hydrocortisone (ANUSOL-HC) 25 mg suppository 1 Suppository by RECTAL route two times a day for 14 days. - lidocaine (XYLOCAINE) 5 % ointment Apply to affected area four times a day as needed. use a small amount to affected area qid prn pain - acyclovir (ZOVIRAX) 400 mg tablet Take 1 tablet by mouth two times a day. - blood sugar diagnostic test strip 1 Strip four times daily. Use as instructed - Lancets lancets 1 Each four times daily. Use as instructed - famotidine (PEPCID) 20 mg tablet Take 1 tablet by mouth two times a day. - VIT 86-ATUE-MLKSO-DHA ORAL Take by mouth. Problem List As Of Date 05/31/2023 Noted Resolved Encounter for supervision of other normal pregn*01/16/2023 History of delivery, currently pregnan*01/16/2023 History of herpes genitalis [Z86.19] 01/16/2023 History of depression [Z86.59] 01/16/2023 Family history of muscular dystrophy [Z82.0] 01/16/2023 Request for sterilization [Z30.2] 01/18/2023 Abnormal glucose complicating [O99.81*03/29/2023 History of anxiety [Z86.59] 04/11/2023 Insulin controlled gestational diabetes mellitu*04/11/2023 Prescriptions ordered this encounter Disp Refills Start End HYDROCORTISONE ACETATE 25 MG RECTAL * 28 E* 0 06/01/2023 06/15/2023 Route: RECTAL Si Suppository by RECTAL route two times a day for 14 days. LIDOCAINE 5 % TOPICAL OINTMENT 30 g 1 06/01/2023 06/01/2023 Route: TOPICAL Sig: Apply to affected area three times a day. use a small amount to affected area qid prn pain LIDOCAINE 5 % TOPICAL OINTMENT 30 g 1 06/01/2023 Route: TOPICAL Sig: Apply to affected area four times a day as needed. use a small amount to affected area qid prn pain Medications Discontinued During This Encounter Prescriptions - Lidocaine-Hydrocortison e Ac 3-0.5 % crea (Discontinued) by RECTAL route two times a day as needed. - lidocaine (XYLOCAINE) 5 % ointment (Discontinued) Apply to affected area three times a day. use a small amount to affected area qid prn pain Encounter Status:Closed by MAYDA FRITZ on 06/01/23 Normal [facility] CNOVon 05-30-2023 CNOV Office Visit (GENSWS ) IVY LINCOLN ([id number]) 1990 F Date Time Provider Department 05/30/23 2:00 PM CRYSTAL SARMIENTO During your visit today, we recorded the following information about you: Temperature Pulse Respiration Weight 98.5 degrees 112/minute 17/minute 75.5 kg JoeLuisSugarCARI real 05/30/2023 2:34 PM Signed REVIEW OF SYSTEMS: General: The patient denies fatigue, denies weight loss, denies weight gain, denies feeling hot, and denies feelings of cold. Eyes: The patient denies glaucoma, denies eye injury/surgery, wears glasses or contacts. Ear/Nose/Throat: The patient denies allergies, denies hayfever, denies ear infections, and denies bloody noses. Cardiovascular: The patient denies chest pain, denies heart disease, denies high blood pressure,denies cardiac stent, denies prior heart attack, denies irregular heart beat, denies high cholesterol, denies poor circulation, denies heart failure, other cardiac issues, denies claudication, denies cold feet, denies peripheral arterial stent. Respiratory: The patient denies tuberculosis, denies pneumonia, denies frequent cough, denies pulmonary embolism, denies shortness of breath, and denies coughing up blood. Gastrointestinal: The patient denies difficulty swallowing, denies acid reflux, denies ulcers, denies vomiting, denies jaundice/hepatitis, denies gallbladder problems, denies black or tarry stools, NOTES hemorrhoids, denies bleeding from rectum, denies diverticulitis, denies constipation, denies diarrhea, denies loss of stool control, and denies hernias. Kidney/Bladder: The patient denies kidney stones, denies urine infections, and denies bloody urine. Skin: The patient denies a history of skin cancer, denies bleeding/changing moles, and denies a history of skin rash. Neurologic: The patient denies a history of epilepsy/convulsions, denies headaches, denies head/spinal injuries, and denies stroke/TIA. Psychiatric: The patient denies psychiatric medications, denies depression, and denies voices, denies substance abuse. Endocrine: The patient denies thyroid disorders, NOTES diabetes, and denies hormonal problems. Hematologic: The patient denies a history of bruising, denies bleeding, and denies anemia, denies blood clots. Infections: The patient denies a history of measles and mumps, denies rheumatic fever, and NOTES sexually transmitted diseases. Musculoskeletal: The patient denies back pain/injury, denies back problems, denies sciatica, denies knee/foot trouble, denies arthritis, or denies gout. When was patient's last Mammogram screening? N/A Last Colonoscopy: never CARI Morris Daniel P, MD 06/11/2023 1:22 PM Signed HISTORY AND PHYSICAL Ivy [place] 1990 REFERRING PHYSICIAN: No ref. provider found CHIEF COMPLAINT: Consult and Hemorrhoids HPI: The patient is a 32 year old female with a complaint of External hemorrhoid, thrombosed (primary encounter diagnosis). Patient has been complaining of painful hemorrhoid she has been using lidocaine and hydrocortisone suppositories. This has been going on for greater than a week. She states it is slightly smaller. PAST MEDICAL HISTORY Diagnosis Date Depression/anxiety Herpes simplex virus (HSV) infection Insulin controlled gestational diabetes mellitus (GDM) in third trimester 04/11/2023 PAST SURGICAL HISTORY Procedure Laterality Date SECTION HX 2017 LAPAROSCOPIC APPENDECTOMY 04/16/2015 NEXPLANON INSERTION removed Current Outpatient Medications Medication Sig acyclovir (ZOVIRAX) 400 mg tablet Take 1 tablet by mouth two times a day. Lidocaine-Hydrocortison e Ac 3-0.5 % crea by RECTAL route two times a day as needed. famotidine (PEPCID) 20 mg tablet Take 1 tablet by mouth two times a day. VIT 77-DDXK-ORSDW-DHA ORAL Take by mouth. blood sugar diagnostic test strip 1 Strip four times daily. Use as instructed Lancets lancets 1 Each four times daily. Use as instructed No current facility-administered medications for this visit. ALLERGIES: Patient has no known allergies. PERSONAL HISTORY: Social History Tobacco Use Smoking status: Former Years: 5 Types: Cigarettes Quit date: 2015 Years since quittin.1 Smokeless tobacco: Never Vaping Use Vaping Use: Never used Substance Use Topics Alcohol use: Not Currently Drug use: Not Currently Types: Marijuana Comment: no use since October 2022 FAMILY HISTORY: FAMILY HISTORY Problem Relation Age of Onset other (gestational diabetes) Mother Thyroid Mother No Known Problems Father No Known Problems Sister No Known Problems Brother No Known Problems Brother Breast Cancer Maternal Grandmother Brain Cancer Maternal Grandmother Accidental Maternal Grandfather Heart Attack Paternal Grandmother Heart Attack Paternal Grandfather No Known (more content not included)... Normal [facility] URINE OB DIP B/Oon Glucose Ql (U) Negative Neg mg/dL [facility] Protein.monoclonal (U) [Mass/Vol] Negative Neg mg/dL [facility] Examination level ultrasound on 05-24-2023 [facility] HISTORY PHYSICALon HISTORY PHYSICAL HNO ID: [id number] Author: LALY CHEW MD Service: ? Author Type: Physician Type: H&P Filed: 05/24/2023 10:22 Note Text: Pre-Op History and Physical HPI: The patient is a 32 year old female presenting for pre-operative visit. She is scheduled for and tubal steriilization for repeat c/s and sterilization on June 15 2023. Procedure discussed along with risks, benefits and complications. Other alternatives discussed for management. Consent form signed? Yes. PAST MEDICAL HISTORY Diagnosis Date Depression/anxiety Herpes simplex virus (HSV) infection Insulin controlled gestational diabetes mellitus (GDM) in third trimester 04/11/2023 PAST SURGICAL HISTORY Procedure Laterality Date SECTION HX 2017 LAPAROSCOPIC APPENDECTOMY 04/16/2015 NEXPLANON INSERTION removed Current Outpatient Medications Medication Sig Dispense Refill blood sugar diagnostic test strip 1 Strip four times daily. Use as instructed 120 Strip 9 Lancets lancets 1 Each four times daily. Use as instructed 120 Each 9 famotidine (PEPCID) 20 mg tablet Take 1 tablet by mouth two times a day. 60 tablet 4 VIT 47-QTPR-EYLKZ-DHA ORAL Take by mouth. No current facility-administered medications for this visit. ALLERGIES: Patient has no known allergies. PERSONAL HISTORY: Social History Tobacco Use Smoking status: Former Years: 5 Types: Cigarettes Quit date: 2016 Years since quittin.1 Smokeless tobacco: Never Vaping Use Vaping Use: Never used Substance Use Topics Alcohol use: Not Currently Drug use: Not Currently Types: Marijuana Comment: no use since October 2022 FAMILY HISTORY: FAMILY HISTORY Problem Relation Age of Onset other (gestational diabetes) Mother Thyroid Mother No Known Problems Father No Known Problems Sister No Known Problems Brother No Known Problems Brother Breast Cancer Maternal Grandmother Brain Cancer Maternal Grandmother Accidental Maternal Grandfather Heart Attack Paternal Grandmother Heart Attack Paternal Grandfather No Known Problems Son No Known Problems Daughter REVIEW OF SYMPTOMS: GENERAL: denies fevers or chills ENDOCRINOLOGY: has not been on steroids Cardiology : denies palpitations or chest pain Respiratory: denies SOB or cough Hematology: denies history of prolonged bleeding or easy bruising or VTE Allergy: Denies history of personal or family history of allergy to anesthesia PHYSICAL EXAMINATION: VITALS: Blood pressure 132/72, weight 168 lb (76.2 kg), last menstrual period 09/08/2022. GENERAL: The patient is well nourished, well hydrated in no acute distress. , The patient is oriented to time, place, and person. NECK: Supple. No lynphadenopathy, normal thyroid, no thyromegaly. LUNGS: Clear to auscultation bilaterally. no wheezes, rhonchi or rales HEART: Regular rate and rhythm, Normal heart sounds, and No murmurs or gallops abd- soft, nontender, gravid, appopriate for gestational age IMPRESSION: Estimated Date of Delivery: 06/19/23 PLAN: The risks/benefits/alternat luann and personal involved for the planned delivery and tubal sterilization were reviewed with the patient. Her questions were answered to her satisfaction and she desires to proceed. Consent was signed. I reviewed with her postop instructions and expectations. I have reviewed and updated past medical and surgical history, medications and allergies Laly Chew M.D. Normal [facility] ROUTINE, GROUP B ST REP PCRon 05-24-2023 ROUTINE, GROUP B STREP PCR GROUP B STREP PCR: Negative for Group B Streptococcus by PCR. Normal [facility] Comment on above: Performed By: #### G BPCR ####[facility] LABCLIA [id number] [place] [address] [place] URINE OB DIP B/Oon 02-08-202 4 Glucose Ql (U) Negative Neg mg/dL [facility] Protein.monoclonal (U) [Mass/Vol] Negative Neg mg/dL [facility] CNNURSEon 05-02-2023 CNNURSE Nurse Visit (ENDIMT) IVY LINCOLN ([id number]) 1990 F Date Time Provider Department 05/02/23 9:00 AM COLLETTE TRONCOSO During your visit today, we recorded the following information about you: Collette Troncoso, RN 05/02/2023 9:31 AM Signed DIABETES SELF-MANAGEMENT EDUCATION AND SUPPORT Location: [place] Type of visit: Virtual (with video) individual I have communicated my name and active licensure. The patient's identity and physical location were verified at the time of this visit. Either the patient or their legal containers sales representative has been informed of the risks and benefits of -- and alternatives to -- treatment through a remote evaluation and consents to proceed with the evaluation remotely. Types of DSMES: Initial/Comprehensive (add to or update ADA spreadsheet) PATIENT'S MAIN CONCERN TODAY: GDM diagnosis Support person present for education today: none Cognitive ability: Alert and oriented Motivation to learn: Interested Learning barriers identified by educator: none Method of instruction: written, verbal, and demonstration INTERVENTIONS/TOPICS COVERED: reports she is checking and the numbers have been between 100-140 1 hr post meal at this time -Diabetes Pathophysiology: gestational diabetes basics -Monitoring: BG targets and rationale for HGM -Healthy Eating: foods with carbs and reading food labels -Medications: reviewed insulin - 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 No What are you hoping to gain from this visit? asked/not answered In your words, what is gestational diabetes? Sugar was high when they did the test What concerns you about having gestational diabetes? asked/not answered Diabetes History: Type of Diabetes: Gestational ( diabetes in ) How far along is your ? 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 never How often does someone help you read your pill bottles? never How often does someone have to help you take care of your diabetes? never Major stressors:asked/not answered How do you manage stress? asked/not answered Do any of the following things get in the way of managing your diabetes? No self-identified issues Health History: Do you use tobacco? No Do you use alcohol? No In the past 12 months have you had any: Hospital Admissions: No ER Visits: No Primary Care Visits: Asked/not answered What are your general feelings about you overall health? Good Medical Issues/Complications: To whom are you reporting your blood sugar levels? OB PAST MEDICAL HISTORY Diagnosis Date Depression/anxiety Herpes simplex virus (HSV) infection Insulin controlled gestational diabetes mellitus (GDM) in third trimester 04/11/2023 Most recent A1C No results found for: HBA1C Physical Activity: Do you do a regular exercise? Asked/not answered Sleep: Do you get at least 7 hrs of sleep most nights? yes Current Outpatient Medications Medication Sig blood sugar diagnostic test strip 1 Strip four times daily. Use as instructed Lancets lancets 1 Each four times daily. Use as instructed famotidine (PEPCID) 20 mg tablet Take 1 tablet by mouth two times a day. VIT 53-BDWI-CXJWV-DHA ORAL Take by mouth. No current facility-administered medications for this visit. Injections Technique: Do you take insulin or a medication you inject for your diabetes? No Blood Sugar Monitoring: Do you have a blood sugar monitor? Yes; How often do you check? 4x per day When you check? Before breakfast and 1 hr post meals. Do you log your blood sugars? Yes. Where do you throw away your lancets? Not addressed EDUCATION HANDOUTS: Reviewed how to download a copy of thee GDM book LEARNING RESPONSE: Diabetes pathophysiology: Demonstrated understanding/competenc y today or at previous visit Healthy eating: Demonstrated understanding/competenc y today or at previous visit Being active: Demonstrated understanding/competenc y today or at previous visit Taking medications: Demonstrated understanding/competenc y today or at previous visit Monitoring glucose: Demonstrated understanding/competenc y today or at previous visit Acute complications: Demonstrated understanding/competenc y today or at previous visit Chronic complications: Not ass (more content not included)... Normal [facility] SHARANon 04-17-2023 CNPN Telephone (OBGYWM) IVY LINCOLN ([id number]) 1990 F Date Time Provider Department 04/17/23 LALY HCEW OBGYWJose During your visit today, we recorded the following information about you: Karlie Prieto RN 04/17/2023 8:43 AM Signed Received breast pump RX from [facility] [employer] [facility] [employer] To RR to sign. Irlanda Hawley RN 04/17/2023 10:23 AM Signed Rx signed and faxed. Irlanda Hawley RN Allergies As of Date: 04/17/2023 (No Known Allergies) Date Reviewed: 04/11/2023 Reviewed by: Betsy Thomas APRN.CNM - Fully Assessed Reason for Visit: Breast Pump [Other] Prescriptions as of 04/17/2023 - blood sugar diagnostic test strip 1 Strip four times daily. Use as instructed - Lancets lancets 1 Each four times daily. Use as instructed - famotidine (PEPCID) 20 mg tablet Take 1 tablet by mouth two times a day. - VIT 55-DNFW-FSGCI-DHA ORAL Take by mouth. Problem List As Of Date 04/17/2023 Noted Resolved Encounter for supervision of other normal pregn*01/16/2023 History of delivery, currently pregnan*01/16/2023 History of herpes genitalis [Z86.19] 01/16/2023 History of depression [Z86.59] 01/16/2023 Family history of muscular dystrophy [Z82.0] 01/16/2023 Request for sterilization [Z30.2] 01/18/2023 Abnormal glucose complicating [O99.81*03/29/2023 History of anxiety [Z86.59] 04/11/2023 Insulin controlled gestational diabetes mellsandie*04/11/2023 Encounter Status:Closed by IRLANDA HAWLEY on 04/17/23 [facility] 04-11-2023 CNPN Refill (OBGYWM) IVY LINCOLN ([id number]) 1990 F Date Time Provider Department 04/11/23 LALY CHEW During your visit today, we recorded the following information about you: Karlie Prieto RN 04/11/2023 2:42 PM Signed ----- Message from Laly Chew MD sent at 04/11/2023 2:36 PM EST ----- Patient did not pass 3 hr GTT. She has a diagnosis of gestational diabetes. Needs supplies and teaching please. Karlie Prieto RN 04/11/2023 2:46 PM Signed Please file orders. We will then contact patient and assist with scheduling. Thank you. LILI Cobb Courtney, APRN.CNM 04/11/2023 4:37 PM Signed Orders signed. MYRIAM Alexis Jennifer, RN 04/11/2023 5:08 PM Signed Patient notified. Reviewed testing blood sugars fasting and 1 hour post prandial and to keep a log. 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 PSS- Can you please call patient and assist with scheduling with news specialist and Randy for diabetes education. Patient is going to set up her [employer] for virtual visits. Thank you! Karlie Prieto RN Allergies As of Date: 04/11/2023 (No Known Allergies) Date Reviewed: 04/11/2023 Reviewed by: Betsy Thomas APRN.CNM - Fully Assessed Reason for Visit: Results [95] Primary Visit Diagnosis:Abnormal maternal glucose tolerance, antepartum [O99.810] Order(s):Blood-Glucose Meter1 Each as directed for 1 day.Disp: 1 EachRfl: 0 blood sugar diagnostic test strip1 Strip four times daily. Use as instructedDisp: 120 StripRfl: 9 Lancets lancets1 Each four times daily. Use as instructedDisp: 120 EachRfl: 9 CONSULT TO NUTRITION THERAPY [9020] Order #: [id number]: 4 FUTURE CONSULT TO DIABETES EDUCATION DSME/MNT [2799815] Order #: [id number]: 4 FUTURE Prescriptions as of 04/12/2023 - Blood-Glucose Meter 1 Each as directed for 1 day. - blood sugar diagnostic test strip 1 Strip four times daily. Use as instructed - Lancets lancets 1 Each four times daily. Use as instructed - famotidine (PEPCID) 20 mg tablet Take 1 tablet by mouth two times a day. - VIT 92-NMLX-HXOUS-DHA ORAL Take by mouth. Problem List As Of Date 04/11/2023 Noted Resolved Encounter for supervision of other normal pregn*01/16/2023 History of delivery, currently pregnan*01/16/2023 History of herpes genitalis [Z86.19] 01/16/2023 History of depression [Z86.59] 01/16/2023 Family history of muscular dystrophy [Z82.0] 01/16/2023 Request for sterilization [Z30.2] 01/18/2023 Abnormal glucose complicating [O99.81*03/29/2023 History of anxiety [Z86.59] 04/11/2023 Insulin controlled gestational diabetes mellitu*04/11/2023 Prescriptions ordered this encounter Disp Refills Start End BLOOD-GLUCOSE METER 1 Ea* 0 04/11/2023 04/12/2023 Cmt: Per Insurance Coverage Route: OTHER Si Each as directed for 1 day. BLOOD SUGAR DIAGNOSTIC STRIPS 120 * 9 04/11/2023 Cmt: Per Insurance Coverage Route: OTHER Si Strip four times daily. Use as instructed LANCETS 120 * 9 04/11/2023 Cmt: Per insurance coverage Route: OTHER Si Each four times daily. Use as instructed Encounter Status:Closed by BETSY THOMAS on 04/11/23 Normal [facility] GLUCOSE GEST, 1 HOURon 04-11 Glucose 1 Hr post Unsp challenge [Mass/Vol] 214 mg/dL High 74-179 [facility] Comment on above: Order Comment: Chuy fernando Type: BLOOD SPECIMEN Ordering Facility: [facility] Address: [address] [place] [place] [address] Result Comment: [facility] Congress of Obstetricians and Gynecologists (Keshia/Esha) guidelines state gestational diabetes mellitus is present when 2 or more of the plasma glucose concentrations meet or exceed the following levels: fastin mg/dl, 1 hr: 180 mg/dl, 2 hr: 155 mg/dl, and 3 hr: 140 mg/dl. Performed By: #### G TGST1 #### [facility] [id number] [address] [place] [address] [place] GLUCOSE GEST, 2 HOURon 04-11 Glucose 2 Hr post Unsp challenge [Mass/Vol] 234 mg/dL High 74-154 [facility] Comment on above: Order Comment: Chuy fernando Type: BLOOD SPECIMENOrdering Facility: [facility] Address: [address] [place] [address] Result Comment: [facility] Congress of Obstetricians and Gynecologists (Keshia/Esha) guidelines state gestational diabetes mellitus is present when 2 or more of the plasma glucose concentrations meet or exceed the following levels: fastin mg/dl, 1 hr: 180 mg/dl, 2 hr: 155 mg/dl, and 3 hr: 140 mg/dl. Performed By: #### G TGST2 ####[facility] H[facility]IT[facility] [id number] [place] [address] [place] GLUCOSE GEST, 3 HOURon 04-11 Glucose 3 Hr post Unsp challenge [Mass/Vol] 136 mg/dL Normal 74-139 [facility] Comment on above: Order Comment: Chuy fernando Type: BLOOD SPECIMEN Ordering Facility: [facility] Address: [address] [place] [address] Result Comment: [facility] Congress of Obstetricians and Gynecologists ([facility] [place]) guidelines state gestational diabetes mellitus is present when 2 or more of the plasma glucose concentrations meet or exceed the following levels: fastin mg/dl, 1 hr: 180 mg/dl, 2 hr: 155 mg/dl, and 3 hr: 140 mg/dl. Performed By: #### G TGST3 #### [facility] [id number] [address] [place] [address] [place] GLUCOSE GEST, FASTINGon 03-17 Glucose post fast [Mass/Vol] 98 mg/dL High 74-94 [facility] Comment on above: Order Comment: Chuy fernando Type: BLOOD SPECIMEN Ordering Facility: [facility] Address: [address] [place] [address] Result Comment: [facility] Congress of Obstetricians and Gynecologists ([facility]) guidelines state gestational diabetes mellitus is present when 2 or more of the plasma glucose concentrations meet or exceed the following levels: fastin mg/dl, 1 hr: 180 mg/dl, 2 hr: 155 mg/dl, and 3 hr: 140 mg/dl. Performed By: #### G TGST1 #### [facility] [id number] [address] [place] [address] OF [facility] ([id number]) 1990 F Date Time Provider Department 03/29/23 LALY CHEW OBGYWM During your visit today, we recorded the following information about you: AlejandroleahMamie LPN 03/29/2023 10:07 AM Signed ----- Message from Laly Chew MD sent at 03/29/2023 9:54 AM EST ----- Abnormal 1 hr. Needs 3hr gtt. Order entered. Other labs ok. Notify paitent. MD Valentín Hanna Annalee LPN 03/29/2023 10:10 AM Signed Left message to call office Lucy Wilkins RN 03/29/2023 10:32 AM Signed Patient notified and scheduled lab appointment. LUCY WILKINS RN Allergies As of Date: 03/29/2023 (No Known Allergies) Date Reviewed: 03/27/2023 Reviewed by: Patience Villarreal MD - Fully Assessed Reason for Visit: Results [95] Prescriptions as of 03/29/2023 - famotidine (PEPCID) 20 mg tablet Take 1 tablet by mouth two times a day. - VIT 93-OJXN-BMDZU-DHA ORAL Take by mouth. Problem List As Of Date 03/29/2023 Noted Resolved Encounter for supervision of other normal pregn*01/16/2023 History of delivery, currently pregnan*01/16/2023 History of herpes genitalis [Z86.19] 01/16/2023 History of depression [Z86.59] 01/16/2023 Family history of muscular dystrophy [Z82.0] 01/16/2023 Request for sterilization [Z30.2] 01/18/2023 Abnormal glucose complicating [O99.81*03/29/2023 Encounter Status:Closed by LUCY WILKINS on 03/29/23 Normal [facility] CNCOon 03-28-2023 CNCO Letter Text Normal [facility] CBC W Auto Differential pane l (Bld)on 03-27-2023 Basophils (Bld) [#/Vol] 0.03 10*3/uL Normal <0.11 [facility] Comment on above: Order Comment: Speci men Type: BLOOD SPECIMEN Ordering Facility: [facility] Address: [address] [place] [address] Performed By: #### G TGST1 #### [facility] CLIA [id number] [address] [place] [address] [place] Basophils/100 WBC (Bld) 0.3 % Normal [facility] Comment on above: Order Comment: Speci men Type: BLOOD SPECIMEN Ordering Facility: [facility] Address: [address] [place] [address] Performed By: #### G TGST1 #### [facility] CLIA [id number] [address] [place] [address] [place] Differential cell count method Nom (Bld) Auto Normal [facility] Comment on above: Order Comment: Speci men Type: BLOOD SPECIMEN Ordering Facility: [facility] Address: [address] [place] [address] Performed By: #### G TGST1 #### [facility] CLIA [id number] [address] [place] [address] [place] Eosinophils (Bld) [#/Vol] 0.07 10*3/uL Normal <0.46 [facility] Comment on above: Order Comment: Speci men Type: BLOOD SPECIMEN Ordering Facility: [facility] Address: [address] [place] [address] Performed By: #### G TGST1 #### [facility] CLIA [id number] [address] [place] [address] [place] Eosinophils/100 WBC (Bld) 0.7 % Normal [facility] Comment on above: Order Comment: Speci men Type: BLOOD SPECIMEN Ordering Facility: [facility] Address: [address] [place] [address] Performed By: #### G TGST1 #### [facility] [id number] [address] [place] [address] [place] Erythrocyte distribution width (RBC) [Ratio] 12.4 % Normal 11.5-15.0 [facility] Comment on above: Order Comment: Speci men Type: BLOOD SPECIMEN Ordering Facility: [facility] Address: [address] [place] [address] Performed By: #### G [email or web address] #### [facility] CLIA [id number] [address] [place] [address] [place] Hematocrit (Bld) [Volume fraction] 33.6 % Low 36.0-46.0 [facility] Comment on above: Order Comment: Speci men Type: BLOOD SPECIMEN Ordering Facility: [facility] Address: [address] [place] [address] Performed By: #### G [email or web address] #### [facility] CLIA [id number] [address] [place] [address] [place] Hemoglobin (Bld) [Mass/Vol] 11.5 g/dL Normal 11.5-15.5 [facility] Comment on above: Order Comment: Speci men Type: BLOOD SPECIMEN Ordering Facility: [facility] Address: [address] [place] [address] Performed By: #### G [email or web address] #### [id number] [address] [place] [address] [place] Immature granulocytes (Bld) [#/Vol] 0.04 10*3/uL Normal <0.10 [facility] Comment on above: Order Comment: Speci men Type: BLOOD SPECIMEN Ordering Facility: [facility] Address: [address] [place] [address] Performed By: #### G [email or web address] #### [facility] CLIA [id number] [address] [place] [address] [place] Immature granulocytes/100 WBC (Bld) 0.4 % Normal [facility] Comment on above: Order Comment: Speci men Type: BLOOD SPECIMEN Ordering Facility: [facility] Address: [address] [place] [address] Performed By: #### G [email or web address] #### [facility] CLIA [id number] [address] [place] [address] [place] Lymphocytes (Bld) [#/Vol] 1.17 10*3/uL Normal 1.00-4.00 [facility] Comment on above: Order Comment: Speci men Type: BLOOD SPECIMEN Ordering Facility: [facility] Address: [address] [place] [address] Performed By: #### G [email or web address] #### [facility] CLIA [id number] [address] [place] [address] [place] Lymphocytes/100 WBC (Bld) 12.5 % Normal [facility] Comment on above: Order Comment: Speci men Type: BLOOD SPECIMEN Ordering Facility: [facility] Address: [address] [place] [address] Performed By: #### G [email or web address] #### [facility] CLIA [id number] [address] [place] [address] [place] MCH (RBC) [Entitic mass] 33.0 pg Normal 26.0-34.0 [facility] Comment on above: Order Comment: Speci men Type: BLOOD SPECIMEN Ordering Facility: [facility] Address: [address] [place] [place] [address] Performed By: #### G [email or web address] #### [facility] [id number] [address] [place] [address] [place] MCHC (RBC) [Mass/Vol] 34.2 g/dL Normal 30.5-36.0 [facility] Comment on above: Order Comment: Speci men Type: BLOOD SPECIMEN Ordering Facility: [facility] Address: [address] [place] [place] [address] Performed By: #### G [email or web address] #### [facility] [id number] [address] [place] [address] [place] MCV (RBC) [Entitic vol] 96.3 fL Normal 80.0-100.0 [facility] Comment on above: Order Comment: Speci men Type: BLOOD SPECIMEN Ordering Facility: [facility] Address: [address] [place] [address] Performed By: #### G [email or web address] #### [facility] CLIA [id number] [address] [place] [address] [place] Monocytes (Bld) [#/Vol] 0.59 10*3/uL Normal <0.87 [facility] Comment on above: Order Comment: Speci men Type: BLOOD SPECIMEN Ordering Facility: [facility] Address: [address] [place] [address] Performed By: #### G [email or web address] #### [facility] CLIA [id number] [address] [place] [address] [place] Monocytes/100 WBC (Bld) 6.3 % Normal [facility] Comment on above: Order Comment: Speci men Type: BLOOD SPECIMEN Ordering Facility: [facility] Address: [address] [place] [address] Performed By: #### G [email or web address] #### [facility] CLIA [id number] [address] [place] [address] [place] Neutrophils (Bld) [#/Vol] 7.49 10*3/uL Normal 1.45-7.50 [facility] Comment on above: Order Comment: Speci men Type: BLOOD SPECIMEN Ordering Facility: [facility] Address: [address] [place] [address] Performed By: #### G [email or web address] #### [facility] CLIA [id number] [address] [place] [address] [place] Neutrophils/100 WBC (Bld) 79.8 % Normal [facility] Comment on above: Order Comment: Speci men Type: BLOOD SPECIMEN Ordering Facility: [facility] Address: [address] [place] [address] Performed By: #### G [email or web address] #### [facility] CLIA [id number] [address] [place] [address] [place] Nucleated RBC (Bld) [#/Vol] 10*3/uL Normal <0.01 [facility] Comment on above: Order Comment: Speci men Type: BLOOD SPECIMEN Ordering Facility: [facility] Address: [address] [place] [address] Performed By: #### G [email or web address] #### [facility] CLIA [id number] [address] [place] [address] [place] Nucleated RBC/100 WBC (Bld) [Ratio] 0.0 /100 WBC Normal [facility] Comment on above: Order Comment: Speci men Type: BLOOD SPECIMEN Ordering Facility: [facility] Address: [address] [place] [address] Performed By: #### G [email or web address] #### [facility] CLIA [id number] [address] [place] [address] [place] Platelet mean volume (Bld) [Entitic vol] 10.3 fL Normal 9.0-12.7 [facility] Comment on above: Order Comment: Speci men Type: BLOOD SPECIMEN Ordering Facility: [facility] Address: [address] [place] [address] Performed By: #### G [email or web address] #### [facility] CLIA [id number] [address] [place] [address] [place] Platelets (Bld) [#/Vol] 202 10*3/uL Normal 150-400 [facility] Comment on above: Order Comment: Speci men Type: BLOOD SPECIMEN Ordering Facility: [facility] Address: [address] [place] [address] Performed By: #### G [email or web address] #### [facility] CLIA [id number] [address] [place] [address] [place] RBC (Bld) [#/Vol] 3.49 10*6/uL Low 3.90-5.20 [facility] Comment on above: Order Comment: Speci men Type: BLOOD SPECIMEN Ordering Facility: [facility] Address: [address] [place] [address] Performed By: #### G [email or web address] #### [facility] CLIA [id number] [address] [place] [address] [place] WBC (Bld) [#/Vol] 9.39 10*3/uL Normal 3.70-11.00 [facility] Comment on above: Order Comment: Speci men Type: BLOOD SPECIMEN Ordering Facility: [facility] Address: [address] [place] [address] Performed By: #### G [email or web address] #### [id number] [address] [place] [address] [place] GEST GLUC SCREEN, 1-HR, 50 G M, NON-FASTINGon 03-27-2023 Glucose [Mass/Vol] 144 mg/dL High 74-134 [facility] Comment on above: Order Comment: Speci men Type: BLOOD SPECIMEN Ordering Facility: [facility] Address: [address] [place] [address] Result Comment: [facility] Congress of Obstetricians and Gynecologists (Keshia/Esha) guidelines state a gestational diabetes mellitus positive screen is made, in women not previously diagnosed with overt diabetes, when the 1 hr plasma glucose level is equal to or above 140 mg/dL. [facility] [employer] Instrument Repair Technician and [facility] [place] recommends a 135 mg/dL cutoff. Performed By: #### G [email or web address] #### [facility] [id number] [address] [place] [address] [place] Reagin and Treponema pallidu m IgG and IgM [Interp]on 03-27-2023 T. pallidum IgG+IgM IA Ql (S) Non-Reactive Normal Nonreactive [facility] Comment on above: Order Comment: Speci men Type: BLOOD SPECIMEN Ordering Facility: [facility] Address: [address] [place] [address] Performed By: #### G [email or web address] #### [facility] [id number] [address] [place] [address] [place] Reagin+T pallidum IgG+IgM Se rPl-Impon 03-27-2023 Reagin and Treponema pallidum IgG and IgM [Interp] Cannot exclude recent Treponemal infection if specimen collected within 7-10 days after appearance of suspect lesions or 2-3 weeks after an exposure. Clinical correlation is required. Normal [facility] Comment on above: Order Comment: Speci men Type: BLOOD SPECIMEN Ordering Facility: [facility] Address: [address] [place] [address] Performed By: #### G [email or web address] #### [facility] [id number] [address] [place] [address] [place] URINE OB DIP B/Oon 3 Glucose Ql (U) Negative Neg mg/dL [facility] Protein.monoclonal (U) [Mass/Vol] Negative Neg mg/dL [facility] CNCOon 02-28-2023 CNCO Letter Text Normal [facility] URINE OB DIP B/Oon 3 Glucose Ql (U) Negative Neg mg/dL [facility] Protein.monoclonal (U) [Mass/Vol] Negative Neg mg/dL [facility] OBSTETRIC ULTRASOUND WHIon 1 [facility] C. trachomatis+N. gonorrhoea e DNA BRAN+probe Ql (Unsp spec)on 01-18-2023 C. trachomatis rRNA BRAN+probe Ql (Unsp spec) Negative Normal Negative for Chlamydia trachomatis by amplificaton [facility] Comment on above: Order Comment: Speci men Type: BLOOD SPECIMEN Ordering Facility: [facility] Address: [address] [place] [address] Performed By: #### G [email or web address] #### [facility] [id number] [address] [place] [address] [place] N. gonorrhoeae rRNA BRAN+probe Ql (Unsp spec) Negative Normal Negative for Neisseria gonorrhoeae by amplification [facility] Comment on above: Order Comment: Speci men Type: BLOOD SPECIMEN Ordering Facility: [facility] Address: [place] [address] Performed By: #### G [email or web address] #### [facility] ISAIAS [id number] [address] [place] [address] [place] CNNURSEon 01-16-2023 CNNURSE Nurse Visit (OBGYWM) IVY LINCOLN ([id number]) 1990 F Date Time Provider Department 01/16/23 10:30 AM NURSE PNO[facility] WSTR OBGYWM During your visit today, we recorded the following information about you: Last Period 09/08/22 Ubaldo Pollard RN 01/16/2023 12:43 PM Signed INITIAL OB ASSESSMENT OB Provider: Ubaldo Pollard RN HPI: Ivy is a 32 year old White here to establish Obstetrical Care. Patient's last menstrual period was 09/08/2022 (approximate). from OB Dating Form. 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 # 3 - Date: None, Sex: None, Weight: None, GA: None, Delivery: None, Apgar1: None, Apgar5: None, Living: None, Comments: None Previous history: Prior : yes x 1 History of 4th degree laceration: No History of shoulder dystocia: No History of Hypertensive disorders including pre-eclampsia, chronic hypertension or gestational hypertension: No History of gestational diabetes: No Patient's Risk Screening for delivery: Have you had a prior kraft between 20w and 36w6d?: No MEDICAL/PSYCHOSOCIAL HISTORY: History of hemorrhage or bleeding concerns: No Thyroid Disease: No History of chronic hypertension: No History of pre-existing diabetes: No No results found for: ABORHD No weight on file for this encounter. History of abnormal pap: No Prior treatment for cervical dysplasia: none. History of STDs: HSV Tobacco use: No Caffeine use: Yes 2-3 cups of coffee a day Drug use: No Alcohol use: No Multivitamin with Folic acid: Yes Lutheran or heritage: No Would refuse blood transfusion if medically necessary: No Are you currently employed? 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 I don't have enough money to pay my bills: Never Within the past 12 months, have you worried that your food would run out before you had money to buy more: Never In the past 12 months, has lack of reliable transportation kept you from going to medical appointments or work, or from keeping things needed for daily living: Never In the past 12 months, have you had any concerns about having a place to live, or about the condition or quality of your housing: Never Are there any cultural or spiritual needs we should be aware of: No Depression/Anxiety Screening: admits to symptoms of depression. OB Depression and Anxiety Screening- This Encounter (since 01/15/2023) Over the past 2 weeks have you felt down, depressed, or hopeless? Negative Over the past two weeks, have you felt little interest or pleasure in doing things?? Positive - Further Testing Indicated I have been able to laugh and see the funny side of things. As much as I always could I have looked forward with enjoyment to things. As much as I ever did I have blamed myself unnecessarily when things went wrong. No, never I have been anxious or worried for no good reason. Yes, sometimes I have felt scared or panicky for no good reason. No, not at all Things have been getting on top of me. No, most of the time I have coped quite well I have been so unhappy that I have had difficulty sleeping. Not at all I have felt sad or miserable. No, not at all I have been so unhappy that I have been crying. No, never The thought of harming myself has occurred to me. Never [place] Depression Scale Total 3 Feeling nervous, anxious or on edge 1-Several days Not being able to stop or control worrying 1-Several days Anxiety Pre-Screening Total (If >/= 3 additional questions will be reviewed) 2 Genetic Screening: Partner present: No Patient verbalized knowledge of partner family health history: No Do you or your partner have any personal or family history of defects not previously discussed: No Do you have history of a complicated by anomaly, genetic condition, or demise: No ACOG Recommended Screening Screening for early gestational diabetes testing: Criteria for early testing requires elevated BMI plus one other risk factor: (more content not included)... Normal [facility] Cedrick 01-16-2023 DYLON Telephone (OBGYWM) IVY LINCOLN ([id number]) 1990 F Date Time Provider Department 01/16/23 [facility]ILLARREAL OBGYWM During your visit today, we recorded the following information about you: Ubaldo Pollard RN 01/16/2023 11:17 AM Signed Patient was seen for [facility] OB appointment today. She is 18 weeks. She last saw [facility] on November 21. She would like to get an order to schedule her anatomy ultrasound. Next available ultrasound is February 02. Patient requesting that I put a phone note in so that ultrasound could be ordered and scheduled Patience Villarreal MD 01/16/2023 12:12 PM Signed Done MD Conner Tan Jennifer RN 01/16/2023 1:52 PM Signed Anatomy scheduled for 02/02. Appointment note made to let patient know. Karlie Prieto RN Allergies As of Date: 01/16/2023 (No Known Allergies) Date Reviewed: 01/16/2023 Reviewed by: Ubaldo Pollard RN - Fully Assessed Reason for Visit: Orders [681] Primary Visit Diagnosis: with care elsewhere, antepartum [Z34.90] Order(s):OBSTETRIC ULTRASOUND [facility] [[id number]] Order #: [id number]: 1 FUTURE Prescriptions as of 01/16/2023 - VIT 25-QGXX-UNYYY-DHA ORAL Take by mouth. Problem List As Of Date 01/16/2023 Noted Resolved with care elsewhere, antepar*01/16/2023 History of delivery, currently pregnan*01/16/2023 History of herpes genitalis [Z86.19] 01/16/2023 History of depression [Z86.59] 01/16/2023 Family history of muscular dystrophy [Z82.0] 01/16/2023 Encounter Status:Closed by KARLIE PRIETO RN on [facility]Y [facility] ([id number]) 1990 F Date Time Provider Department 01/01/23 RACHEL FENG During your visit today, we recorded the following information about you: Ubaldo Pollard RN 01/01/2023 11:47 AM Signed I called patient to let her know that we have not received her records from [facility]. She states her last visit was December 26. She will call them to have them transferred here Karlie Prieto RN 01/04/2023 3:39 PM Signed Received records from [facility]. Placed in [facility] mailbox. Ubaldo Godinez RN, RN 01/11/2023 1:18 PM Signed Records reviewed and sent to be scanned Allergies As of Date: 01/01/2023 (Not on File) Date Reviewed: Never Reviewed Reason for Visit: transfer of care [Other] Problem List As Of Date: 01/01/2023 (None) Encounter Status:Closed by UBALDO POLLARD RN on 01/01/23 Normal [facility] Absolute lymphocyte countOrd ered By: Dario Murphy on 11-21-2022 Lymphocytes Auto (Unsp spec) [#/Vol] 1.32 10*3/uL 0.83-4.51 [facility] Acute hepatitis 2000 panel ( S)on 11-21-2022 HCV Ab Ql (S) Non-Reactive [facility] Automated blood hematocrit ( percentage)Ordered By: Dario Murphy on 11-21-2022 Hematocrit (Bld) [Volume fraction] 36.8 % 36.0 - 46.0 % [facility] Basophil percentageOrdered B y: Dario Murphy on 11-21-2022 Basophils/100 WBC (Bld) 0.4 % 0-1 [facility] Eosinophils/100 WBC (Bld) 0.7 % 0-5 [facility] Neutrophils (Bld) [#/Vol] 6.3 10*3/uL 2.0-7.7 [facility] Neutrophils/100 WBC (Bld) 75.8 % 47-70 [facility] WBC (Bld) [#/Vol] 8.2 10*3/uL 4.4-11.0 [facility] Blood erythrocytes count (nu mber/volume)Ordered By: Dario Murphy on 11-21-2022 RBC (Bld) [#/Vol] 3.79 10*6/uL 4.2-5.4 [facility] Blood hemoglobin measurement (mass/volume)Ordered By: Dario Murphy on 11-21-2022 Hemoglobin (Bld) [Mass/Vol] 12.3 g/dL 12.0-15.0 [facility] Blood lymphocytes/100 leukoc ytesOrdered By: Dario Murphy on 11-21-2022 Lymphocytes/100 WBC (Bld) 16.0 % 19-41 [facility] Blood monocytes/100 leukocyt esOrdered By: Dario Murphy on 11-21-2022 Monocytes/100 WBC (Bld) 6.7 % 0-10 [facility] Blood platelet mean volumeOr dered By: Dario Murphy on 11-21-2022 Platelet mean volume (Bld) [Entitic vol] 10.3 fL 6.2-12.0 [facility] CBC panel Auto (Bld)on 11-21 Hemoglobin (Bld) [Mass/Vol] 13.1 g/dL 11.5 - 15.5 g/dL [facility] Cervical or vagninal specime n microscopic examination by cytology stain (reported asOrdered By: Dario Murphy on 11-21-2022 Cytology report Cyto stain Doc (Cvx/Vag) Comment . [facility] Comment on above: The Pap smear is a s creening test designed to aid in thedetection of premalignant and malignant conditions of theuterine cervix. It is not a diagnostic procedure andshould not be used as the sole means of detecting cervicalcancer. Both false-positive and false-negative reports dooccur. Culture, urineOrdered By: Aung Murphy on 11-21-2022 Bacteria identified Cx Nom (U) Culture exhibits no growth. [facility] Detection in cervical specim en of any of human papilloma virus (HPV) 16, 18, 31, 33,Ordered By: Dario Murphy on 11-21-2022 HPV 16+18+31+33+35+39+45+ 51+52+56+58+59+66+68 DNA Probe+sig amp Ql (Cvx) Negative Negative [facility] Comment on above: This nucleic acid am plification test detects fourteen high- risk HPV types (16,18,31,33,35,39,45,51,52,56,58,59,66,68)without differentiation. Determination of erythrocyte mean corpuscular volume (MCV)Ordered By: Dario Murphy on 11-21-2022 MCV (RBC) [Entitic vol] 97.1 fL 81-99 [facility] HEP B SURF AG SCRNon 023 HBV surface Ag Ql (S) Non-Reactive [facility] HIV 1 and HIV-2 antibody ass ay with HIV-1 p24 antigen detectionOrdered By: Dario Murphy on 11-21-2022 HIV 1+2 Ab+HIV1 p24 Ag IA Ql Non-Reactive [facility] Laboratory - CytologyOrdered By: Dario Murphy on 11-21-2022 Line Out Worker Cyto stain Nom (Cvx/Vag) [ID] Comment . [facility] Comment on above: Antony Rivera totechnologist Laboratory - Hematology and Cell countsOrdered By: Dario Murphy on 11-21-2022 Erythrocyte distribution width (RBC) [Entitic vol] 42.6 fL 35.1-43.9 [facility] Erythrocyte distribution width (RBC) [Ratio] 12.0 % 11.6-14.6 [facility] Immature granulocytes/100 WBC (Bld) 0.400 % 0.0-0.9 [facility] Comment on above: IG% - Immature Granu locytes (promyelocytes, myelocytes and metamyelocytes) > 1% indicates that a LEFT SHIFT is Present. MCH (RBC) [Entitic mass] 32.5 pg 27.0-32.0 [facility] Nucleated RBC/100 WBC (Bld) [Ratio] 0 % 0-5 [facility] Laboratory - Miscellaneous t estsOrdered By: Dario Murphy on 11-21-2022 Service comment (Unsp spec) [Interp] Comment . [facility] Comment on above: This liquid based Th inPrep(R) pap test was screened withthe use of an image guided system. Service comment (Unsp spec) [Interp] . . [facility] Liquid-based cerv Pap + CT/G C by BRAN w reflex to high-risk HPV for ASCUSOrdered By: Dario Murphy on 11-21-2022 Cytology report Cyto stain.thin prep Doc (Cvx/Vag) Comment . [facility] Comment on above: Criteria not met, HP V Genotype not performed.Performed at: - [facility] [id number] Director: Opal Schmidt MD, Phone: [phone] at: = - [facility]Brett culpStone[place], [place] [id number] Director: Opal Schmidt MD, Phone: [phone] MCHC Auto (RBC) [Mass/Vol]Or dered By: Dario Murphy on 11-21-2022 MCHC (RBC) [Mass/Vol] 33.4 g/dL 32-[address] [facility] No Panel InformationOrdered By: Dario Murphy on 11-21-2022 Hepatitis B Surface Antigen Non-Reactive Nonreactive [facility] Hepatitis C Antibody Non-Reactive Nonreactive [facility] Comment on above: Non Reactive: < 0.8 Equivocal: >/= 0.8 to < 1.0 Reactive: >/= 1.0The CDC recommends that a reactive/equivocal HCV antibody result be followed up by the HCV Nucleic Acid Amplificationtest ([id number]) Rubella IgG Antibody Equiv Nonreactive [facility] Comment on above: Antibody Results Int erpretation of Immune Status Non Reactive Presumed Non-Immune Equivocal Equivocal Reactive Presumed Immune Pathology report final diagnosis Narrative Comment . [facility] Comment on above: NEGATIVE FOR INTRAEP ITHELIAL LESION OR MALIGNANCY. Platelets bldOrdered By: Lakhwinder Murphy on 11-21-2022 Platelets (Bld) [#/Vol] 254 10*3/uL [facility] Reagin and Treponema pallidu m IgG and IgM [Interp]on 11-21-2022 Syphilis Screen Result Non-Reactive [facility] Serum Treponema species anti body detectionOrdered By: Dario Murphy on 11-21-2022 Treponema sp Ab Ql (S) Non-Reactive [facility] Serum Varicella zoster virus IgG antibody assay by immunoassay (units/volume)Ordered By: Dario Murphy on 11-21-2022 VZV IgG IA Qn (S) 949 index Immune >165 [facility] Comment on above: Negative <135 Equivo opal 135 - 165 Positive >165A positive result generally indicates exposure to thepathogen or administration of specific immunoglobulins,but it is not indication of active infection or stageof disease.Performed at: - [address] [id number] Director: Sanju Mattson PhD, Phone: [phone] TYPE + SCREEN (EXTERNAL LAB) on 11-21-2022 ABO/RH(D) (EXTERNAL) Positive [facility] Absolute lymphocyte countOrd ered By: Dr. Troncoso on 09-15-2022 Lymphocytes Auto (Unsp spec) [#/Vol] 1.31 10*3/uL 0.83-4.51 [facility] Basophil percentageOrdered B y: Dr. Troncoso on 09-15-2022 Basophils/100 WBC (Bld) 0.7 % 0-1 [facility] Bilirubin [Mass/Vol] 1.20 mg/dL 0.20-1.00 [facility] Comment on above: For patients on eltr ombopag therapy, use of Dimension [place] TBIL is not recommended. Chloride [Moles/Vol] 107 mmol/L 98-107 [facility] Eosinophils/100 WBC (Bld) 2.3 % 0-5 [facility] Glucose [Mass/Vol] 86 mg/dL 74-106 [facility] Neutrophils (Bld) [#/Vol] 4.2 10*3/uL 2.0-7.7 [facility] Neutrophils/100 WBC (Bld) 68.7 % 47-70 [facility] Potassium [Moles/Vol] 4.1 mmol/L 3.5-5.[address] [facility] Protein [Mass/Vol] 7.5 g/dL 6.4-8.2 [facility] Sodium [Moles/Vol] 140 mmol/L 136-145 [facility] WBC (Bld) [#/Vol] 6.1 10*3/uL 4.4-11.0 [facility] Blood erythrocytes count (nu mber/volume)Ordered By: Dr. Troncoso on 09-15-2022 RBC (Bld) [#/Vol] 4.03 10*6/uL 4.2-5.4 [facility] Blood hemoglobin measurement (mass/volume)Ordered By: Dr. Troncoso on 09-15-2022 Hemoglobin (Bld) [Mass/Vol] 13.1 g/dL 12.0-15.0 [facility] Blood lymphocytes/100 leukoc ytesOrdered By: Dr. Troncoso on 09-15-2022 Lymphocytes/100 WBC (Bld) 21.3 % 19-41 [facility] Blood monocytes/100 leukocyt esOrdered By: Dr. Troncoso on 09-15-2022 Monocytes/100 WBC (Bld) 6.8 % 0-10 [facility] Blood platelet mean volumeOr dered By: Dr. Troncoso on 09-15-2022 Platelet mean volume (Bld) [Entitic vol] 11.0 fL 6.2-12.0 [facility] Determination of erythrocyte mean corpuscular volume (MCV)Ordered By: Dr. Troncoso on 09-15-2022 MCV (RBC) [Entitic vol] 98.5 fL 81-99 [facility] Hematocrit Auto (Bld) [Volum e fraction]Ordered By: Dr. Troncoso on 09-15-2022 Hematocrit (Bld) [Volume fraction] 39.7 % 37-47 [facility] Laboratory - Chemistry and C hemistry - challengeOrdered By: Dr. Troncoso on 09-15-2022 ALP [Catalytic activity/Vol] 50 U/L 45-117 [facility] ALT [Catalytic activity/Vol] 19 U/L 13-56 [facility] CO2 [Moles/Vol] 29.0 mmol/L 21.0-32.0 [facility] Globulin (S) [Mass/Vol] 3.6 g/dL 2.2-4.2 [facility] Urea nitrogen/Creatinine [Mass ratio] 12.2 mg/mg 10-20 [facility] Laboratory - Hematology and Cell countsOrdered By: Dr. Troncoso on 09-15-2022 Erythrocyte distribution width (RBC) [Entitic vol] 44.6 fL 35.1-43.9 [facility] Erythrocyte distribution width (RBC) [Ratio] 12.3 % 11.6-14.6 [facility] Immature granulocytes/100 WBC (Bld) 0.200 % 0.0-0.9 [facility] Comment on above: IG% - Immature Granu locytes (promyelocytes, myelocytes and metamyelocytes) > 1% indicates that a LEFT SHIFT is Present. MCH (RBC) [Entitic mass] 32.5 pg 27.0-32.0 [facility] Nucleated RBC/100 WBC (Bld) [Ratio] 0 % 0-5 [facility] MCHC Auto (RBC) [Mass/Vol]Or dered By: Dr. Troncoso on 09-15-2022 MCHC (RBC) [Mass/Vol] 33.0 g/dL 32-[address] [facility] No Panel InformationOrdered By: Dr. Troncoso on 09-15-2022 Estimated GFR (MDRD) Amer 103 mL/min >60 [facility] Comment on above: GFR Calc Estimated GFR (MDRD) Non-Af Amer 85 mL/min >60 [facility] Comment on above: Non- GFR Calc Thyroid Stimulating Hormone (TSH) 0.97 uIU/mL 0.358-3.74 [facility] Platelets bldOrdered By: Dr. Troncoso on 09-15-2022 Platelets (Bld) [#/Vol] 260 10*3/uL 150-450 [facility] Serum or plasma albumin spencer urement (mass/volume)Ordered By: Dr. Troncoso on 09-15-2022 Albumin [Mass/Vol] 3.9 g/dL 3.2-5.0 [facility] Serum or plasma albumin/glob ulin mass ratioOrdered By: Dr. Troncoso on 09-15-2022 Albumin/Globulin [Mass ratio] 1.1 {ratio} 0.9-2.4 [facility] Serum or plasma calcium spencer urement (mass/volume)Ordered By: Dr. Troncoso on 09-15-2022 Calcium [Mass/Vol] 8.7 mg/dL 8.5-10.1 [facility] Serum or plasma creatinine m easurement (mass/volume)Ordered By: Dr. Tronocso on 09-15-2022 Creatinine [Mass/Vol] 0.82 mg/dL 0.55-1.[address] [facility] Comment on above: The validity of the calculated GFR & GFRAA in patients over 70 years has not been determined. Clinical correlation is essential. Serum or plasma urea nitroge n measurement (mass/volume)Ordered By: Dr. Troncoso on 09-15-2022 Urea nitrogen [Mass/Vol] 10 mg/dL 7-18 [facility] Thin prep Papanicolaou smear with manual screeningOrdered By: Dr. Troncoso on 09-15-2022 Thin prep Papanicolaou smear with manual screening 18 U/L 15-37 [facility] Thin prep Papanicolaou smear with manual screening 4 5-15 [facility] Absolute lymphocyte counton 06-14-2021 Lymphocytes Auto (Unsp spec) [#/Vol] 2.04 10*3/uL 0.83-4.51 [facility] Work Phone: Basophil percentageon 2021 Basophils/100 WBC (Bld) 0.5 % 0-1 [facility] Work Phone: Eosinophils/100 WBC (Bld) 2.5 % 0-5 [facility] Work Phone: Neutrophils (Bld) [#/Vol] 3.0 10*3/uL 2.0-7.7 [facility] Work Phone: Neutrophils/100 WBC (Bld) 52.0 % 47-70 [facility] Work Phone: WBC (Bld) [#/Vol] 5.7 10*3/uL 4.4-11.0 [facility] Work Phone: Blood erythrocytes count (nu mber/volume)on 06-14-2021 RBC (Bld) [#/Vol] 3.86 10*6/uL 4.2-5.4 [facility]: Blood hemoglobin measurement (mass/volume)on 06-14-2021 Hemoglobin (Bld) [Mass/Vol] 12.4 g/dL 12.0-15.0 [facility] Work Phone: Blood lymphocytes/100 leukoc yteson 06-14-2021 Lymphocytes/100 WBC (Bld) 35.8 % 19-41 [facility] Work Phone: Blood monocytes/100 leukocyt eson 06-14-2021 Monocytes/100 WBC (Bld) 8.8 % 0-10 [facility] Work Phone: Blood platelet mean volumeon 06-14-2021 Platelet mean volume (Bld) [Entitic vol] 9.8 fL 6.2-12.0 [facility] Work Phone: Determination of erythrocyte mean corpuscular volume (MCV)on 06-14-2021 MCV (RBC) [Entitic vol] 95.1 fL 81-99 [facility] Work Phone: [phone] Erythrocyte sedimentation ra adin 06-14-2021 ESR (Bld) [Velocity] 14 mm/h 0-30 [facility] Work Phone: [phone] Hematocrit Auto (Bld) [Volum e fraction]on 06-14-2021 Hematocrit (Bld) [Volume fraction] 36.7 % 37-47 [facility] Work Phone: Laboratory - Hematology and Cell countson 06-14-2021 Erythrocyte distribution width (RBC) [Entitic vol] 40.0 fL 35.1-43.9 [facility] Work Phone: [phone] Erythrocyte distribution width (RBC) [Ratio] 11.7 % 11.6-14.6 [facility] Work Phone: [phone] Immature granulocytes/100 WBC (Bld) 0.400 % 0.0-0.9 [facility] Work Phone: [phone] Comment on above: IG% - Immature Granu locytes (promyelocytes, myelocytes and metamyelocytes) > 1% indicates that a LEFT SHIFT is Present. MCH (RBC) [Entitic mass] 32.1 pg 27.0-32.0 [facility] Work Phone: Nucleated RBC/100 WBC (Bld) [Ratio] 0 % 0-5 [facility] Work Phone: [phone] MCHC Auto (RBC) [Mass/Vol]on 06-14-2021 MCHC (RBC) [Mass/Vol] 33.8 g/dL 32-[address] [facility] Work Phone: Platelets bldon 06-14-2021 Platelets (Bld) [#/Vol] 339 10*3/uL 150-450 [facility] Work Phone: NOVEL CORONAVIRUS (COVID-19) on 10-07-2019 SARS-COV-2 Not Detected Normal Not Detected [employer] [facility] Comment on above: Order Comment: This assay was performed by [employer] (BRAN) on the Stand In??? [place]??? System ([employer] [place], [place]) using Men'S Locker Room Attendant Mediated Amplification (TMA) technology. This test was developed, and its performance characteristics determined by [facility]. The [employer]??? SARS-CoV-2 assay is for use only under Emergency Use Authorization (EUA) in the [place] laboratories certified under the Clinical Laboratory Improvement Amendments of 1988 (CLIA), 42 U.S.C. ???263a, to perform high complexity tests. Performed By: #### C OVID19 #### [facility] [address] [place], [place], HSV IgG Abon 01-18-2017 HSV IgG Ab 5.50 ISR High 0.00-0.80 [facility] Comment on above: Result Comment: Nega tive: < 0.80 ISREquivocal: 0.80-0.99 ISRPositive: > 0.99 ISR Performed By: #### H SVGG ####[address] [id number] Office Visit: thrombosed hem orrhoidon 12-01-2016 Documentation of current medications (procedure) Done Invalid Interpretation Code [facility] Work Phone: Fall risk assessment No Invalid Interpretation Code [facility] Work Phone: Tobacco smoking status NHIS Never Invalid Interpretation Code [facility] Work Phone: Tobacco use CPHS Never smoker Invalid Interpretation Code [facility] Work Phone: Vital Signs Date Time Vital Sign Value Performing Clinician Facility 07-24-2023 11:05-0400 Body height 166.4 cm Laly Chew MD Work Phone: [facility] 07-24-2023 11:05-0400 Body weight 66.68 kg Laly Chew MD Work Phone: [facility] 07-24-2023 11:05-0400 Diastolic blood pressure 68 mm[Hg] Laly Chew MD Work Phone: [facility] 07-24-2023 11:05-0400 Systolic blood pressure 112 mm[Hg] Laly Chew MD Work Phone: [facility] 06-25-2023 11:07-0400 Body weight 69.4 kg Laly Chew MD Work Phone: [facility] 06-25-2023 11:07-0400 Diastolic blood pressure 86 mm[Hg] Laly Chew MD Work Phone: [facility] 06-25-2023 11:07-0400 Systolic blood pressure 134 mm[Hg] Laly Chew MD Work Phone: [facility] 2023 13:45-0500 Body temperature 98.2 [degF] [facility] 2023 13:45-0500 Diastolic blood pressure 75 mm[Hg] [facility] 2023 13:45-0500 Heart rate 65 /min [facility] 2023 13:45-0500 Respiratory rate 16 /min [facility] 2023 13:45-0500 SaO2% (BldA) [Mass fraction] 99 % [facility] 2023 13:45-0500 Systolic blood pressure 138 mm[Hg] [facility] 06-15-2023 05:37-0500 Body height 167.64 cm [facility] 06-15-2023 05:37-0500 Body mass index (BMI) [Ratio] 27.5 kg/m2 [facility] 06-15-2023 05:37-0500 Body weight 77.38 kg [facility] 06-08-2023 11:13-0500 Body weight 77.38 kg Betsy Thomas APRN.CNM Work Phone: [facility] 06-08-2023 11:13-0500 Diastolic blood pressure 70 mm[Hg] Betsy Thomas APRN.CNM Work Phone: [facility] 06-08-2023 11:13-0500 Systolic blood pressure 120 mm[Hg] Betsy Thomas APRN.CNM Work Phone: [facility] 05-30-2023 10:32-0500 Body weight 75.3 kg Laly Chew MD Work Phone: [facility] 05-30-2023 10:32-0500 Diastolic blood pressure 82 mm[Hg] Laly Chew MD Work Phone: [facility] 05-30-2023 10:32-0500 Systolic blood pressure 152 mm[Hg] Laly Chew MD Work Phone: [facility] 05-24-2023 09:56-0500 Body weight 76.2 kg Laly Chew MD Work Phone: [facility] 05-24-2023 09:56-0500 Diastolic blood pressure 72 mm[Hg] Laly Chew MD Work Phone: [facility] 05-24-2023 09:56-0500 Systolic blood pressure 132 mm[Hg] Laly Chew MD Work Phone: [facility] 03-27-2023 10:51-0500 Body weight 74.21 kg Patience Villarreal MD Work Phone: [facility] 03-27-2023 10:51-0500 Diastolic blood pressure 72 mm[Hg] Patience Villarreal MD Work Phone: [facility] 03-27-2023 10:51-0500 Systolic blood pressure 122 mm[Hg] Patience Villarreal MD Work Phone: [facility] 02-27-2023 15:43-0500 Body height 166.4 cm Laly Chew MD Work Phone: [facility] 02-27-2023 14:53-0500 Body weight 70.94 kg Laly Chew MD Work Phone: [facility] 02-27-2023 14:53-0500 Diastolic blood pressure 62 mm[Hg] Laly Chew MD Work Phone: [facility] 02-27-2023 14:53-0500 Systolic blood pressure 104 mm[Hg] Laly Chew MD Work Phone: [facility] 06-14-2021 08:47-0500 Body height 165.1 cm [facility] Work Phone: 12-01-2016 14:39-0400 BMI (Body Mass Index) 24.95 kg/m2 Sanjay Ferreira MD [facility] Work Phone: 12-01-2016 14:39-0400 Body Temperature 97.8 [degF] Sanjay Ferreira MD [facility] Work Phone: 12-01-2016 14:39-0400 Body Temperature 97.81 [degF] Sanjay Ferreira MD [facility] Work Phone: 12-01-2016 14:39-0400 BP Diastolic 76 mm[Hg] Sanjay Ferreira MD [facility] Work Phone: 12-01-2016 14:39-0400 BP Systolic 109 mm[Hg] Sanjay Ferreira MD [facility] Work Phone: 12-01-2016 14:39-0400 Height 167.64 cm Sanjay Ferreira MD [facility] Work Phone: 12-01-2016 14:39-0400 Pulse (Heart Rate) 75 /min Sanjay Ferreira MD [facility] Work Phone: 12-01-2016 14:39-0400 Respiratory Rate 20 /min Sanjay Ferreira MD [facility] Work Phone: 12-01-2016 14:39-0400 Weight 70.13 kg Sanjay Ferreira MD [facility] Work Phone: Encounters Encounter Date Encounter Type Care Provider Facility Start: 05-11-2024 End: 05-11-2024 ambulatory Nash Menon NP Facility:[facility] Start: 09-17-2023 End: 09-17-2023 ambulatory Mike Elizalde PA Facility:[facility] Start: 07-30-2023 End: 07-30-2023 Psych [facility] Collette Alexander MD Work Phone: Psychiatry Comment on above: Adjustment disorder, unspecified type (Primary Dx) Start: 07-24-2023 End: 07-24-2023 ambulatory LALY CHEW Facility:[facility] Start: 07-24-2023 End: 07-24-2023 Patient encounter procedure Laly Chew MD Work Phone: OB/Gynecology Comment on above: care and examination (Primary Dx); Acute postop pain NEC Start: 07-20-2023 End: 07-21-2023 ambulatory [facility] Facility:[facility] Start: 07-19-2023 End: 07-19-2023 ambulatory [facility] Facility:[facility] Start: 07-19-2023 End: 07-19-2023 [facility] RN [facility] Work Phone: Psychiatry Comment on above: Adjustment disorder, unspecified type (Primary Dx) Start: 06-25-2023 End: 06-25-2023 ambulatory LALY CHEW Facility:[facility] Start: 06-25-2023 End: 06-25-2023 Patient encounter procedure Laly Chew MD Work Phone: OB/Gynecology Comment on above: Postoperative pain ( Primary Dx); Gestational diabetes mellitus (GDM), delivered; Status post section routine follow-up Start: 06-15-2023 End: 2023 Evaluation and management of inpatient [facility] [place] Work Phone: Start: 06-08-2023 End: 06-08-2023 ambulatory SELF Facility:[facility] Start: 06-08-2023 End: 06-08-2023 Patient encounter procedure Betsy Thomas PLANETARIUM TECHNICIAN.CNM Work Phone: OB/Gynecology Comment on above: 38 weeks gestation o f (Primary Dx); Diet controlled gestational diabetes mellitus (GDM) in third trimester; Supervision of high risk in third trimester Start: 06-01-2023 Telephone encounter Laly Chew MD Work Phone: OB/Gynecology Comment on above: Insurance Authorizat ion Start: 05-31-2023 Telephone encounter Laly Chew MD Work Phone: OB/Gynecology Comment on above: Insurance Authorizat ion Start: 05-30-2023 End: 05-31-2023 ambulatory CRYSTAL SARMIENTO Facility:[facility] Start: 05-30-2023 End: 05-30-2023 ambulatory LALY CHEW Facility:[facility] Start: 05-30-2023 End: 05-30-2023 Patient encounter procedure Laly Chew MD Work Phone: OB/Gynecology Comment on above: Supervision of high risk in third trimester (Primary Dx); Diet controlled gestational diabetes mellitus (GDM) in third trimester; 37 weeks gestation of ; Hemorrhoids, unspecified hemorrhoid type Start: 05-24-2023 End: 05-24-2023 ambulatory LALY CHEW Facility:[facility] Start: 05-24-2023 End: 05-24-2023 Patient encounter procedure Laly Chew MD Work Phone: OB/Gynecology Comment on above: Supervision of high risk in third trimester (Primary Dx); 36 weeks gestation of ; Uterine size-date discrepancy, third trimester; Diet controlled gestational diabetes mellitus (GDM) in third trimester; Maternal care due to low transverse uterine scar from previous delivery Uterine size-date di screpancy, third trimester (Primary Dx); Diet controlled gestational diabetes mellitus (GDM) in third trimester; 36 weeks gestation of Start: 05-10-2023 End: 05-10-2023 ambulatory PATIENCE VILLARREAL Facility:[facility] Start: 05-07-2023 End: 05-07-2023 ambulatory SIVA MORENO Facility:[facility] Start: 05-02-2023 End: 05-02-2023 ambulatory BETSY THOMAS Facility:[facility] Start: 04-25-2023 End: 04-25-2023 ambulatory LALY CHEW Facility:[facility] Start: 04-11-2023 End: 04-11-2023 ambulatory BETSY THOMAS Facility:[facility] Start: 04-11-2023 End: 04-12-2023 ambulatory LALY CHEW Facility:[facility] Start: 03-29-2023 Telephone encounter Laly Chew MD Work Phone: OB/Gynecology Comment on above: Results Start: 03-27-2023 End: 03-28-2023 ambulatory LALY CHEW Facility:[facility] Start: 03-27-2023 End: 03-27-2023 Patient encounter procedure Patienec Villarreal MD Work Phone: OB/Gynecology Comment on above: Encounter for superv ision of other normal in third trimester (Primary Dx); 28 weeks gestation of ; Need for vaccination Start: 02-27-2023 End: 02-27-2023 ambulatory [facility] Facility:[facility] Start: 02-27-2023 End: 02-27-2023 Patient encounter procedure Laly Chew MD Work Phone: OB/Gynecology Comment on above: History of delivery, currently (Primary Dx); 24 weeks gestation of ; Encounter for supervision of other normal in second trimester Start: 02-02-2023 End: 02-02-2023 [facility] Facility:[facility] Start: 02-02-2023 End: 02-02-2023 Patient encounter procedure [employer] [facility] Work Phone: OB/Gynecology Comment on above: Encounter for anatomic survey (Primary Dx); with care elsewhere, antepartum; 20 weeks gestation of Start: 01-18-2023 End: 01-18-2023 ambulatory RACHEL FENG Facility:[facility] Start: 01-16-2023 End: 01-16-2023 [facility] Start: 01-16-2023 End: 01-16-2023 Nursing evaluation of patient and report Nurse Pnob [facility] Work Phone: OB/Gynecology Comment on above: with prena anders care elsewhere, antepartum; History of delivery, currently ; History of herpes genitalis; History of depression; Family history of muscular dystrophy Start: 01-01-2023 Telephone encounter Rachel thompson MD Work Phone: OB/Gynecology Comment on above: transfer of care Start: 11-21-2022 End: 11-21-2022 ambulatory [facility] Work Phone: Start: 11-21-2022 End: 11-21-2022 Patient encounter procedure [facility] [place] correspondence dictator Off Start: 09-15-2022 End: 09-15-2022 ambulatory [facility] Work Phone: Start: 09-15-2022 End: 09-15-2022 Patient encounter procedure [facility] Start: 06-14-2021 End: 06-14-2021 Patient encounter procedure [facility] Start: 10-07-2019 Patient encounter procedure UNKNOWN PROVIDER Facility:[facility] Start: 01-17-2017 End: 01-18-2017 Ambulatory GRACIA L CONGENI [facility] Procedures Date Procedure Procedure Detail Performing Clinician Start: 06-08-2023 URINE OB DIP B/O Betsy Thomas APRN.CNM Work Phone: Start: 05-30-2023 URINE OB DIP B/O Laly Chew MD Work Phone: Start: 05-24-2023 URINE OB DIP B/O Laly Chew MD Work Phone: Start: 05-24-2023 Us preg uterus after 1st trimest / gestation Patience Villarreal MD Work Phone: Start: 03-27-2023 URINE OB DIP B/O Patience Villarreal MD Work Phone: Start: 02-27-2023 URINE OB DIP B/O Patience Villarreal MD Work Phone: Start: 02-02-2023 Us preg uterus after 1st trimest / gestation Patience Villarreal MD Work Phone: Start: 01-16-2023 H/O: section History of delivery, currently Nurse Pnob [facility] Work Phone: Start: 11-21-2022 Antibody screen Nurse [facility]str Work Phone: Start: 11-21-2022 CBC panel - Blood by Automated count [facility] Provider Start: 11-21-2022 HEP ACUTE PANEL BL [facility] Provider Start: 11-21-2022 HEP B SURF AG SCRN [facility] Provider Start: 11-21-2022 HIV 1 2 COMBO(AG/AB),WITH REFLEX TO DIFFERENTIATION [facility] Provider Start: 11-21-2022 SYPHILIS TOTAL W/REFLEX [facility] Provider Start: 11-21-2022 TYPE + SCREEN (EXTERNAL LAB) [facility] Provider Start: 11-21-2022 Urine culture H/O: section History of delivery, currently Laly Chew MD Work Phone: H/O: section Previous c esarean delivery affecting , antepartum H/O: section Status post C-secti on Plan of Treatment Date Care Activity Detail Author Start: 03-27-2033 Urine microalbumin profile DTaP,Tdap,Td Vaccine (7 - Td or Tdap) [facility] Start: 11-22-2027 Pap Testing Pap Testing [facility] Start: 11-22-2027 Screening for malignant neoplasm of cervix Pap Testing [facility] Start: 12-16-2023 Influenza vaccination Influenza Vaccine (Season Ended) [facility] Start: 07-19-2023 End: 10-18-2023 ETHYL GLUCURONIDE UR SCR ETHYL GLUCURONIDE UR SCR Lab Routine Adjustment disorder, unspecified type Expected: 07/19/2023 (Approximate), Expires: 10/18/2023 [facility] Work Phone: Comment on above: Expected: 07/19/2023 (Approximate), Expi res: 10/18/2023 Start: 07-19-2023 End: 10-18-2023 PAIN PANEL, UR QUANT PAIN PANEL, UR QUANT Lab Routine Adjustment disorder, unspecified type Expected: 07/19/2023 (Approximate), Expires: 10/18/2023 [facility] Work Phone: Comment on above: Expected: 07/19/2023 (Approximate), Expi res: 10/18/2023 Start: 07-19-2023 End: 10-18-2023 PHOSPHATIDYLETHANOL (PETH) PHOSPHATIDYLETHANOL (PETH) Lab Routine Adjustment disorder, unspecified type Expected: 07/19/2023 (Approximate), Expires: 10/18/2023 [facility] Work Phone: Comment on above: Expected: 07/19/2023 (Approximate), Expi res: 10/18/2023 Start: 07-19-2023 End: 10-18-2023 TOX SCREEN ROUT UR TOX SCREEN ROUT UR Lab Routine Adjustment disorder, unspecified type Expected: 07/19/2023 (Approximate), Expires: 10/18/2023 [facility] Work Phone: Comment on above: Expected: 07/19/2023 (Approximate), Expi res: 10/18/2023 Start: 06-25-2023 End: 09-24-2023 GLUC HAYLEY, 2-HR NON-GEST, 75 GM, FASTING GLUC HAYLEY, 2-HR NON-GEST, 75 GM, FASTING Lab Routine Gestational diabetes mellitus (GDM), delivered Expected: 06/25/2023, Expires: 09/24/2023 [facility] Work Phone: Comment on above: Expected: 06/25/2023, Expires: Start: 2023 Patient discharge [facility] Start: 06-16-2023 [facility] Start: 06-16-2023 Application of abdominal corset [facility] Start: 06-16-2023 Consultation [facility] Start: 06-15-2023 End: 06-15-2023 Notification of physician [facility] Start: 06-15-2023 Vital signs measurements [facility] Start: 06-15-2023 [facility] Start: 06-15-2023 Administration of medication [facility] Start: 06-15-2023 Ambulation therapy management [facility] Start: 06-15-2023 Application of device [facility] Start: 06-15-2023 Application of intermittent pneumatic compression device [facility] Start: 06-15-2023 Assessment of risk of venous thromboembolism [facility] Start: 06-15-2023 Catheterization of vein [facility] Start: 06-15-2023 Deep breathing and coughing exercises [facility] Start: 06-15-2023 Exercises [facility] Start: 06-15-2023 Introduction of urinary catheter [facility] Start: 06-15-2023 Measuring intake and output [facility] Start: 06-15-2023 Notification of physician [facility] Start: 06-15-2023 Procedure discontinued [facility] Start: 06-15-2023 Provision of activity privileges [facility] Start: 06-15-2023 Skin care [facility] Start: 06-15-2023 Vital signs measurements [facility] Start: 06-15-2023 Wound care [facility] Start: 06-15-2023 [facility] Start: 06-15-2023 Application of abdominal corset [facility] Start: 06-15-2023 End: 06-15-2023 [facility] Start: 06-15-2023 section Repeat Bilateral Salpingectomy (Not Applicable) [facility] Start: 06-15-2023 Admission procedure [facility] Start: 04-16-2023 Depression Assessment Depression Assessment [facility] Start: 02-27-2023 End: 05-29-2023 CBC W Auto Differential panel - Blood CBC + DIFF Lab Routine History of delivery, currently 24 weeks gestation of Encounter for supervision of other normal in second trimester Expected: 02/27/2023, Expires: 05/29/2023 [facility] Work Phone: Comment on above: Expected: 02/27/2023, Expires: 4 Start: 02-27-2023 End: 05-29-2023 GEST GLUC SCREEN, 1-HR, 50 GM, NON-FASTING GEST GLUC SCREEN, 1-HR, 50 GM, NON-FASTING Lab Routine History of delivery, currently 24 weeks gestation of Encounter for supervision of other normal in second trimester Expected: 02/27/2023, Expires: 05/29/2023 [facility] Work Phone: Comment on above: Expected: 02/27/2023, Expires: 4 Start: 02-27-2023 End: 05-29-2023 SYPHILIS TOTAL W/REFLEX SYPHILIS TOTAL W/REFLEX Lab Routine History of delivery, currently 24 weeks gestation of Encounter for supervision of other normal in second trimester Expected: 02/27/2023, Expires: 05/29/2023 [facility] Work Phone: Comment on above: Expected: 02/27/2023, Expires: 4 Start: 12-15-2022 Covid-19 Vaccine ( season) Covid-19 Vaccine () [facility] Start: 12-15-2022 Influenza vaccination Influenza Vaccine (#1) [facility] Start: 04-16-2022 Depression Assessment Depression Assessment [facility] Start: 2020 HPV Testing HPV Testing [facility] Start: 2020 Screening for malignant neoplasm of cervix HPV Testing [facility] Start: 12-06-2016 End: 12-06-2016 Appointment Appointment [facility] Work Phone: Start: 12-01-2016 End: 12-04-2016 Incise external hemorrhoid Incision of thrombosed hemorrhoid, external [facility] Work Phone: Start: 11-25-2015 Urine microalbumin profile DTaP,Tdap,Td Vaccine (6 - Td or Tdap) [facility] Start: 06-19-2011 Pap Testing Pap Testing [facility] Start: 2009 Urine microalbumin profile DTaP,Tdap,Td Vaccine (1 - Tdap) [facility] Start: 2008 Hepatitis C Screening Hepatitis C Screening [facility] Start: 2008 HIV Screening HIV Screening [facility] Start: 12-22-2005 Hepatitis B Vaccine (2 of 3 - 3-dose series) Hepatitis B Vaccine (2 of 3 - 3-dose series) [facility] Start: 1990 Covid-19 Vaccine (#1) Covid-19 Vaccine (#1) [facility] Start: 1990 Hepatitis B Vaccine (1 of 3 - 3-dose series) Hepatitis B Vaccine (1 of 3 - 3-dose series) [facility] Patient Education Section Dc [facility] Work Phone: Patient referral [facility] Work Phone: ROUTINE, GR OUP B STREP PCR ROUTINE, GROUP B STREP PCR Microbiology Routine 36 weeks gestation of 05/24/2023 11:46 AM EST [facility] Work Phone: [facility] Immunizations Immunization Date Immunization Notes Care Provider Fa [facility] 03-27-2023 tetanus toxoid, redu raj diphtheria toxoid, and acellular pertussis vaccine, adsorbed Patience Villarreal MD Work Phone: [facility] 05-29-2018 varicella virus vaccine Conchita Chew MD Work Phone: [facility] Work Phone: 01-14-2013 influenza, seasonal, injectable Laly Chew MD Work Phone: [facility] Work Phone: 01-14-2013 influenza virus vaccine, unspecified formulation [facility] Work Phone: [facility] 11-24-2005 hepatitis B vaccine, pediatric or pediatric/adolescent dosage Laly Chew MD Work Phone: [facility] Work Phone: 11-24-2005 measles, mumps and rubella virus vaccine Laly Chew MD Work Phone: [facility] Work Phone: 11-24-2005 tetanus toxoid, redu raj diphtheria toxoid, and acellular pertussis vaccine, adsorbed Laly Chew MD Work Phone: [facility] Work Phone: 06-19-1994 diphtheria, tetanus toxoids and acellular pertussis vaccine, unspecified formulation Laly Chew MD Work Phone: [facility] Work Phone: 06-19-1994 trivalent poliovirus vaccine, live, oral Laly Chew MD Work Phone: [facility] Work Phone: 10-30-1991 haemophilus influenz ae type b vaccine, conjugate unspecified formulation Laly Chew MD Work Phone: [facility] Work Phone: 10-30-1991 measles, mumps and rubella virus vaccine Laly Chew MD Work Phone: [facility] Work Phone: 03-06-1991 diphtheria, tetanus toxoids and pertussis vaccine Laly Chew MD Work Phone: [facility] Work Phone: 03-06-1991 haemophilus influenz ae type b vaccine, conjugate unspecified formulation Laly Chew MD Work Phone: [facility] Work Phone: 01-02-1991 diphtheria, tetanus toxoids and pertussis vaccine Laly Chew MD Work Phone: [facility] Work Phone: 01-02-1991 haemophilus influenz ae type b vaccine, conjugate unspecified formulation Laly Chew MD Work Phone: [facility] Work Phone: 01-02-1991 trivalent poliovirus vaccine, live, oral Laly Chew MD Work Phone: [facility] Work Phone: 1990 diphtheria, tetanus toxoids and pertussis vaccine Laly Chew MD Work Phone: [facility] Work Phone: 1990 haemophilus influenz ae type b vaccine, conjugate unspecified formulation Laly Chew MD Work Phone: [facility] Work Phone: 1990 trivalent poliovirus vaccine, live, oral Laly Chew MD Work Phone: [facility] Work Phone: Payers Date Payer Category Payer Self-pay [id number] 2022 Medicaid [employer] [id number] 2022-Present [phone] [address] [place] [address] Medicaid [id number] 2017 Unknown [id number] 2017 Unknown [id number] 1990 [id number] Unknown [id number] Unknown [id number] Social History Date Type Detail Facility Start: 01-09-2017 End: 06-15-2023 Tobacco smoking status GAIS Unknown if ever smoked [facility] Start: 04-16-2015 Rare [facility] Start: 04-16-2015 None [facility] Start: 04-16-2015 With Family [facility] Start: 1990 Sex Assigned At Female [facility] Start: 1990 Sex Assigned At Not on file [facility] Start: 01-16-2023 End: 03-27-2023 Gender identity Not on file [facility] Work Phone: Start: 01-16-2023 [facility] Work Phone: End: 04-16-2015 History of tobacco use Current smoker [facility] Work Phone: End: 04-16-2015 History of tobacco use Cigarette Smoker [facility] Work Phone: Start: 01-16-2023 Tobacco use and exposure Smokeless tobacco non-user [facility] Work Phone: Start: 01-16-2023 End: 07-24-2023 Alcohol intake Ex-drinker (finding) [facility] Start: 01-16-2023 End: 03-27-2023 History of Social function [facility] Work Phone: The thought of sara adia myself has occurred to me Never [facility] Work Phone: Start: 01-16-2023 Education 15 [facility] Start: 09-26-2022 [facility] National Score (1-10 0), lower number is lower risk 65 [facility] Medical Equipment Procedure Code Equipment Code Equipment Original Text Equipment Identifier Dates Start: 04-11-2023 End: 07-24-2023 Comment on above: 1 Strip four times d aily. Use as instructed 1 Each four times da jose. Use as instructed Goals Date Patient Goal Desired Activity /State Functional Status Date Assessment Result Facility 06-15-2023 Functional status Activity Abili ty Bedrest;Post Op [facility] Work Phone: Mental Status Date Assessment Result Facility 06-15-2023 Cognitive function Voice/Name [facility] Work Phone: Clinical Notes 11-21-2022 to 07-30-2023 Collette Alexander MD - 07/30/2023 4:25 PM Laly Baptiste MD - 07/24/2023 10:50 AM Laly Baptiste MD - 06/25/2023 11:05 AM EDT Note Date & Type Note Facility 07-30-2023 Note HNO ID: [id number] Author: COLLETTE ALEXANDER MD Service: ? Author Type: Physician Type: Progress Notes Filed: 07/30/2023 16:34 Note Text: CC: Patient presents for staffing from assessment completed to satisfy OBN consent agreement. Visit Type:Virtual Visit utilizing two-way audio and video for at least a portion of the visit. Consent for virtual visit obtained verbally. Confidentiality limitations with virtual visits reviewed with the patient and guardian, if present, who have accepted the risk verbally prior to proceeding with encounter. I have communicated my name and active licensure. The patient's identity and physical location were verified at the time of this visit. Either the patient or their legal containers sales representative has been informed of the risks and benefits of -- and alternatives to -- treatment through a remote evaluation and consents to proceed with the evaluation remotely. HPI: I reviewed case with Shobha Castle earlier today. I reminded pt she needs to complete SASSI. She says she needs to print it out and should be able to do that soon. I reviewed her consent agreement prior to our visit today. Urine drug screens:Reviewed. Oxymorphone test was positive OARRS: PDMP website checked and validated. All prescriptions have been APPROPRIATELY filled. No suspicious activity was identified. 07/30/2023 by Collette Alexander MD. Rxs from Dr. Laly Chew ([facility] PRESALES CONSULTANT) filled on 07/24/2023, as [address] as Dr. Karlie Baez (PRESALES CONSULTANT in [employer]). My Last OARRS Check for this patient OARRS REPORTING HISTORY There is no flowsheet data to display. Risks and benefits of the medication, including any black box warnings, were discussed with the patient. PAST MEDICAL HISTORY Diagnosis Date Depression/anxiety Herpes simplex virus (HSV) infection Insulin controlled gestational diabetes mellitus (GDM) in third trimester 04/11/2023 PAST SURGICAL HISTORY Procedure Laterality Date DELIVERY ONLY Bilateral 06/15/2023 salpingectomy SECTION HX 2017 LAPAROSCOPIC APPENDECTOMY 04/16/2015 NEXPLANON INSERTION removed Interval Progress: Same SINGLE ORGAN PSYCH EXAM: Constitutional: Well groomed Musculoskeletal: Gait: Gait not observed due to virtual visit Psychiatric: Speech: Appropriate rate, volume, and prosody Language: Normal Associations: Intact Thought Process:Logical, Coherent, and Rational Progression:There was no evidence of disturbance in thought perception or progression. Fund of Knowledge: Appropriate and Adequate MSE: Orientation: Person, Place, Time and Situation Memory: Recent intact, Remote intact, Immediate intact Concentration: Normal Mood: Euthymic Affect: Full and appropriate to topic Suicide: None Homicide: None PFSH: Unchanged since initial visit. DATA REVIEWED: Electronic Medical Record and OARRS Patient Health Questionnaire (PHQ-9) 07/19/2023 PHQ-9 Score 0 (0-4) minimal depression, (5-9) mild depression, (10-14) moderate depression, (15-19) moderately severe depression, (20-27) severe depression TREATMENT PLAN: She explained that consent agreement and events that led to that have been overwhelming. She's also taking care of her 1 month old son. DIAGNOSIS: Adjustment Disorder Inadequate evidence to support an ISAAC diagnosis at this moment. Follow Up: PRN Collette Alexander MD I spent a total of 20 minutes on the date of the service which included preparing to see the patient, [id number] patient care, completing clinical documentation, performing a medically appropriate examination, counseling and educating the patient/family/caregiver, and ordering medications, tests, or procedures. [facility] 07-30-2023 History of Presen t illness Narrative CC: Patient presents for staffing from assessment completed to satisfy OBN consent agreement. Visit Type:Virtual Visit utilizing two-way audio and video for at least a portion of the visit. Consent for virtual visit obtained verbally. Confidentiality limitations with virtual visits reviewed with the patient and guardian, if present, who have accepted the risk verbally prior to proceeding with encounter. I have communicated my name and active licensure. The patient's identity and physical location were verified at the time of this visit. Either the patient or their legal containers sales representative has been informed of the risks and benefits of -- and alternatives to -- treatment through a remote evaluation and consents to proceed with the evaluation remotely. HPI: I reviewed case with Shobha Castle earlier today. I reminded pt she needs to complete SASSI. She says she needs to print it out and should be able to do that soon. I reviewed her consent agreement prior to our visit today. Urine drug screens:Reviewed. Oxymorphone test was positive OARRS: PDMP website checked and validated. All prescriptions have been APPROPRIATELY filled. No suspicious activity was identified. 07/30/2023 by Collette Alexander MD. Rxs from Dr. Laly Chew ([facility] PRESALES CONSULTANT) filled on 07/24/[address], [address] as Dr[address] Karlie Baez (PRESALES CONSULTANT in [employer]). My Last OARRS Check for this patient OARRS REPORTING HISTORY There is no flowsheet data to display. Risks and benefits of the medication, including any black box warnings, were discussed with the patient. PAST MEDICAL HISTORY Diagnosis Date Depression/anxiety Herpes simplex virus (HSV) infection Insulin controlled gestational diabetes mellitus (GDM) in third trimester 04/11/2023 PAST SURGICAL HISTORY Procedure Laterality Date DELIVERY ONLY Bilateral 06/15/2023 salpingectomy SECTION HX 2017 LAPAROSCOPIC APPENDECTOMY 04/16/2015 NEXPLANON INSERTION removed Interval Progress: Same SINGLE ORGAN PSYCH EXAM: Constitutional: Well groomed Musculoskeletal: Gait: Gait not observed due to virtual visit Psychiatric: Speech: Appropriate rate, volume, and prosody Language: Normal Associations: Intact Thought Process:Logical, Coherent, and Rational Progression:There was no evidence of disturbance in thought perception or progression. Fund of Knowledge: Appropriate and Adequate MSE: Orientation: Person, Place, Time and Situation Memory: Recent intact, Remote intact, Immediate intact Concentration: Normal Mood: Euthymic Affect: Full and appropriate to topic Suicide: None Homicide: None PFSH: Unchanged since initial visit. DATA REVIEWED: Electronic Medical Record and OARRS Patient Health Questionnaire (PHQ-9) 07/19/2023 PHQ-9 Score 0 (0-4) minimal depression, (5-9) mild depression, (10-14) moderate depression, (15-19) moderately severe depression, (20-27) severe depression TREATMENT PLAN: She explained that consent agreement and events that led to that have been overwhelming. She's also taking care of her 1 month old son. DIAGNOSIS: Adjustment Disorder Inadequate evidence to support an ISAAC diagnosis at this moment. Follow Up: MOY Alexander MD I spent a total of 20 minutes on the date of the service which included preparing to see the patient, [id number] patient care, completing clinical documentation, performing a medically appropriate examination, counseling and educating the patient/family/caregiver, and ordering medications, tests, or procedures. documented in this encounter [facility] 07-24-2023 Note HNO ID: [id number] Author: LALY CHEW MD Service: ? Author Type: Physician Type: Progress Notes Filed: 07/24/2023 11:22 Note Text: VISIT Ivy Lincoln is a 33 year old year old here for visit. Reports some increasee pain in incision last few days. Vaginal bleeding light and no changes. No fever. Reports incision more pink a few days ago and now looking better. No drainage from incision. Delivery Summary: tubal and c/s ROS/ Recovery: Feeding: Breast feeding problems: None Menses since delivery: light flow Menstrual pattern prior to : Regular periods [place] since delivery: Resumed Depression: denies symptoms of depression. OB Depression and Anxiety Screening- This Encounter (since 07/23/2023) Over the past 2 weeks have you felt down, depressed, or hopeless? Negative Over the past two weeks, have you felt little interest or pleasure in doing things?? Negative Feeling nervous, anxious or on edge 0-Not at all Not being able to stop or control worrying 0-Not al all Anxiety Pre-Screening Total (If >/= 3 additional questions will be reviewed) 0 Emotional support: Yes Bowel symptoms: No nausea, vomiting, or diarrhea, No heartburn or reflux symptoms, and Negative for abdominal discomfort, blood in stools or black stools Abdomen: little redness at the incision Bladder symptoms: No dysuria, gross hematuria, urinary frequency, urinary urgency, or incontinence Other issues: None Last Pap: 2022 normal HPV: negative PAST MEDICAL HISTORY Diagnosis Date Depression/anxiety Herpes simplex virus (HSV) infection Insulin controlled gestational diabetes mellitus (GDM) in third trimester 04/11/2023 PAST SURGICAL HISTORY Procedure Laterality Date DELIVERY ONLY Bilateral 06/15/2023 salpingectomy SECTION HX 2017 LAPAROSCOPIC APPENDECTOMY 04/16/2015 NEXPLANON INSERTION removed FAMILY HISTORY Problem Relation Age of Onset other (gestational diabetes) Mother Thyroid Mother No Known Problems Father No Known Problems Sister No Known Problems Brother No Known Problems Brother Breast Cancer Maternal Grandmother Brain Cancer Maternal Grandmother Accidental Maternal Grandfather Heart Attack Paternal Grandmother Heart Attack Paternal Grandfather No Known Problems Son No Known Problems Daughter Social History Tobacco Use Smoking status: Former Years: 5 Types: Cigarettes Quit date: 2015 Years since quittin.2 Smokeless tobacco: Never Vaping Use Vaping Use: Never used Substance Use Topics Alcohol use: Not Currently Drug use: Not Currently Types: Marijuana Comment: no use since October 2022 Reviewed above and agree. Changes or additions in italics. PHYSICAL EXAMINATION: BP 112/68 Ht 5' 5.5 (1.66m) Wt 147 lb (66.7kg) LMP 09/08/2022 BMI 24.08 kg/(m2). GENERAL: pleasant, female in no apparent distress HEENT: Normocephalic, atraumatic, mucus membranes moist, and no lesions NECK: Supple, full range of motion, no adenopathy, and thyroid normal DERMATOLOGY: Normal, without lesions, non-icteric, and non-hirsute BREAST: soft, non-tender, symmetric, no dominant mass, normal nipple-areolar complex, no lymphadenopathy, and no nipple discharge CHEST: Normal inspiratory effort ABDOMEN: soft, non-tender, and no masses. INCISION: No incisional redness, swelling, or drainage some normal healing induration, no fluctuance PELVIC: external genitalia normal, normal Bartholin's glands, urethra, Bishop's glands, no vulvar lesions, no cervical lesions, good vaginal support, physiologic discharge present, normal appearing perineal body and perianal region BIMANUAL: uterus normal size, shape and consistency, no adnexal masses, and non-tender NEURO: alert and oriented x3,exam grossly non-focal EXTREMITIES: normal ASSESSMENT AND PLAN: 33 year old status post CS with normal course. Contraception plan: tubal ligation Follow up: RTC for annual exams and PRN tubal sterilization gdm- 2 hr screen ordered, encouraged to schedule ok to cont. motrin and tylenol, pain enough keeping her awake, d/w her prn oxycodone d/w her healing of incision no evidence of infection, reassured Laly Chew MD [facility] 07-24-2023 History of Presen t illness Narrative VISIT Ivy Lincoln is a 33 year old year old here for visit. Reports some increasee pain in incision last few days. Vaginal bleeding light and no changes. No fever. Reports incision more pink a few days ago and now looking better. No drainage from incision. Delivery Summary: tubal and c/s ROS/ Recovery: Feeding: Breast feeding problems: None Menses since delivery: light flow Menstrual pattern prior to : Regular periods [place] since delivery: Resumed Depression: denies symptoms of depression. OB Depression and Anxiety Screening- This Encounter (since 07/23/2023) Over the past 2 weeks have you felt down, depressed, or hopeless? Negative Over the past two weeks, have you felt little interest or pleasure in doing things? Negative Feeling nervous, anxious or on edge 0-Not at all Not being able to stop or control worrying 0-Not al all Anxiety Pre-Screening Total (If >/= 3 additional questions will be reviewed) 0 Emotional support: Yes Bowel symptoms: No nausea, vomiting, or diarrhea, No heartburn or reflux symptoms, and Negative for abdominal discomfort, blood in stools or black stools Abdomen: little redness at the incision Bladder symptoms: No dysuria, gross hematuria, urinary frequency, urinary urgency, or incontinence Other issues: None Last Pap: 2022 normal HPV: negative PAST MEDICAL HISTORY Diagnosis Date Depression/anxiety Herpes simplex virus (HSV) infection Insulin controlled gestational diabetes mellitus (GDM) in third trimester 04/11/2023 PAST SURGICAL HISTORY Procedure Laterality Date DELIVERY ONLY Bilateral 06/15/2023 salpingectomy SECTION HX 2017 LAPAROSCOPIC APPENDECTOMY 04/16/2015 NEXPLANON INSERTION removed FAMILY HISTORY Problem Relation Age of Onset other (gestational diabetes) Mother Thyroid Mother No Known Problems Father No Known Problems Sister No Known Problems Brother No Known Problems Brother Breast Cancer Maternal Grandmother Brain Cancer Maternal Grandmother Accidental Maternal Grandfather Heart Attack Paternal Grandmother Heart Attack Paternal Grandfather No Known Problems Son No Known Problems Daughter Social History Tobacco Use Smoking status: Former Years: 5 Types: Cigarettes Quit date: 2015 Years since quittin.2 Smokeless tobacco: Never Vaping Use Vaping Use: Never used Substance Use Topics Alcohol use: Not Currently Drug use: Not Currently Types: Marijuana Comment: no use since October 2022 Reviewed above and agree. Changes or additions in italics. PHYSICAL EXAMINATION: BP 112/68 Ht 5' 5.5 (1.66m) Wt 147 lb (66.7kg) LMP 09/08/2022 BMI 24.08 kg/(m^2). GENERAL: pleasant, female in no apparent distress HEENT: Normocephalic, atraumatic, mucus membranes moist, and no lesions NECK: Supple, full range of motion, no adenopathy, and thyroid normal DERMATOLOGY: Normal, without lesions, non-icteric, and non-hirsute BREAST: soft, non-tender, symmetric, no dominant mass, normal nipple-areolar complex, no lymphadenopathy, and no nipple discharge CHEST: Normal inspiratory effort ABDOMEN: soft, non-tender, and no masses. INCISION: No incisional redness, swelling, or drainage some normal healing induration, no fluctuance PELVIC: external genitalia normal, normal Bartholin's glands, urethra, Bishop's glands, no vulvar lesions, no cervical lesions, good vaginal support, physiologic discharge present, normal appearing perineal body and perianal region BIMANUAL: uterus normal size, shape and consistency, no adnexal masses, and non-tender NEURO: alert and oriented x3,exam grossly non-focal EXTREMITIES: normal ASSESSMENT AND PLAN: 33 year old status post CS with normal course. Contraception plan: tubal ligation Follow up: RTC for annual exams and PRN tubal sterilization gdm- 2 hr screen ordered, encouraged to schedule ok to cont. motrin and tylenol, pain enough keeping her awake, d/w her prn oxycodone d/w her healing of incision no evidence of infection, reassured Laly Chew MD documented in this encounter [facility] 07-19-2023 Note HNO ID: [id number] Author: JANNET CASTLE LISW Service: ? Author Type: Counselor Type: Progress Notes Filed: 08/01/2023 09:05 Note Text: [facility] Assessment Visit Type:Virtual Visit utilizing two-way audio and video for at least a portion of the visit. Consent for virtual visit obtained verbally. Confidentiality limitations with virtual visits reviewed with the patient and guardian, if present, who have accepted the risk verbally prior to proceeding with encounter. I have communicated my name and active licensure. The patient's identity and physical location were verified at the time of this visit. Either the patient or their legal containers sales representative has been informed of the risks and benefits of -- and alternatives to -- treatment through a remote evaluation and consents to proceed with the evaluation remotely. IDENTIFYING INFORMATION: Duration of Interview: start time 10:30 AM and end time 11:15 AM REFERRAL SOURCE: [place] [employer] BENEFITS: Payor: [facility] MEDICAID / Plan: [facility] MEDICAID / Product Type: Medicaid / INFORMED CONSENT: Patient verbally consented to virtual evaluation. Patient and this public relations writer present during interview. PRECIPITATING PROBLEM(S): Patient presents to evaluation as a requirement of the [place] [employer] Consent agreement. 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 Patient states that last summer (2022) she was contacted by the [place] [employer] and placed on a consent agreement. 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 Patient adamantly denies taking any controlled substances from work or abusing any controlled substances, reports that this was an error in protocol. Current withdrawal symptoms: none HISTORY OF PRESENT ILLNESS: ALCOHOL: How old were you at your first use of alcohol: I think I was 16 Progression of Use: I was never a heavy drinker at all. If we were all hanging out at a republican I may have had 2 or 3 drinks. But I never got drunk because I wouldn't like the way it made me sick and throw up Peak of Use: I don't think so denies a peak Any Current Use: denies- last use of alcohol October (2022) weekend. That was right before I found out I was . Substance Misuse Reported: denies loss of control or consequences. OPIOIDS/HEROIN ETC: Ever Used: Never used this class of substance SEDATIVES/BENZODIAZEPINES: Ever Used: Never used this class of substance MARIJUANA: Ever Used: Yes How old were you at your first use of this substance? Early 20's Progression of use: frequent- 2 times a week- I quit smoking when I was 25, 26 Peak of use: I feel like maybe in the summer time I would smoke a little more. And it wasn't like every week, but if I had to average it I would say maybe 2 times a week. Any current use?No- last use age 26 Substance misuse reported? No COCAINE: Ever Used: Never used this class of substance HALLUCINOGENS: Ever Used: Never used this class of substance INHALANTS (Gas, Glue, Whippets): Ever Used: Never used this class of substance AMPHETAMINE/SPEED: Ever Used: Never used this class of substance SYNTHETICS AND OTHER SUBSTANCES: Ever Used: Never used this class of substance TOBACCO: smoked about a pack a week for a year and a half, no use since age 26 Ever used any drugs by injection (IV, IM, skin popping): No CURRENT PSYCHIATRIC MEDICATIONS: NA PRIOR CHEMICAL DEPENDENCY TREATMENTS: No TWELVE STEP HISTORY: -Longest period of sobriety: NA None PSYCHIATRIC HISTORY: -Current Psychiatrist, Psychologist, Counselor, Therapist? No Past medication, psychotherapy trials, ECT or other non-pharmacologic treatments?:No FAMILY HISTORY OF ADDICTION OR PSYCHIATRIC ILLNESS: My mom always said my dad smoked weed a lot LEGAL HISTORY: -History of Juvenile Arrests and/or Charges?: No -Prior Arrests/Convictions/Sentences: Yes - age 20- underage consumption -Pending Legal Problems: None FAMILY/DEVELOPMENTAL HISTORY: -Born/Raised in (City, State): [place] Biological parents were not at time of patient's . -Present in Home During Childhood: Mother, 1 sister(s), and Stepfather (was bipolar, they were together from the time patient was 3 until she graduated high school) -Adopted: No -Sibling Order: youngest of 2- She's 6 1/2 years older than me. I think when I was younger I was the annoying little sister, but as we've gotten older we've gotten closer. 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 -Mother: M (more content not included)... [facility] 06-25-2023 Note HNO ID: [id number] Author: LALY CHEW MD Service: ? Author Type: Physician Type: Progress Notes Filed: 06/25/2023 11:20 Note Text: EARLY VISIT Ivy Lincoln is a 33 year old here for 2 week visit. Some pain. Taking ibuprofen and tylenol and used all oxycodone Delivery Summary: C-s and tubal ROS: General: Denies any fever or chills Hypertension Screening: Headache? Yes. Was it successfully treated with Tylenol? No and not successfully treated with ibuprofen Visual Changes? No Epigastric Pain? No Increased Swelling? No Taking any BP medications at home? No If applicable, monitoring BP at home? (If Yes, include results) NA Mood: worried Depression: denies symptoms of depression. OB Depression and Anxiety Screening- This Encounter (since 06/24/2023) Over the past 2 weeks have you felt down, depressed, or hopeless? Negative Over the past two weeks, have you felt little interest or pleasure in doing things?? Negative Feeling nervous, anxious or on edge 0-Not at all Not being able to stop or control worrying 1-Several days Anxiety Pre-Screening Total (If >/= 3 additional questions will be reviewed) 1 Feeding: Breast feeding problems: None Bladder: No dysuria, gross hematuria, urinary frequency, urinary urgency, or incontinence Bowel symptoms: Negative for abdominal discomfort, blood in stools or black stools and change in bowel habits Abdomen: She reports no incisional redness, tenderness, erythema Bleeding: light flow Bottom and Perineum: No issues Sleep: no sleep concerns and sleeps in bassinet/crib in parent's room, does not feel rested [place] since delivery: Not resumed Emotional support: Yes Exercise: N/A Other issues: None Reviewed above. Laly Chew MD PHYSICAL EXAMINATION: Wt 153 lb (69.4 kg) LMP 09/08/2022 (Approximate) Yes BMI 25.07 kg/m? General: pleasant,female in no apparent distress, AANDO x 3. Skin warm and intact. Breast: Deferred Abdomen: Deferred /Incision: No incisional redness, swelling, or drainage Pelvic: Deferred Bimanual: Deferred ASSESSMENT AND PLAN: 33 year old status post CS with normal course. Contraception plan: tubal ligation. Reinforced 6-week pelvic rest. Encouraged condom usage should patient deviate. Education: resources provided - see MA/RN note needs 2 hr gtt after 6 week PP Follow up: Follow-up with provider for 6 week visit and as needed Laly Chew MD [facility] 06-25-2023 History of Presen t illness Narrative EARLY VISIT Ivy Lincoln is a 33 year old here for 2 week visit. Some pain. Taking ibuprofen and tylenol and used all oxycodone Delivery Summary: C-s and tubal ROS: General: Denies any fever or chills Hypertension Screening: Headache? Yes. Was it successfully treated with Tylenol? No and not successfully treated with ibuprofen Visual Changes? No Epigastric Pain? No Increased Swelling? No Taking any BP medications at home? No If applicable, monitoring BP at home? (If Yes, include results) NA Mood: worried Depression: denies symptoms of depression. OB Depression and Anxiety Screening- This Encounter (since 06/24/2023) Over the past 2 weeks have you felt down, depressed, or hopeless? Negative Over the past two weeks, have you felt little interest or pleasure in doing things? Negative Feeling nervous, anxious or on edge 0-Not at all Not being able to stop or control worrying 1-Several days Anxiety Pre-Screening Total (If >/= 3 additional questions will be reviewed) 1 Feeding: Breast feeding problems: None Bladder: No dysuria, gross hematuria, urinary frequency, urinary urgency, or incontinence Bowel symptoms: Negative for abdominal discomfort, blood in stools or black stools and change in bowel habits Abdomen: She reports no incisional redness, tenderness, erythema Bleeding: light flow Bottom and Perineum: No issues Sleep: no sleep concerns and sleeps in bassinet/crib in parent's room, does not feel rested [place] since delivery: Not resumed Emotional support: Yes Exercise: N/A Other issues: None Reviewed above. Laly Chew MD PHYSICAL EXAMINATION: Wt 153 lb (69.4 kg) LMP 09/08/2022 (Approximate) Yes BMI 25.07 kg/m General: pleasant,female in no apparent distress, A&O x 3. Skin warm and intact. Breast: Deferred Abdomen: Deferred /Incision: No incisional redness, swelling, or drainage Pelvic: Deferred Bimanual: Deferred ASSESSMENT AND PLAN: 33 year old status post CS with normal course. Contraception plan: tubal ligation. Reinforced 6-week pelvic rest. Encouraged condom usage should patient deviate. Education: resources provided - see MA/RN note needs 2 hr gtt after 6 week PP Follow up: Follow-up with provider for 6 week visit and as needed Laly Chew MD documented in this encounter [facility] 2023 Hospital Discharg e instructions Additional Instructions Date of Discharge: 06/18/23 [facility] Work Phone: 2023 Discharge summary Note Date/Time 2023 7:29 am [facility] Medical Records Department [address] [place] [address] Discharge Summary 06/18/23 0725 MR#: [id number] Acct: [id number] Name: IVY LINCOLN Rep #:[id number] : 1990 32 From: Karlie Baez MD PCP: Dr. Halina Troncoso MD Status:ADM IN Location: WP [id number] Providers Date of Admission: 06/15/23 Date of Discharge: 06/18/23 Primary Care Physician: Dr. Halina Troncoso MD Reason For Visit: REPEAT Diagnosis Discharge Diagnosis (1) Status post : Status: Acute Code(s): Z98.891 - History of uterine scar from previous surgery Plan: d/c home (2) Transient hypertension of , : Status: Acute Code(s): O13.5 - Gestational [-induced] hypertension without significant proteinuria, complicating the puerperium Medications at Discharge Home Medications ibuprofen 600 mg tablet 600 mg PO Q6H #30 tabs 06/18/23 oxycodone 5 mg tablet 5 mg PO Q6H 1 week #7 tabs 06/18/23 Hospital Course Operations section Procedures None Summary of Care Provided Minutes Spent on Discharge: 22 Hospital Course: Scheduled repeat . Uncomplicated delivery. Transient HTN first day . Resolved with better pain management. Infant with elevated bili requiring light therapy. platelet clumping necessitating further observation. Infant OK for discharge Physical Exam Const alert General Appearance: cooperative GI GI Narrative: soft, moderate distention, fundus firm, appropriately tender. Abdominal bandageclean dry and intact Weight / BMI Weight Weight: 77.383 kg Body Mass Index (BMI) 27.5 ABG / Lab / Microbiology Data 06/16/23 05:05 D/C Instructions Discharge Diet: No restrictions May resume sexual activity in: 4-6 weeks Lifting Restrictions: 20 pounds Additional Activity Instructions: Nothing in the vagina for 4-6 weeks. You may return to work/school in 6 weeks. Call your doctor if your incision/area has: Continuous Slow Oozing, Sudden Increased Bleeding, Increased Pain/ Swelling, Increased Redness and Foul Smelling Discharge Call your doctor if you observe: Fever of 101 or Higher and Using more than 1 pad per hour (for 2 hours) Suture Line Care: Avoid Pulling/Pushing and Avoid Pinching/Bending Cleanse incision/area with: Keep Dressing Clean & Dry Please Follow Up With: Laly Chew MD When: Call to make an appointment for an incision check in 1-2 [phone]. You will need a post check in 6 weeks. Meaningful Use Info Meaningful Use Diagnoses (Choose all that apply): None applicable Discharge Plan Admission Admit Date/Time: 06/15/23 05:03 Primary Reason for Your Visit: scheduled Attending Provider: Laly Chew Primary Care Provider: Halina Troncoso Instructions Patient Instructions: Section Dc Discharge Orders/Prescriptions Prescriptions: New ibuprofen 600 mg Tablet 600 mg PO Q6H Qty: 30 1RF oxycodone 5 mg Tablet 5 mg PO Q6H 7 Days Qty: 7 0RF Discontinued valacyclovir [Valtrex] 1,000 MG tablet 1,000 mg PO BID Patient Comments: perineal lesions Referrals / Follow Up: Halina Troncoso MD [Primary Care Provider] - Karlie Baez MD [Med Staff - Active Staff] - Disposition Disposition (needs filled in before D/C Order can be placed): Home, Self Care 06/18/23728 <Electronically signed by Karlie Baez MD> Cosigner Signature (if applicable): CC: Dr. Halina Troncoso MD; Dr. Karlie Baez MD~ Signed [facility] Work Phone: 1(473) 104-808303-04-2024 Progress note Author Karlie Baez [facility] 2023 7:17am Note Date/Time 2023 7:17 am [facility] Medical Records Department [address] [place] [id number] Progress Note - OBGYN 2315 MR#: [id number] Acct: [id number] Name: IVY LINCOLN Rep #:[id number] : 1990 32 From: Karlie Baez MD PCP: Dr. Halina Troncoso MD Status:ADM IN Location: [id number] Subjective Subjective Doing well. Breast feeding is going well. Pain manageable but still feels she need oxy here and there. Objective Data Objective Data Vital Signs: Vital Signs Temp Pulse Resp BP Pulse Ox O2 Del Method 98.0 F 67 16 129/79 H 98 Room Air 06/18/23 01:38 06/18/23 01:38 06/18/23 01:38 06/18/23 01:38 06/17/23 08:26 06/18/23 01:38 Oxygen Delivery Method Room Air Weight: 77.383 kg Body Mass Index (BMI) 27.5 Intake & Output: Intake and Output for Last 24 Hours 06/16/23 06/17/23 06/18/23 23:59 23:59 23:59 Output Total 750 / 750 Balance -750 / -750 Lab / Micro Data 06/16/23 05:05 ROS Constitutional Constitutional: Denies fatigue, fever(s) or malaise Eyes Eyes: Denies change in vision ENT HEENT: Denies dizziness or headache(s) Cardiovascular Cardiovascular: Denies chest pain, dyspnea or lightheadedness Respiratory/Chest Respiratory/Chest: Denies cough or dyspnea Gastrointestinal Gastrointestinal: Denies change in bowel habits Genitourinary Genitourinary: Denies burning urination or genital lesions Integumentary Integumentary: Denies rash Neurologic Neurologic: Denies confusion, dizziness, headache(s), numbness or weakness Physical Exam Const alert General Appearance: cooperative GI GI Narrative: soft, moderate distention, fundus firm, appropriately tender. Abdominal bandageclean dry and intact Assessment & Plan (1) Status post : PLAN: d/c home (2) Transient hypertension of , : 2317 <Electronically signed by Karlie Baez MD> Cosigner Signature (if applicable): CC: ~ Signed [facility] Work Phone: 1(965) 390-725003-04-2024 [facility] Medical Records Department [address] [place] [id number] Discharge Summary 2325 MR#: [id number] Acct: [id number] Name: IVY LINCOLN Rep #: [id number] : 1990 32 From: Karlie Baez MD PCP: Dr. Halina Troncoso MD Status:ADM IN Location: [id number] Providers Date of Admission: 06/15/23 Date of Discharge: 06/18/23 Primary Care Physician: Dr. Halina Troncoso MD Reason For Visit: REPEAT Diagnosis Discharge Diagnosis (1) Status post : Status: Acute Code(s): Z98.891 - History of uterine scar from previous surgery Plan: d/c home (2) Transient hypertension of , : Status: Acute Code(s): O13.5 - Gestational [-induced] hypertension without significant proteinuria, complicating the puerperium Medications at Discharge Home Medications ibuprofen 600 mg tablet 600 mg PO Q6H #30 tabs 06/18/23 oxycodone 5 mg tablet 5 mg PO Q6H 1 week #7 tabs 06/18/23 Hospital Course Operations section Procedures None Summary of Care Provided Minutes Spent on Discharge: 22 Hospital Course: Scheduled repeat . Uncomplicated delivery. Transient HTN first day post . Resolved wi th better pain management. with elevated bili requiring light therapy. platelet clum ping necessitating further observation. Infant OK for discharge Physical Exam Const alert General Appearance: cooperative GI GI Narrative: soft, moderate distention, fundus firm, appropriately tender. Abdominal bandage clean dry and intact Weight / BMI Weight Weight: 77.383 kg Body Mass Index (BMI) 27.5 ABG / Lab / Microbiology Data 06/16/23 05:05 D/C Instructions Discharge Diet: No restrictions May resume sexual activity in: 4-6 weeks Lifting Restrictions: 20 pounds Additional Activity Instructions: Nothing in the vagina for 4-6 weeks. You may return to work/school in 6 weeks. Call your doctor if your incision/area has: Continuous Slow Oozing, Sudden Increased Bleeding, Increased Pain/ Swelling, Increased Redness and Foul Smelling Discharge Call your doctor if you observe: Fever of 101 or Higher and Using more than 1 pad per hour (for 2 hours) Suture Line Care: Avoid Pulling/Pushing and Avoid Pinching/Bending Cleanse incision/area with: Keep Dressing Clean Dry Please Follow Up With: Laly Chew MD When: Call to make an appointment for an incision check in 1-2 [phone]. You will need a post check in 6 weeks. Meaningful Use Info Meaningful Use Diagnoses (Choose all that apply): None applicable Discharge Plan Admission Admit Date/Time: 06/15/23 05:03 Primary Reason for Your Visit: scheduled Attending Provider: Laly Chew Primary Care Provider: Halina Troncoso Instructions Patient Instructions: Section Dc Discharge Orders/Prescriptions Prescriptions: New ibuprofen 600 mg Tablet 600 mg PO Q6H Qty: 30 1RF oxycodone 5 mg Tablet 5 mg PO Q6H 7 Days Qty: 7 0RF Discontinued valacyclovir [Valtrex] 1,000 MG tablet 1,000 mg PO BID Patient Comments: perineal lesions Referrals / Follow Up: Halina Troncoso MD [Primary Care Provider] - Karlie Baez MD [Med Staff - Active Staff] - Disposition Disposition (needs filled in before D/C Order can be placed): Home, Self Care 06/18/23 0729 Cosigner Signature (if applicable): CC: Dr. Halina Troncoso MD; Dr. Karlie [facility]aez [facility] Progress note Author Karlie Baez [facility] June 17, 2023 9:50am Note Date/Time June 17, 2023 9:50 am [facility] Medical Records Department [address] [place] [address] Progress Note - OBGYN 06/17/23 0947 MR#: [id number] Acct: [id number] Name: IVY LINCOLN Rep #:[id number] : 1990 32 From: Karlie Baez MD PCP: Dr. Halina Troncoso MD Status:ADM IN Location: [id number] Subjective Subjective Feeling better. BP back to normal range. Moderate lochia, Pain improving. Baby under bili lights yesterday. Monitoring platelets today. Breast feeding. Objective Data Objective Data Vital Signs: Vital Signs Temp Pulse Resp BP Pulse Ox O2 Del Method 98.7 F 66 78 H 125/75 H 98 Room Air 06/17/23 08:26 06/17/23 04:10 06/17/23 08:26 06/17/23 08:26 06/17/23 08:26 06/17/23 08:26 Oxygen Delivery Method Room Air Weight: 77.383 kg Body Mass Index (BMI) 27.5 Intake & Output: Intake and Output for Last 24 Hours 06/15/23 06/16/23 06/17/23 23:59 23:59 23:59 Intake Total 1959.17 / 195.17 Output Total 3150 / 3150 750 / 750 Balance -1190.83 / -1190.83 -750 / -750 Lab / Micro Data Attestation: I reviewed the patient's lab results. 06/16/23 05:05 Physical Exam Const alert General Appearance: cooperative GI GI Narrative: soft, moderate distention, fundus firm, appropriately tender. Abdominal bandageclean dry and intact Assessment & Plan (1) Previous delivery affecting , antepartum: (2) 39 weeks gestation of : (3) Transient hypertension of , : 06/17/23 0950 <Electronically signed by Karlie Baez MD> Cosigner Signature (if applicable): CC: ~ Signed [facility] Work Phone: 1(767) 860-614003-02-2024 Progress note Author Karlie Baez [facility] June 16, 2023 8:48am Note Date/Time June 16, 2023 8:48 am [facility] Medical Records Department [address] [place] [address] Progress Note - OBGYN 06/16/23 0846 MR#: [id number] Acct: [id number] Name: IVY LINCOLN Rep #:[id number] : 1990 32 From: Karlie Baez MD PCP: Dr. Halina Troncoso MD Status:ADM IN Location: [id number] Subjective Subjective Doing well. Bladder function improving. Light lochia. Pain controlled. Breast feeding well. Objective Data Objective Data Vital Signs: Vital Signs Temp Pulse Resp BP Pulse Ox O2 Del Method 98.2 F 74 14 128/88 H 100 Room Air 06/16/23 08:14 06/16/23 08:14 06/16/23 08:14 06/16/23 08:14 06/16/23 08:14 06/16/23 08:14 Oxygen Delivery Method Room Air Weight: 77.383 kg Body Mass Index (BMI) 27.5 Intake & Output: Intake and Output for Last 24 Hours 06/14/23 06/15/23 06/16/23 23:59 23:59 23:59 Intake Total 9.17 / 195.17 Output Total 3150 / 3150 750 / 750 Balance -1190.83 / -1190.83 -750 / -750 Lab / Micro Data Attestation: I reviewed the patient's lab results. 06/16/23 05:05 Labs: Laboratory Results - last 24 hr 06/15/23 05:20: Syphilis Total Ab Non-reactive, Blood Type O POSITIVE, Antibody Screen NEGATIVE 06/15/23 08:54: POC Glucose 84 06/16/23 05:02: POC Glucose 84 06/16/23 05:05: WBC 11.4 H, RBC 3.02 L, Hgb 9.7 L, Hct 29.5 L, MCV 97.7, MCH 32.1 H, MCHC 32.9, RDW Std Deviation 44.9 H, RDW Coeff of Dusty 13.0, Plt Count 172, MPV 10.8 Physical Exam Const alert General Appearance: cooperative GI GI Narrative: soft, moderate distention, fundus firm, appropriately tender. Abdominal bandageclean dry and intact Assessment & Plan (1) Previous delivery affecting , antepartum: (2) Sterilization: 06/16/23 0848 <Electronically signed by Karlie Baez MD> Cosigner Signature (if applicable): CC: ~ Signed [facility] Work Phone: 1(542) 801-847803-01-2024 NoteHNO ID: [id number] Author: KARLIE PRIETO RN Service: ? Author Type: Registered Nurse Type: Progress Notes Filed: 06/15/2023 16:17 Note Text: Patient delivered via C/S at [facility] on 06/15/23 per Laly Chew MD. See OB Outcome note. Karlie Prieto RNThe [facility]03-01-2024 History and physical note Author Laly Chew [facility] June 15, 2023 7:38am Note Date/Time May 24, 2023 1 0:58am [facility] Medical Records Department [address] [place] [address] History & Physical Exam 05/24/23 1056 MR#: [id number] Acct: [id number] Name: IVY LINCOLN Rep #:[id number] : 1990 32 From: Laly Chew MD PCP: Dr. Halina Troncoso MD Status:ADM IN Location: [id number] History and Physical Date of Admission: 06/15/23 HPI: The patient is a 32 year old female presenting for pre-operative visit. She is scheduled for and tubal steriilization for repeat c/s and sterilization on June 15 2023. Procedure discussed along with risks, benefits and complications. Other alternatives discussed for management. Consent form signed? Yes. ? ? PAST MEDICAL HISTORY PAST MEDICAL HISTORY Diagnosis Date ? Depression/anxiety ? ? Herpes simplex virus (HSV) infection ? ? Insulin controlled gestational diabetes mellitus (GDM) in third trimester 04/11/2023 ? ? PAST SURGICAL HISTORY PAST SURGICAL HISTORY Procedure Laterality Date ? SECTION HX ? 2017 ? LAPAROSCOPIC APPENDECTOMY ? 04/16/2015 ? NEXPLANON INSERTION ? ? ? removed ? ? ? CURRENT MEDICATIONS Current Outpatient Medications Medication Sig Dispense Refill ? blood sugar diagnostic test strip 1 Strip four times daily. Use as instructed 120 Strip 9 ? Lancets lancets 1 Each four times daily. Use as instructed 120 Each 9 ? famotidine (PEPCID) 20 mg tablet Take 1 tablet by mouth two times a day. 60 tablet 4 ? VIT 09-LVEZ-CHSPD-DHA ORAL Take by mouth. ? ? ? No current facility-administered medications for this visit. ? ? ALLERGIES: Patient has no known allergies. ? PERSONAL HISTORY: SOCIAL HISTORY Social History ? Tobacco Use ? Smoking status: Former ? ? Years: 5 ? ? Types: Cigarettes ? ? Quit date: 2015 ? ? Years since quittin.1 ? Smokeless tobacco: Never Vaping Use ? Vaping Use: Never used Substance Use Topics ? Alcohol use: Not Currently ? Drug use: Not Currently ? ? Types: Marijuana ? ? Comment: no use since October 2022 ? FAMILY HISTORY: FAMILY HISTORY FAMILY HISTORY Problem Relation Age of Onset ? other (gestational diabetes) Mother ? ? Thyroid Mother ? ? No Known Problems Father ? ? No Known Problems Sister ? ? No Known Problems Brother ? ? No Known Problems Brother ? ? Breast Cancer Maternal Grandmother ? ? Brain Cancer Maternal Grandmother ? ? Accidental Maternal Grandfather ? ? Heart Attack Paternal Grandmother ? ? Heart Attack Paternal Grandfather ? ? No Known Problems Son ? ? No Known Problems Daughter ? ? ? REVIEW OF SYMPTOMS: GENERAL: denies fevers or chills ENDOCRINOLOGY: has not been on steroids Cardiology : denies palpitations or chest pain Respiratory: denies SOB or cough Hematology: denies history of prolonged bleeding or easy bruising or VTE Allergy: Denies history of personal or family history of allergy to anesthesia ? PHYSICAL EXAMINATION: ? VITALS: Blood pressure 132/72, weight 168 lb (76.2 kg), last menstrual period 09/08/2022. ? GENERAL: The patient is well nourished, well hydrated in no acute distress. , The patient is oriented to time, place, and person. NECK: Supple. No lynphadenopathy, normal thyroid, no thyromegaly. LUNGS: Clear to auscultation bilaterally. no wheezes, rhonchi or rales HEART: Regular rate and rhythm, Normal heart sounds, and No murmurs or gallops abd- soft, nontender, gravid, appopriate for gestational age ? IMPRESSION: Estimated Date of Delivery: 06/19/23 ? PLAN: The risks/benefits/alternatives and personal involved for the planned delivery and tubal sterilization were reviewed with the patient. Her questions were answered to her satisfaction and she desires to proceed. Consentwas signed. I reviewed with her postop instructions and expectations. ? ? I have reviewed and updated past medical and surgical history, medications and allergies Assessment & Plan Assessment/Plan (1) 39 weeks gestation of : (2) Supervision of other high risk pregnancies, third trimester: (3) Previous delivery affecting , antepartum: (4) Sterilization: 05/24/23 1058 <Electronically signed by Laly Chew MD> Cosigner Signature (if applicable): CC: Dr. Halina Troncoso MD; Dr. Laly Chew MD~ Signed ADDENDUM by Dr. Laly Chew MD on 06/15/23 at 0738 Addendum UPDATE- I have seen the patient and performed any clinically relevant updates to the history and physical exam. 06/15/23 0738<Electronically signed by Laly Chew MD> Cosigner Signature (if applicable): cc: Dr. Halina Troncoso MD; Dr. Laly Chew MD ~* Signed [facility] Work Phone: 1(449) 610-435503-01-2024 Procedure [facility] 06-08-2023 Miscellaneous Notes* Quick Notes - Betsy Thomas APRN.CNM - 06/08/2023 11:21 AM EST S: Ivy Lincoln is a 32 year old female who presents at 06/19/2023, by Ultrasound for a routine visit. Denies headache, visual changes, chest pain, shortness of breath, vaginal bleeding, leakage of fluid, or dysuria. Feeling well, no complaints. Seen by general surgery last week and was told that hemorrhoid was too large to remove in office and will need surgically removed. Patient having relief from use of lidocaine . Positive movement. Denies any cramps or contractions. O: See flow sheet Gen: No apparent distress Abd: Gravid, non tender ASSESSMENT/PLAN: 1. 38 weeks gestation of - ICD9: V22.2, ICD10: Z3A.38 (primary diagnosis) - URINE OB DIP B/O 2. Diet controlled gestational diabetes mellitus (GDM) in third trimester - ICD9: 648.83, ICD10: O24.410 3. Supervision of high risk in third trimester - ICD9: V23.9, ICD10: O09.93 - Good control of blood sugars - Repeat C/S with tubal ligation scheduled for next week - Rubella - non immune- will need MMR - Labor precautions reviewed - RTO- 1 week post Betsy Thomas APRN.CNM documented in this encounterC[facility]02-[facility] Instructions* Patient Instructions* Margie Quach MA - 06/08/2023 11:11 AM EST SEQUENTIAL SCREENINGS The [facility] offers sequential screenings for women who are interested in screenings for chromosomal abnormalities and certain defects during a . The sequential screen combinesultrasound and blood tests to determine the risk of chromosomal abnormalities, including Down's Syndrome (Trisomy 21) and Trisomy 18, as well as open neural tube defects including spina bifida. Ultrasound examination is performed between 11 weeks and 13 weeks gestational age. Blood tests are drawn after the ultrasound and again later in the between 15 and 21 weeks gestational age. Please let your physician know if you are interested in this testing. It will require an appointment withour coding technician. This is not an ultrasound performed by a physician in our office during a routine visit. SIGNS AND SYMPTOMS OF LABOR 1. Contractions every 10 minutes or more often 2. Clear, pink, or brownish fluid (water) leaking from vagina 3. Feeling that baby is pushing down, pressure 4. Low, dull backache 5. Cramps that feel like a period 6. Cramps with or without diarrhea If you notice any of the above symptoms, contact our office at [phone] and ask to speak with anurse. After hours, you can call doctors registry at [phone] OR call [facility] at [phone] ask to have the doctor pressurised container filler paged. If you consider this an emergency, dial 91-3 or go to your nearest emergency department. NEED HELP? Are you dealing with a violent or abusive relationship? Are you a victim of rape or sexual assult? Call [facility] ([place]) 24 hour Crisis Hotline: 370.729.7082 or 725-189-9790. MANUAL Your Guide to a Healthy manual is now on-line. Visit [email or web address] to download your free copy documented in this encounterCleveland [facility]02-19-2024 Miscellaneous Notes* Telephone Encounter - Mayda Fritz LPN - 06/04/2023 1:52 PM EST Spoke with pt and notified her that the Anusol hc supp. Are not covered under insurance plan. Pt stated that she picked up her lidocaine cream last week and has been using this with some relief. Pt stated that if she felt that she needed more she would you good Rx to moss picker the suppositories. Mayda Fritz LPN * Telephone Encounter - Mayda Fritz LPN - 06/01/2023 4:26 PM EST Electronic PA submitted for Anusol HC. Will await further response from pt's insurance. Mayda Fritz LPN documented in this encounterCleveland [facility]02-16-2024 Miscellaneous Notes* Telephone Encounter - Mayda Fritz LPN - 06/01/2023 1:28 PM EST Pt notified. Mayda Fritz LPN * Telephone Encounter - Laly Chew MD - 06/01/2023 9:08 AM EST Is there something else covered? rx sent so I hope this works Laly Chew MD * Telephone Encounter - Mayda Fritz LPN - 06/01/2023 8:43 AM EST Received denial for Lidocaine HC cream. Please advise. Mayda Fritz LPN' * Telephone Encounter - Mayda Fritz LPN - 05/31/2023 1:13 PM EST Electronic PA submitted to pt's insurance for Lidocain-Hydrocort. Will await further response from pt's insurance. Mayda Fritz LPN documented in this encounterC[facility]02-15-2024 NoteHNO ID: [id number] Author: CRYSTAL SARMIENTO MD Service: ? Author Type: Physician Type: Progress Notes Filed: 06/11/2023 13:22 Note Text: HISTORY AND PHYSICAL Ivy Lincoln 1990 REFERRING PHYSICIAN: No ref. provider found CHIEF COMPLAINT: Consult and Hemorrhoids HPI: The patient is a 32 year old female with a complaint of External hemorrhoid, thrombosed (primary encounter diagnosis). Patient has been complaining of painful hemorrhoid she has been using lidocaine and hydrocortisone suppositories. This has been going on for greater than a week. She states it is slightly smaller. PAST MEDICAL HISTORY Diagnosis Date Depression/anxiety Herpes simplex virus (HSV) infection Insulin controlled gestational diabetes mellitus (GDM) in third trimester 04/11/2023 PAST SURGICAL HISTORY Procedure Laterality Date SECTION HX 2017 LAPAROSCOPIC APPENDECTOMY 04/16/2015 NEXPLANON INSERTION removed Current Outpatient Medications Medication Sig acyclovir (ZOVIRAX) 400 mg tablet Take 1 tablet by mouth two times a day. Lidocaine-Hydrocortisone Ac 3-0.5 % crea by RECTAL route two times a day as needed. famotidine (PEPCID) 20 mg tablet Take 1 tablet by mouth two times a day. VIT 49-VYTB-SUTEG-DHA ORAL Take by mouth. blood sugar diagnostic test strip 1 Strip four times daily. Use as instructed Lancets lancets 1 Each four times daily. Use as instructed No current facility-administered medications for this visit. ALLERGIES: Patient has no known allergies. PERSONAL HISTORY: Social History Tobacco Use Smoking status: Former Years: 5 Types: Cigarettes Quit date: 2015 Years since quittin.1 Smokeless tobacco: Never Vaping Use Vaping Use: Never used Substance Use Topics Alcohol use: Not Currently Drug use: Not Currently Types: Marijuana Comment: no use since October 2022 FAMILY HISTORY: FAMILY HISTORY Problem Relation Age of Onset other (gestational diabetes) Mother Thyroid Mother No Known Problems Father No Known Problems Sister No Known Problems Brother No Known Problems Brother Breast Cancer Maternal Grandmother Brain Cancer Maternal Grandmother Accidental Maternal Grandfather Heart Attack Paternal Grandmother Heart Attack Paternal Grandfather No Known Problems Son No Known Problems Daughter REVIEW OF SYMPTOMS: The review of systems data was entered by the nurse and reviewed by nm Nursing Notes: Sugar Diaz LPN 05/30/2023 2:34 PM Signed REVIEW OF SYSTEMS: General: The patient denies fatigue, denies weight loss, denies weight gain, denies feeling hot, and denies feelings of cold. Eyes: The patient denies glaucoma, denies eye injury/surgery, wears glasses or contacts. Ear/Nose/Throat: The patient denies allergies, denies hayfever, denies ear infections, and denies bloody noses. Cardiovascular: The patient denies chest pain, denies heart disease, denies high blood pressure,denies cardiac stent, denies prior heart attack, denies irregular heart beat, denies high cholesterol, denies poor circulation, denies heart failure, other cardiac issues, denies claudication, denies cold feet, denies peripheral arterial stent. Respiratory: The patient denies tuberculosis, denies pneumonia, denies frequent cough, denies pulmonary embolism, denies shortness of breath, and denies coughing up blood. Gastrointestinal: The patient denies difficulty swallowing, denies acid reflux, denies ulcers, denies vomiting, denies jaundice/hepatitis, denies gallbladder problems, denies black or tarry stools, NOTES hemorrhoids, denies bleeding from rectum, denies diverticulitis, denies constipation, denies diarrhea, denies loss of stool control, and denies hernias. Kidney/Bladder: The patient denies kidney stones, denies urine infections, and denies bloody urine. Skin: The patient denies a history of skin cancer, denies bleeding/changing moles, and denies a history of skin rash. Neurologic: The patient denies a history of epilepsy/convulsions, denies headaches, denies head/spinal injuries, and denies stroke/TIA. Psychiatric: The patient denies psychiatric medications, denies depression, and denies voices, denies substance abuse. Endocrine: The patient denies thyroid disorders, NOTES diabetes, and denies hormonal problems. Hematologic: The patient denies a history of bruising, denies bleeding, and denies anemia, denies blood clots. Infections: The patient denies a history of measles and mumps, denies rheumatic fever, and NOTES sexually transmitted diseases. Musculoskeletal: The patient denies back pain/injury, denies back problems, denies sciatica, denies knee/foot trouble, denies arthritis, or denies gout. When was patient's last Mammogram screening? N/A Last Colonoscopy: never Sugar Diaz LPN PHYSICAL EXAMINATION: General: The patient is 32 year old female, well nourished, well hydrated in no acute distress. (more content not included)...[facility] 05-30-2023 Miscellaneous Notes* Quick Notes - Laly Chew MD - 05/30/2023 10:51 AM EST RR- VB No. LOF No. CTXS No. Movement: present. Other c/o: hemorrhoids Medication list reviewed. 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 documented in this encounterC[facility]02-14-2024 Instructions* Patient Instructions* Lotus Vickers Sandra - 05/30/2023 10:37 AM EST SEQUENTIAL SCREENINGS The [facility] offers sequential screenings for women who are interested in screenings for chromosomal abnormalities and certain defects during a . The sequential screen combinesultrasound and blood tests to determine the risk of chromosomal abnormalities, including Down's Syndrome (Trisomy 21) and Trisomy 18, as well as open neural tube defects including spina bifida. Ultrasound examination is performed between 11 weeks and 13 weeks gestational age. Blood tests are drawn after the ultrasound and again later in the between 15 and 21 weeks gestational age. Please let your physician know if you are interested in this testing. It will require an appointment withour coding technician. This is not an ultrasound performed by a physician in our office during a routine visit. SIGNS AND SYMPTOMS OF LABOR 1. Contractions every 10 minutes or more often 2. Clear, pink, or brownish fluid (water) leaking from vagina 3. Feeling that baby is pushing down, pressure 4. Low, dull backache 5. Cramps that feel like a period 6. Cramps with or without diarrhea If you notice any of the above symptoms, contact our office at [phone] and ask to speak with anurse. After hours, you can call doctors registry at [phone] OR call [facility] at [phone] ask to have the doctor pressurised container filler paged. If you consider this an emergency, dial 9-6 or go to your nearest emergency department. NEED HELP? Are you dealing with a violent or abusive relationship? Are you a victim of rape or sexual assult? Call [facility] ([facility] 24 hour Crisis Hotline: 666.850.1693 or 146-319-9485. MANUAL Your Guide to a Healthy manual is now on-line. Visit [email or web address] to download your free copy documented in this encounterC[facility]02-08-2024 Miscellaneous Notes* Addendum Note - Laly Chew MD - 05/24/2023 10:56 AM ESTAddended by: LALY CHEW on: 05/24/2023 10:56 AM Modules accepted: Orders * Addendum Note - Steffi Chen Ma - 05/24/2023 10:28 AM ESTAddended by: STEFFI CHEN MA on: 05/24/2023 10:28 AM Modules accepted: Orders * Quick Notes - Laly Chew MD - 05/24/2023 10:15 AM EST RR- VB No. LOF No. CTXS No. Movement: present. Other c/o: No. Medication list reviewed. Physical Exam See Flow Sheet Abd: soft, nontender, gravid Ext: edema: Trace A/P 36w2d Estimated Date of Delivery: 06/19/23 Labs: GBS done previous c/s- plans repeat c/s and tubal GDM and S<D at last visit, US today normal AGA w/ normal fluid, reassured. BS log reviewed. Mostat target, continue to monitor closely kick counts. Consent for c/s Laly Chew M.D. documented in this encounterCleveland [facility]02-08-2024 [facility] Medical Records Department [address] [place] [address] History Physical Exam 05/24/23 1056 MR#: [id number] Acct: [id number] Name: IVY LINCOLN Rep #: [id number] : 1990 32 From: Laly Chew MD PCP: Dr. Halina Troncoso MD Status:ADM IN Location: WP [id number] History and Physical Date of Admission: 06/15/23 HPI: The patient is a 32 year old female presenting for pre-operative visit. She is scheduled for and tubal steriilization for repeat c/s and sterilization on June 15 2023. Procedure discussed along with risks, benefits and complications. Other alternatives discussed for management. Consent form signed? Yes. ? PAST MEDICAL HISTORY PAST MEDICAL HISTORY Diagnosis Date ??? Depression/anxiety ? Herpes simplex virus (HSV) infection ? Insulin controlled gestational diabetes mellitus (GDM) in third trimester 04/11/2023 ? PAST SURGICAL HISTORY PAST SURGICAL HISTORY Procedure Laterality Date ??? SECTION HX ??? 2017 ??? LAPAROSCOPIC APPENDECTOMY ??? 04/16/2015 ??? NEXPLANON INSERTION ? removed ? CURRENT MEDICATIONS Current Outpatient Medications Medication Sig Dispense Refill ??? blood sugar diagnostic test strip 1 Strip four times daily. Use as instructed 120 Strip 9 ??? Lancets lancets 1 Each four times daily. Use as instructed 120 Each 9 ??? famotidine (PEPCID) 20 mg tablet Take 1 tablet by mouth two times a day. 60 tablet 4 ??? VIT 47-KEDS-CJFZF-DHA ORAL Take by mouth. ? No current facility-administered medications for this visit. ? ALLERGIES: Patient has no known allergies. ??? PERSONAL HISTORY: SOCIAL HISTORY Social History ??? Tobacco Use ??? Smoking status: Former ? Years: 5 ? Types: Cigarettes ? Quit date: 2015 ? Years since quittin.1 ??? Smokeless tobacco: Never Vaping Use ??? Vaping Use: Never used Substance Use Topics ??? Alcohol use: Not Currently ??? Drug use: Not Currently ? Types: Marijuana ? Comment: no use since October 2022 ??? FAMILY HISTORY: FAMILY HISTORY FAMILY HISTORY Problem Relation Age of Onset ??? other (gestational diabetes) Mother ? Thyroid Mother ? No Known Problems Father ? No Known Problems Sister ? No Known Problems Brother ? No Known Problems Brother ? Breast Cancer Maternal Grandmother ? Brain Cancer Maternal Grandmother ? Accidental Maternal Grandfather ? Heart Attack Paternal Grandmother ? Heart Attack Paternal Grandfather ? No Known Problems Son ? No Known Problems Daughter ? REVIEW OF SYMPTOMS: GENERAL: denies fevers or chills ENDOCRINOLOGY: has not been on steroids Cardiology : denies palpitations or chest pain Respiratory: denies SOB or cough Hematology: denies history of prolonged bleeding or easy bruising or VTE Allergy: Denies history of personal or family history of allergy to anesthesia ??? PHYSICAL EXAMINATION: ??? VITALS: Blood pressure 132/72, weight 168 lb (76.2 kg), last menstrual period 09/08/2022. ??? GENERAL: The patient is well nourished, well hydrated in no acute distress. , The patient is oriented to time, place, and person. NECK: Supple. No lynphadenopathy, normal thyroid, no thyromegaly. LUNGS: Clear to auscultation bilaterally. no wheezes, rhonchi or rales HEART: Regular rate and rhythm, Normal heart sounds, and No murmurs or gallops abd- soft, nontender, gravid, appopriate for gestational age ??? IMPRESSION: Estimated Date of Delivery: 06/19/23 ??? PLAN: The risks/benefits/alternatives and personal involved for the planned delivery and tubal sterilization were reviewed with the patient. Her questions were answered to her satisfaction and she desires to proceed. Consent was signed. I reviewed with her postop instructions and expectations. ? I have reviewed and updated past medical and surgical history, medications and allergies Assessment Plan Assessment/Plan (1) 39 weeks gestation of : (2) Supervision of other high risk pregnancies, third trimester: (3) Previous delivery affecting , antepartum: (4) Sterilization: 05/24/23 1058 Cosigner Signature (if applicable): CC: Dr. Halina Troncoso MD; Dr. Laly Chew MD Signed ADDENDUM by Dr. Laly Chew MD on 06/15/23 at 0738 Addendum UPDATE- I have seen the patient and performed any clinically relevant updates to the history and physical exam. 06/15/23 0738 Cosigner Signature (if applicable): cc: Dr. Halina Troncoso MD; Dr. Laly Chew MD * [facility]igned[facility] History and physical note* Laly Chew MD - 05/24/2023 10:20 AM EST Pre-Op History and Physical HPI: The patient is a 32 year old female presenting for pre-operative visit. She is scheduled for and tubal steriilization for repeat c/s and sterilization on June 15 2023. Procedure discussed along with risks, benefits and complications. Other alternatives discussed for management. Consent form signed? Yes. PAST MEDICAL HISTORY Diagnosis Date Depression/anxiety Herpes simplex virus (HSV) infection Insulin controlled gestational diabetes mellitus (GDM) in third trimester 04/11/2023 PAST SURGICAL HISTORY Procedure Laterality Date SECTION HX 2017 LAPAROSCOPIC APPENDECTOMY 04/16/2015 NEXPLANON INSERTION removed Current Outpatient Medications Medication Sig Dispense Refill blood sugar diagnostic test strip 1 Strip four times daily. Use as instructed 120 Strip 9 Lancets lancets 1 Each four times daily. Use as instructed 120 Each 9 famotidine (PEPCID) 20 mg tablet Take 1 tablet by mouth two times a day. 60 tablet 4 VIT 71-CLMM-OXAEH-DHA ORAL Take by mouth. No current facility-administered medications for this visit. ALLERGIES: Patient has no known allergies. PERSONAL HISTORY: Social History Tobacco Use Smoking status: Former Years: 5 Types: Cigarettes Quit date: 2015 Years since quittin.1 Smokeless tobacco: Never Vaping Use Vaping Use: Never used Substance Use Topics Alcohol use: Not Currently Drug use: Not Currently Types: Marijuana Comment: no use since October 2022 FAMILY HISTORY: FAMILY HISTORY Problem Relation Age of Onset other (gestational diabetes) Mother Thyroid Mother No Known Problems Father No Known Problems Sister No Known Problems Brother No Known Problems Brother Breast Cancer Maternal Grandmother Brain Cancer Maternal Grandmother Accidental Maternal Grandfather Heart Attack Paternal Grandmother Heart Attack Paternal Grandfather No Known Problems Son No Known Problems Daughter REVIEW OF SYMPTOMS: GENERAL: denies fevers or chills ENDOCRINOLOGY: has not been on steroids Cardiology : denies palpitations or chest pain Respiratory: denies SOB or cough Hematology: denies history of prolonged bleeding or easy bruising or VTE Allergy: Denies history of personal or family history of allergy to anesthesia PHYSICAL EXAMINATION: VITALS: Blood pressure 132/72, weight 168 lb (76.2 kg), last menstrual period 09/08/2022. GENERAL: The patient is well nourished, well hydrated in no acute distress. , The patient is oriented to time, place, and person. NECK: Supple. No lynphadenopathy, normal thyroid, no thyromegaly. LUNGS: Clear to auscultation bilaterally. no wheezes, rhonchi or rales HEART: Regular rate and rhythm, Normal heart sounds, and No murmurs or gallops abd- soft, nontender, gravid, appopriate for gestational age IMPRESSION: Estimated Date of Delivery: 06/19/23 PLAN: The risks/benefits/alternatives and personal involved for the planned delivery and tubal sterilization were reviewed with the patient. Her questions were answered to her satisfaction and she desires to proceed. Consent was signed. I reviewed with her postop instructions and expectations. I have reviewed and updated past medical and surgical history, medications and allergies Laly Chew M.D. documented in this encounterC[facility] Instructions* Patient Instructions* Mamie Laura LPN - 05/24/2023 9:55 AM EST SEQUENTIAL SCREENINGS [facility] offers sequential screenings for women who are interested in screenings for chromosomal abnormalities and certain defects during a . The sequential screen combinesultrasound and blood tests to determine the risk of chromosomal abnormalities, including Down's Syndrome (Trisomy 21) and Trisomy 18, as well as open neural tube defects including spina bifida. Ultrasound examination is performed between 11 weeks and 13 weeks gestational age. Blood tests are drawn after the ultrasound and again later in the between 15 and 21 weeks gestational age. Please let your physician know if you are interested in this testing. It will require an appointment withour coding technician. This is not an ultrasound performed by a physician in our office during a routine visit. SIGNS AND SYMPTOMS OF LABOR 1. Contractions every 10 minutes or more often 2. Clear, pink, or brownish fluid (water) leaking from vagina 3. Feeling that baby is pushing down, pressure 4. Low, dull backache 5. Cramps that feel like a period 6. Cramps with or without diarrhea If you notice any of the above symptoms, contact our office at [phone] and ask to speak with anurse. After hours, you can call doctors registry at [phone] OR call [facility] at [phone] ask to have the doctor pressurised container filler paged. If you consider this an emergency, dial 9-1-7 or go to your nearest emergency department. NEED HELP? Are you dealing with a violent or abusive relationship? Are you a victim of rape or sexual assult? Call [facility] ([place]) 24 hour Crisis Hotline: 399.948.9482 or 877-928-3936. MANUAL Your Guide to a Healthy manual is now on-line. Visit [email or web address] to download your free copy documented in this encounterC[facility]01-[facility] NoteHNO ID: [id number] Author: SIVA MORENO RD Service: ? Author Type: Registered Dietitian Type: Progress Notes Filed: 05/07/2023 11:59 Note Text: [facility] Nutrition Therapy: Virtual Consult - Initial Assessment I have communicated my name and active licensure. The patient?s identity and physical location were verified at the time of this visit. Either the patient or their legal containers sales representative has been informed of the risks and benefits of -- and alternatives to -- treatment through a remote evaluation and consents to proceed with the evaluation remotely. Nutrition Diagnosis: Altered nutrition-related lab values, related to, and endocrine dysfunction, as evidenced by elevated glucose tolerance test . RECOMMENDED MALNUTRITION DIAGNOSIS: NO MALNUTRITION IDENTIFIED NUTRITION CARE PLAN Nutrition Intervention 05/07/2023: modify type and amount of food or beverage Goals: Fasting glucose <95 mg/dL; 1 hr glucose ,140 mg/dL, 2 hr glucose ,120 mg/dL; mean glucose of 86 mg/dL. 1. Distribute carbohydrate evening throught out the day, Choose whole grain starches and grains, avoid white and refined grains and sources of concentration sugars . Carbohydrates are the starches, fruits and milk group and is defined as 15 grams per serving/choice. 2. Keep breakfast at 15-30 grams carbohydrate; meals 30-45 grams and snacks 15-grams of carbohydrate, include healthy protein in meals and snacks. 3. Distribute meals and snacks every 2-3 hours. 4. Aim for 25-35 grams of fiber. 5. Limit saturated fat, choose lean proteins, healthy fast such as olive oil, canola oil, avocados, nuts/seeds, etc. 6. . Daily exercise of 30-60 minutes ; a 10 min walk or exercise session can help bring post meal blood sugar controlled 7. Choose a high fiber low sugar cereal such Kashi, All Bran, Fiber one, Shredded Wheat, Cheerios; change to Fair live, handful of berries, For bread change to whole grain, look for sugar free syrup; Look for [place] cakes/whole grain pancakes; For snack at night look for a no added sugar low low fat frozen yogurt or ice cream or triple zero Nigerien yogurt or sugar free pudding Ensure good sources of magnesium from a variety of seeds and dark greens such as spinach and turkmen chard; soybeans and nuts almonds and chashews. Ensure good sources of zinc from lean beef, pumpkin and squash seeds, dark chocolate and cocoa powder, and peanuts Ensure good sources of Folic Acid from a variety of dark greens and seeds; soy beans and thapa sprouts. Beans such as Higgins, garbonzo and mung; asparagus and peanuts Ensure adequate vit D-fatty fish, fortified cereal and soy products, meats, dairy products, eggs and mushrooms Ensure adequate H03-reai fatty fish, seafood and meats; cheese and eggs Ensure adequate sources of omega 3 fatty acids from fatty fish, teodora and flax seeds and eggs Ensure adequate calcium-aim for 3-4 servings of low fat/fat free dairy daily. Aim for moderate exercise regularly-continue to do regular activities. May need to change activities during avoiding high impact and higher stress activities. Nutrition Monitoring AND Evaluation: blood sugars in target range Need for Follow up: 3 weeks or as needed Patient presents for initial MNT as relates to gestational diabetes now at 33 weeks. Prepregnancy weight 140 lbs for approx 25 lb gain. States inducement planned in 4 weeks. Has been monitoring blood sugars at ~1-1.5 hour post prandial; if closer to 90 min post prandial numbers above target; fasting in target range. Intake noted for high sugar, high carb intake. Includes sweets, reg soda and sugar in coffee. Is active during the day but no regular exercise. Patient's symptoms are: elevated blood sugars. Diet History: High 70-high 80's Breakfast - cereal, (kid cereal)/2% white home made kiswahili toast/ pancakes with syrup, banana or orange, coffee with 1 tps sugar and 1-2 coffee creamers and water One hour after: 110-120- usually 130-140 Snack - usually - left overs from dinner Lunch - salads with veggies, ranch; water, Like breakfast Snack - popcorn, occ chips n dip; plain Nigerien yogurt Twix bar cut up) Dinner - roast with carrots, mushroom, potatoes,; stuffed shells; tacos; ; water Closer to 140 range Snack - ice cream cone Beverages - water, coffee, Pepsi (reg/yesterday did have zero sugar Pepsi) Alcohol- no Vitamins/Supplements - , Activity: Activities of Daily Living: Active 50% of the day. 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 Resting Metabolic Rate: 1469 Mal (more content not included)...[facility]01-17-[facility]24 NoteHNO ID: [id number] Author: COLLETTE TRONCOSO RN Service: ? Author Type: Registered Nurse Type: Progress Notes Filed: 05/02/2023 09:31 Note Text: DIABETES SELF-MANAGEMENT EDUCATION AND SUPPORT Location: [place] Type of visit: Virtual (with video) individual I have communicated my name and active licensure. The patient's identity and physical location were verified at the time of this visit. Either the patient or their legal containers sales representative has been informed of the risks and benefits of -- and alternatives to -- treatment through a remote evaluation and consents to proceed with the evaluation remotely. Types of DSMES: Initial/Comprehensive (add to or update ADA spreadsheet) PATIENT'S MAIN CONCERN TODAY: GDM diagnosis Support person present for education today: none Cognitive ability: Alert and oriented Motivation to learn: Interested Learning barriers identified by educator: none Method of instruction: written, verbal, and demonstration INTERVENTIONS/TOPICS COVERED: reports she is checking and the numbers have been between 100-140 1 hr post meal at this time -Diabetes Pathophysiology: gestational diabetes basics -Monitoring: BG targets and rationale for HGM -Healthy Eating: foods with carbs and reading food labels -Medications: reviewed insulin - 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 No What are you hoping to gain from this visit? asked/not answered In your words, what is gestational diabetes? Sugar was high when they did the test What concerns you about having gestational diabetes? asked/not answered Diabetes History: Type of Diabetes: Gestational ( diabetes in ) How far along is your ? 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 never How often does someone help you read your pill bottles? never How often does someone have to help you take care of your diabetes? never Major stressors:asked/not answered How do you manage stress? asked/not answered Do any of the following things get in the way of managing your diabetes? No self-identified issues Health History: Do you use tobacco? No Do you use alcohol? No In the past 12 months have you had any: Hospital Admissions: No ER Visits: No Primary Care Visits: Asked/not answered What are your general feelings about you overall health? Good Medical Issues/Complications: To whom are you reporting your blood sugar levels? OB PAST MEDICAL HISTORY Diagnosis Date Depression/anxiety Herpes simplex virus (HSV) infection Insulin controlled gestational diabetes mellitus (GDM) in third trimester 04/11/2023 Most recent A1C No results found for: HBA1C Physical Activity: Do you do a regular exercise? Asked/not answered Sleep: Do you get at least 7 hrs of sleep most nights? yes Current Outpatient Medications Medication Sig blood sugar diagnostic test strip 1 Strip four times daily. Use as instructed Lancets lancets 1 Each four times daily. Use as instructed famotidine (PEPCID) 20 mg tablet Take 1 tablet by mouth two times a day. VIT 53-CQRS-OJNOS-DHA ORAL Take by mouth. No current facility-administered medications for this visit. Injections Technique: Do you take insulin or a medication you inject for your diabetes? No Blood Sugar Monitoring: Do you have a blood sugar monitor? Yes; How often do you check? 4x per day When you check? Before breakfast and 1 hr post meals. Do you log your blood sugars? Yes. Where do you throw away your lancets? Not addressed EDUCATION HANDOUTS: Reviewed how to download a copy of thee GDM book LEARNING RESPONSE: Diabetes pathophysiology: Demonstrated understanding/competency today or at previous visit Healthy eating: Demonstrated understanding/competency today or at previous visit Being active: Demonstrated understanding/competency today or at previous visit Taking medications: Demonstrated understanding/competency today or at previous visit Monitoring glucose: Demonstrated understanding/competency today or at previous visit Acute complications: Demonstrated understanding/competency today or at previous visit Chronic complications: Not assessed at the visit Healthy coping: Not assessed at the visit Diabetes distress and support: Demonstrated understanding/competency today or at previous visit PATIENT SELECTED THE (more content not included)...[facility] 04-11-2023 History of Past illness Narrative* Problem Noted Date Diagnosed Date Resolved Date Insulin controlled gestation al diabetes mellitus (GDM) in third trimester 04/11/20232023 Abnormal glucose complicating 03/29/2023 06/25/2023 Request for sterilization 01/18/2023 Overview: 01/18/23 Sign title 19. SW Encounter for supervision of other normal , second trimester 01/16/2023 06/25/2023 Overview: 01/16/2023 She is transferring care from [place]. We have received her medical records from there and they are sent to Dr. Feng's office for review. She had an initial OB visit on November 21, 2022 with an ultrasound. Has not been seen in their office since then. TKRN History of delivery , currently 01/16/2023 06/25/2023 Overview: 01/16/2023She has a history of a vaginal followed by a due to suspected HSV outbreak. Patient states she has had outbreaks since that delivery.TKRN History of herpes genitalis 01/16/2023 06/25/2023 Family history of muscular dystrophy 01/16/2023 06/25/2023 Overview: 01/18/2023 Pt report genetic testing was completed and the mother is the carrier. SW 01/16/2023 Father of the baby's nephew with muscular dystrophy. Patient states she does not believe her partner has had any carrier screening testing. Patient does not believe she has had any genetic carrier screening testing as well.we will check with partner. TKRN documented as of this encounter (statuses as of 06/25/2023) [facility]12-27-[facility] History of Past illness Narrative* Problem Noted Date Diagnosed Date Resolved Date Insulin controlled gestation al diabetes mellitus (GDM) in third trimester 04/11/20232023 Abnormal glucose complicating 03/29/2023 06/25/2023 Request for sterilization 01/18/2023 Overview: 01/18/23 Sign title 19. SW Encounter for supervision of other normal , second trimester 01/16/2023 06/25/2023 Overview: 01/16/2023 She is transferring care from [place]. We have received her medical records from there and they are sent to Dr. Feng's office for review. She had an initial OB visit on November 21, 2022 with an ultrasound. Has not been seen in their office since then. TKRN History of delivery , currently 01/16/2023 06/25/2023 Overview: 01/16/2023She has a history of a vaginal followed by a due to suspected HSV outbreak. Patient states she has had outbreaks since that delivery.TKRN History of herpes genitalis 01/16/2023 06/25/2023 Family history of muscular dystrophy 01/16/2023 06/25/2023 Overview: 01/18/2023 Pt report genetic testing was completed and the mother is the carrier. SW 01/16/2023 Father of the baby's nephew with muscular dystrophy. Patient states she does not believe her partner has had any carrier screening testing. Patient does not believe she has had any genetic carrier screening testing as well.we will check with partner. TKRN documented as of this encounter (statuses as of 07/20/2023) [facility]12-[facility] History of Past illness Narrative* Problem Noted Date Diagnosed Date Resolved Date Insulin controlled gestation al diabetes mellitus (GDM) in third trimester 04/11/20232023 Abnormal glucose complicating 03/29/2023 06/25/2023 Request for sterilization 01/18/2023 Overview: 01/18/23 Sign title 19. SW Encounter for supervision of other normal , second trimester 01/16/2023 06/25/2023 Overview: 01/16/2023 She is transferring care from [place]. We have received her medical records from there and they are sent to Dr. Feng's office for review. She had an initial OB visit on November 21, 2022 with an ultrasound. Has not been seen in their office since then. TKRN History of delivery , currently 01/16/2023 06/25/2023 Overview: 01/16/2023Shbethel has a history of a vaginal followed by a due to suspected HSV outbreak. Patient states she has had outbreaks since that delivery.TKRN History of herpes genitalis 01/16/2023 06/25/2023 Family history of muscular dystrophy 01/16/2023 06/25/2023 Overview: 01/18/2023 Pt report genetic testing was completed and the mother is the carrier. SW 01/16/2023 Father of the baby's nephew with muscular dystrophy. Patient states she does not believe her partner has had any carrier screening testing. Patient does not believe she has had any genetic carrier screening testing as well.we will check with partner. TKRN documented as of this encounter (statuses as of 07/25/2023) [facility]12[facility] History of Past illness Narrative* Problem Noted Date Diagnosed Date Resolved Date Insulin controlled gestation al diabetes mellitus (GDM) in third trimester 04/11/20232023 Abnormal glucose complicating 03/29/2023 06/25/2023 Request for sterilization 01/18/2023 Overview: 01/18/23 Sign title 19. SW Encounter for supervision of other normal , second trimester 01/16/2023 06/25/2023 Overview: 01/16/2023 She is transferring care from [place]. We have received her medical records from there and they are sent to Dr. Feng's office for review. She had an initial OB visit on November 21, 2022 with an ultrasound. Has not been seen in their office since then. TKRN History of delivery , currently 01/16/2023 06/25/2023 Overview: 01/16/2023Jyothi has a history of a vaginal followed by a due to suspected HSV outbreak. Patient states she has had outbreaks since that delivery.TKRN History of herpes genitalis 01/16/2023 06/25/2023 Family history of muscular dystrophy 01/16/2023 06/25/2023 Overview: 01/18/2023 Pt report genetic testing was completed and the mother is the carrier. SW 01/16/2023 Father of the baby's nephew with muscular dystrophy. Patient states she does not believe her partner has had any carrier screening testing. Patient does not believe she has had any genetic carrier screening testing as well.we will check with partner. TKRN documented as of this encounter (statuses as of 07/31/2023) [facility]12-14-2023 Miscellaneous Notes* Telephone Encounter - Lucy Wilkins RN - 03/29/2023 10:31 AM EST Patient notified and scheduled lab appointment. LUCY WILKINS RN * Telephone Encounter - Mamie Laura LPN - 03/29/2023 10:10 AM EST Left message to call office * Telephone Encounter - Mamie Laura LPN - 03/29/2023 10:07 AM EST ----- Message from Laly Chew MD sent at 03/29/2023 9:54 AM EST ----- Abnormal 1 hr. Needs 3hr gtt. Order entered. Other labs ok. Notify paitent. Kalie Chew MD documented in this encounterC[facility]12[facility] NoteHNO ID: [id number] Author: Ivy Elliott Ma Service: ? Author Type: ? Type: Progress Notes Filed: 03/27/2023 11:20 AM Note Text: Patient identified by name and date of . Ivy Lincoln presents today for a vaccination of Tdap. Patient denies an allergy to latex: yes Patient denies a severe (life-threatening) allergy to a previous dose of Tdap, DTP, DTaP, DT or Td vaccine. 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 See immunizations for details of immunizations administered today. VIS sheet provided: Yes Patience Villarreal MD was present at time of injection.[facility] 03-27-2023 Miscellaneous Notes* Quick Notes - Patience Villarreal MD - 03/27/2023 11:00 AM EST KJ - VB No. LOF No. CTXS No. Movement: present. Other c/o: Yes: GI: heartburn. Medication list reviewed. Physical Exam See Flow Sheet Gen: no accute distress, well appearing Abd: soft, nontender, gravid A/P 28w0d Estimated Date of Delivery: 06/19/23 GERD - pepcid rx sent 28wk labs Tdap today Declines LARC as plans PP tubal sterilization MOD - repeat PTL precautions reviewed, Kick counts reviewed. Patience Villarreal MD documented in this encounterC[facility]12[facility] History of Present illness Narrative* Ivy Elliott Ma - 03/27/2023 10:52 AM EST Patient identified by name and date of . Ivy Lincoln presents today for a vaccination of Tdap. Patient denies an allergy to latex: yes Patient denies a severe (life-threatening) allergy to a previous dose of Tdap, DTP, DTaP, DT or Td vaccine. 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 See immunizations for details of immunizations administered today. VIS sheet provided: Yes Patience Villarreal MD was present at time of injection. documented in this encounterC[facility]12[facility] Instructions* Patient Instructions* Ivy Elliott Ma - 03/27/2023 10:47 AM EST SEQUENTIAL SCREENINGS [facility] offers sequential screenings for women who are interested in screenings for chromosomal abnormalities and certain defects during a . The sequential screen combinesultrasound and blood tests to determine the risk of chromosomal abnormalities, including Down's Syndrome (Trisomy 21) and Trisomy 18, as well as open neural tube defects including spina bifida. Ultrasound examination is performed between 11 weeks and 13 weeks gestational age. Blood tests are drawn after the ultrasound and again later in the between 15 and 21 weeks gestational age. Please let your physician know if you are interested in this testing. It will require an appointment withour coding technician. This is not an ultrasound performed by a physician in our office during a routine visit. SIGNS AND SYMPTOMS OF LABOR 1. Contractions every 10 minutes or more often 2. Clear, pink, or brownish fluid (water) leaking from vagina 3. Feeling that baby is pushing down, pressure 4. Low, dull backache 5. Cramps that feel like a period 6. Cramps with or without diarrhea If you notice any of the above symptoms, contact our office at [phone] and ask to speak with anurse. After hours, you can call doctors registry at [phone] OR call [facility] at [phone] ask to have the doctor pressurised container filler paged. If you consider this an emergency, dial 5-3-6 or go to your nearest emergency department. NEED HELP? Are you dealing with a violent or abusive relationship? Are you a victim of rape or sexual assult? Call [facility] ([facility] 24 hour Crisis Hotline: 943.921.1094 or 164-197-5013. MANUAL Your Guide to a Healthy manual is now on-line. Visit [email or web address] to download your free copy documented in this encounterCleveland [id number] Miscellaneous Notes* Quick Notes - Laly Chew MD - 02/27/2023 3:43 PM EST RR- VB No. LOF No. CTXS No. Movement: present. Other c/o: No. Medication list reviewed. Physical Exam See Flow Sheet Abd: soft, nontender, gravid Ext: edema: Trace A/P 24w0d Estimated Date of Delivery: 06/19/23 Labs: 28 week labs next visit cont. PNV previous c/s- plans repeat contraception counseling- desires tubal Risks, benefits and alternatives to sterilization have been discussed with the patient. She declines reversible options including LARC. She understands sterilization is permanent, irreversible, risksof failure, regret and ectopic. In addition she understands there are surgical risks as well. Her questions were answered to her satisfaction and consent was signed title 19 signed. declines flu vaccine Laly Chew M.D. documented in this encounterCleveland [facility] Instructions* Patient Instructions* Ivy Elliott Ma - 02/27/2023 2:49 PM EST SEQUENTIAL SCREENINGS [facility] offers sequential screenings for women who are interested in screenings for chromosomal abnormalities and certain defects during a . The sequential screen combinesultrasound and blood tests to determine the risk of chromosomal abnormalities, including Down's Syndrome (Trisomy 21) and Trisomy 18, as well as open neural tube defects including spina bifida. Ultrasound examination is performed between 11 weeks and 13 weeks gestational age. Blood tests are drawn after the ultrasound and again later in the between 15 and 21 weeks gestational age. Please let your physician know if you are interested in this testing. It will require an appointment withour coding technician. This is not an ultrasound performed by a physician in our office during a routine visit. SIGNS AND SYMPTOMS OF LABOR 1. Contractions every 10 minutes or more often 2. Clear, pink, or brownish fluid (water) leaking from vagina 3. Feeling that baby is pushing down, pressure 4. Low, dull backache 5. Cramps that feel like a period 6. Cramps with or without diarrhea If you notice any of the above symptoms, contact our office at [phone] and ask to speak with anurse. After hours, you can call doctors registry at [phone] OR call [facility] at [phone] ask to have the doctor pressurised container filler paged. If you consider this an emergency, dial 9--1 or go to your nearest emergency department. NEED HELP? Are you dealing with a violent or abusive relationship? Are you a victim of rape or sexual assult? Call [facility] ([place]) 24 hour Crisis Hotline: 276.603.8852 or 658-140-6445. MANUAL Your Guide to a Healthy manual is now on-line. Visit [email or web address] to download your free copy documented in this encounterCleveland [facility]10-05-2023 NoteHNO ID: [id number] Author: Rachel Feng MD Service: ? Author Type: Physician Type: Progress Notes Filed: 01/19/2023 6:57 PM Note Text: INITIAL OB ASSESSMENT OB Provider: Ubaldo Pollard RN HPI: Ivy is a 32 year old White here to establish Obstetrical Care. Patient's last menstrual period was 09/08/2022 (approximate). from OB Dating Form. 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 # 3 - Date: None, Sex: None, Weight: None, GA: None, Delivery: None, Apgar1: None, Apgar5: None, Living: None, Comments: None Previous history: Prior : yes x 1 History of 4th degree laceration: No History of shoulder dystocia: No History of Hypertensive disorders including pre-eclampsia, chronic hypertension or gestational hypertension: No History of gestational diabetes: No Patient's Risk Screening for delivery: Have you had a prior kraft between 20w and 36w6d?: No MEDICAL/PSYCHOSOCIAL HISTORY: History of hemorrhage or bleeding concerns: No Thyroid Disease: No History of chronic hypertension: No History of pre-existing diabetes: No No results found for: ABORHD No weight on file for this encounter. History of abnormal pap: No Prior treatment for cervical dysplasia: none. 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 I don't have enough money to pay my bills: Never Within the past 12 months, have you worried that your food would run out before you had money to buy more: Never In the past 12 months, has lack of reliable transportation kept you from going to medical appointments or work, or from keeping things needed for daily living: Never In the past 12 months, have you had any concerns about having a place to live, or about the condition or quality of your housing: Never Are there any cultural or spiritual needs we should be aware of: No Depression/Anxiety Screening: admits to symptoms of depression. OB Depression and Anxiety Screening- This Encounter (since 01/15/2023) Over the past 2 weeks have you felt down, depressed, or hopeless? Negative Over the past two weeks, have you felt little interest or pleasure in doing things?? Positive - Further Testing Indicated I have been able to laugh and see the funny side of things. As much as I always could I have looked forward with enjoyment to things. As much as I ever did I have blamed myself unnecessarily when things went wrong. No, never I have been anxious or worried for no good reason. Yes, sometimes I have felt scared or panicky for no good reason. No, not at all Things have been getting on top of me. No, most of the time I have coped quite well I have been so unhappy that I have had difficulty sleeping. Not at all I have felt sad or miserable. No, not at all I have been so unhappy that I have been crying. No, never The thought of harming myself has occurred to me. Never [place] Depression Scale Total 3 Feeling nervous, anxious or on edge 1-Several days Not being able to stop or control worrying 1-Several days Anxiety Pre-Screening Total (If >/= 3 additional questions will be reviewed) 2 Genetic Screening: Partner present: No Patient verbalized knowledge of partner family health history: No Do you or your partner have any personal or family history of defects not previously discussed: No Do you have history of a complicated by anomaly, genetic condition, or demise: No ACOG Recommended Screening Screening for early gestational diabetes testing: Criteria for early testing requires elevated BMI plus one other risk factor: No weight on file for this encounter. (risk factor if > than 25 or 23 in Americans) Additional risk factors: First-degree relative with diabetes She does not meet ACOG criteria for early gestational (more content not included)...[facility]10-03-2023 NoteHNO ID: [id number] Author: Ubaldo Pollard RN Service: ? Author Type: ? Type: Progress Notes Filed: 01/16/2023 12:43 PM Note Text: INITIAL OB ASSESSMENT OB Provider: Ubaldo Pollard RN HPI: Ivy is a 32 year old White here to establish Obstetrical Care. Patient's last menstrual period was 09/08/2022 (approximate). from OB Dating Form. 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 # 3 - Date: None, Sex: None, Weight: None, GA: None, Delivery: None, Apgar1: None, Apgar5: None, Living: None, Comments: None Previous history: Prior : yes x 1 History of 4th degree laceration: No History of shoulder dystocia: No History of Hypertensive disorders including pre-eclampsia, chronic hypertension or gestational hypertension: No History of gestational diabetes: No Patient's Risk Screening for delivery: Have you had a prior kraft between 20w and 36w6d?: No MEDICAL/PSYCHOSOCIAL HISTORY: History of hemorrhage or bleeding concerns: No Thyroid Disease: No History of chronic hypertension: No History of pre-existing diabetes: No No results found for: ABORHD No weight on file for this encounter. History of abnormal pap: No Prior treatment for cervical dysplasia: none. 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 I don't have enough money to pay my bills: Never Within the past 12 months, have you worried that your food would run out before you had money to buy more: Never In the past 12 months, has lack of reliable transportation kept you from going to medical appointments or work, or from keeping things needed for daily living: Never In the past 12 months, have you had any concerns about having a place to live, or about the condition or quality of your housing: Never Are there any cultural or spiritual needs we should be aware of: No Depression/Anxiety Screening: admits to symptoms of depression. OB Depression and Anxiety Screening- This Encounter (since 01/15/2023) Over the past 2 weeks have you felt down, depressed, or hopeless? Negative Over the past two weeks, have you felt little interest or pleasure in doing things?? Positive - Further Testing Indicated I have been able to laugh and see the funny side of things. As much as I always could I have looked forward with enjoyment to things. As much as I ever did I have blamed myself unnecessarily when things went wrong. No, never I have been anxious or worried for no good reason. Yes, sometimes I have felt scared or panicky for no good reason. No, not at all Things have been getting on top of me. No, most of the time I have coped quite well I have been so unhappy that I have had difficulty sleeping. Not at all I have felt sad or miserable. No, not at all I have been so unhappy that I have been crying. No, never The thought of harming myself has occurred to me. Never [place] Depression Scale Total 3 Feeling nervous, anxious or on edge 1-Several days Not being able to stop or control worrying 1-Several days Anxiety Pre-Screening Total (If >/= 3 additional questions will be reviewed) 2 Genetic Screening: Partner present: No Patient verbalized knowledge of partner family health history: No Do you or your partner have any personal or family history of defects not previously discussed: No Do you have history of a complicated by anomaly, genetic condition, or demise: No ACOG Recommended Screening Screening for early gestational diabetes testing: Criteria for early testing requires elevated BMI plus one other risk factor: No weight on file for this encounter. (risk factor if > than 25 or 23 in Americans) Additional risk factors: First-degree relative with diabetes She does not meet ACOG criteria for early gestational DM scree (more content not included)...[facility]10-03-2023 Miscellaneous Notes* Quick Notes - Ubaldo Pollard RN - 01/16/2023 11:34 AM EDT DISTANCE HEALTH VISIT This Team Access Model visit is a phone encounter. It required patient-provider interaction for themedical decision making as documented below. I have communicated my name and active licensure. The patient's identity and physical location wereverified at the time of this visit. Father of the baby is involved. He is the father of her youngest child. They live together and are engaged to be . Hoping for wedding plans in August. She is transferring care from [place]. We have received her medical records from there and they are sent to Dr. Feng's office for review. She had an initial OB visit on November 21, 2022 with an ultrasound. Has not been seen in their office since then. She has a history of a vaginal followed by a due to suspected HSV outbreak. Patient states she has had outbreaks since that delivery.Pt hasa history of anxiety depression diagnosed a little over 5 years ago and treated by Dr. Troncoso. Shehas been off medication since 2019. She has been considering restarting medication. She denies any depression. She states she has never had counseling but is open to starting. I have recommended Jenna at the counseling center and Anette Brennan at [facility]. Discussed increased risks of depression during and and importance of reporting the development or worsening of symptoms should they occur. Pt denies ever having any suicidal thoughts or tendencies or thoughts of hurting others. Patient has a history of marijuana use. States she has not used it since October. Discussed risks of using marijuana during and advised patient to continue not using. Father of the baby's nephew with muscular dystrophy. Patient statesh she does not believe her partner has had any carrier screening testing. Patient does not believe she has had any genetic carrier screening testing as well. Patient considering aneuploidy screening. Contact information for [facility] velma patel to patient to check on insurance coverage.Ubaldo Pollard RN documented in this encounterCleveland [facility]10-03-[facility] History of Present illness Narrative* Ubaldo Pollard RN - 01/16/2023 10:39 AM EDT INITIAL OB ASSESSMENT OB Provider: Ubaldo Pollard RN HPI: Ivy is a 32 year old White here to establish Obstetrical Care. Patient's last menstrualperiod was 09/08/2022 (approximate). from OB Dating Form. 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 # 3 - Date: None, Sex: None, Weight: None, GA: None, Delivery: None, Apgar1: None, Apgar5: None, Living: None, Comments: None Previous history: Prior : yes x 1 History of 4th degree laceration: No History of shoulder dystocia: No History of Hypertensive disorders including pre-eclampsia, chronic hypertension or gestational hypertension: No History of gestational diabetes: No Patient's Risk Screening for delivery: Have you had a prior kraft between 20w and 36w6d?: No MEDICAL/PSYCHOSOCIAL HISTORY: History of hemorrhage or bleeding concerns: No Thyroid Disease: No History of chronic hypertension: No History of pre-existing diabetes: No No results found for: ABORHD No weight on file for this encounter. History of abnormal pap: No Prior treatment for cervical dysplasia: none. 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 I don't have enough money to pay my bills: Never Within the past 12 months, have you worried that your food would run out before you had money to buy more: Never In the past 12 months, has lack of reliable transportation kept you from going to medical appointments or work, or from keeping things needed for daily living: Never In the past 12 months, have you had any concerns about having a place to live, or about the condition or quality of your housing: Never Are there any cultural or spiritual needs we should be aware of: No Depression/Anxiety Screening: admits to symptoms of depression. OB Depression and Anxiety Screening- This Encounter (since 01/15/2023) Over the past 2 weeks have you felt down, depressed, or hopeless? Negative Over the past two weeks, have you felt little interest or pleasure in doing things? Positive - Further Testing Indicated I have been able to laugh and see the funny side of things. As much as I always could I have looked forward with enjoyment to things. As much as I ever did I have blamed myself unnecessarily when things went wrong. No, never I have been anxious or worried for no good reason. Yes, sometimes I have felt scared or panicky for no good reason. No, not at all Things have been getting on top of me. No, most of the time I have coped quite well I have been so unhappy that I have had difficulty sleeping. Not at all I have felt sad or miserable. No, not at all I have been so unhappy that I have been crying. No, never The thought of harming myself has occurred to me. Never [place] Depression Scale Total 3 Feeling nervous, anxious or on edge 1-Several days Not being able to stop or control worrying 1-Several days Anxiety Pre-Screening Total (If >/= 3 additional questions will be reviewed) 2 Genetic Screening: Partner present: No Patient verbalized knowledge of partner family health history: No Do you or your partner have any personal or family history of defects not previously discussed: No Do you have history of a complicated by anomaly, genetic condition, or demise: No ACOG Recommended Screening Screening for early gestational diabetes testing: Criteria for early testing requires elevated BMI plus one other risk factor: No weight on file for this encounter. (risk factor if > than 25 or 23 in Americans) Additional risk factors: First-degree relative with diabetes She does not meet ACOG criteria for early gestational DM screening. 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 No current facility-administered medications for this visit. Allergies As of Date: 01/16/2023 (No Known Allergies) Fully Assessed 01/16/2023 Does patient have penicillin allergy: No documented in this encounterCleveland [facility]09-18-[facility] Miscellaneous Notes* Telephone Encounter - Ubaldo Pollard RN - 01/01/2023 11:47 AM EDT I called patient to let her know that we have not received her records from [place]. She states herlast visit was December 26. She will call them to have them transferred here documented in this encounterCleveland [facility]08-08-2023 NotePap Smear Specimen AdequacyAugust 2022 10:05amComment.Satisfactory for evaluation. No endocervical component is identified.An endocervical component is not commonly seen in the patient.[facility] INTER[facility]ACED A#[id number] Memorial HospitalComment on above:Satisfactory for evaluation. No endocervical component is identified.An endocervical component is not commonly seen in the patient.Evaluation noteNo assessment information availableWNorwalk Memorial Hospital Work Phone: Evaluation note* Diagnosis with care elsewhere, antepartum History of delivery, currently Previous delivery, unspecified as to episode of care or not applicable History of herpes genitalis Personal history of other infectious and parasitic disease History of depression Personal history of other mental disorder Family history of muscular dystrophy Family history of other neurological diseases documented in this encounter [facility] note* Diagnosis Encounter for anatomic survey- Primary with care elsewhere, antepartum 20 weeks gestation of state, incidental [facility]* Diagnosis History of delivery, currently - Primary Previous delivery, unspecified as to episode of care or not applicable 24 weeks gestation of state, incidental Encounter for supervision of other normal in second trimester documented in this encounter [facility]* Diagnosis Encounter for supervision of other normal in third trimester- Primary 28 weeks gestation of state, incidental Need for vaccination Need for prophylactic vaccination and inoculation against unspecified single disease documented in this encounter [facility] note* Diagnosis Supervision of high risk in third trimester- Primary Unspecified high-risk 36 weeks gestation of state, incidental Uterine size-date discrepancy, third trimester Diet controlled gestational diabetes mellitus (GDM) in third trimester Maternal care due to low transverse uterine scar from previous delivery documented in this encounter [facility]* Diagnosis Uterine size-date discrepancy, third trimester- Primary Diet controlled gestational diabetes mellitus (GDM) in third trimester 36 weeks gestation of state, incidental documented in this [facility] Diagnosis Supervision of high risk in third trimester- Primary Unspecified high-risk Diet controlled gestational diabetes mellitus (GDM) in third trimester 37 weeks gestation of state, incidental Hemorrhoids, unspecified hemorrhoid type documented in this encounter [facility] Diagnosis 38 weeks gestation of - Primary state, incidental Diet controlled gestational diabetes mellitus (GDM) in third trimester Supervision of high risk in third trimester Unspecified high-risk [facility] Diagnosis Onset Date Resolution Status 39 weeks gestation of acute Previous delivery a ffecting , antepartum acute Status post acute Sterilization acute Supervision of other high ri sk pregnancies, third trimester acute Transient hypertension of , acute [facility] Work Phone: Evaluation note* Diagnosis Postoperative pain- Primary Other acute postoperative pain Gestational diabetes mellitus (GDM), delivered Status post section routine follow-up Routine follow-up documented in this encounter [facility] note* Diagnosis Adjustment disorder, unspecified type- Primary documented in this encounter [facility] note* Diagnosis care and examination- Primary Routine follow-up Acute postop pain NEC documented in this encounter [facility] note* Diagnosis Adjustment disorder, unspecified type- Primary documented in this encounter [facility] Summary Purpose Family History No Family History Records FoundNo Family History Records FoundNo Family History Records FoundNo Family History Records FoundNo Family History Records Found Advance Directives No Advanced Directives Records Found Advance Directive Response Recorded Date/ Time Living Will No January 09, 2017 8:06am Power of Wing Coverer No December 8:06am Advance Directive Response Recorded Date/ Time Living Will No June 15, 2023 5:35am Power of Wing Coverer No June 14 5:35am Reason for Referral Specialty Diagnoses / Procedures Referred By Selina bower Referred To Contact General Surgery Diagnoses Hemorrhoids, unspecified hemorrhoid type Procedures CONSULT TO GENERAL SURGERY OFFICE/OUTPATIENT [facility] 60 MINUTES Laly Chew MD [address] [place] [address] Referral ID Status Reason Start Date Expiration Date Visits Requested Visits Authorized [id number] Authorized PCP Requested Referral 05/30/2023 05/29/2024 1 1 Specialty Diagnoses / Procedures Referred By Selina bower Referred To Contact Laly Chew MD [address] [place] [address] Referral ID Status Reason Start Date Expiration Date Visits Re quested Visits Authorized [id number] Closed 1 1 Chief Complaint and Reason for Visit Chief Complaint REPEAT Reason for Visit 39 weeks gestation o f Previous delivery affecting , antepartum Status post Sterilization Supervision of other high risk pregnancies, third trimester Transient hypertension of , Additional Source Comments INFORMATION SOURCE (unrecogn ized section and content) DATE CREATED AUTHOR 10/09/2017 [facility] DATE CREATED AUTHOR AUTHOR'S ORGANIZ ATION 11/02/2019 [facility] DATE CREATED AUTHOR AUTHOR'S ORGANIZ ATION 07/26/2023 [facility] DATE CREATED AUTHOR AUTHOR'S ORGANIZ ATION 08/02/2023 [facility] DATE CREATED AUTHOR AUTHOR'S ORGANIZ ATION 05/11/2024 [facility] Goals (unrecognized section and content) Goals may be documented in a n alternate sectionGoals may be documented in an alternate sectionGoals may be documented in an alternate section Care Teams (unrecognized sec tion and content) Team Status: Active Member Role Status Dates Dr. Halina Troncoso MD Family Provider Active Dr. Halina Troncoso MD Primary Care Provider Active Team Status: Inactive Member Role Status Dates Dr. Halina Troncoso MD Primary Care Prov ider, Attending Provider, Referring Provider Active Team Status: Inactive Member Role Status Dates Dr. Halina Troncoso MD Primary Care Provider Active Dr. Dario Murphy MD Attending Provider Active Team Status: Inactive Member Role Status Dates Dr. Halina Troncoso MD Primary Care Provider Active Dr. Laly Chew MD Admit Provider, Attending Pro vider Active Source Comments (unrecognize d section and content) In the event this informatio n is protected by the Federal Confidentiality of Alcohol and Drug Abuse Patient Records regulations: The Federal rules restrict any use of the information to criminally investigate or prosecute any alcohol or drug abuse patient.[facility] the event this information is protected by the Federal Confidentiality of Alcohol and Drug Abuse Patient Records regulations: The Federal rules restrict any use of the information to criminally investigate or prosecute any alcohol or drug abuse patient.[facility] the event this information is protected by the Federal Confidentiality of Alcohol and Drug Abuse Patient Records regulations: The Federal rules restrict any use of the information to criminally investigate or prosecute any alcohol or drug abuse patient.[facility] the event this information is protected by the Federal Confidentiality of Alcohol and Drug Abuse Patient Records regulations: The Federal rules restrict any use of the information to criminally investigate or prosecute any alcohol or drug abuse patient.[facility] the event this information is protected by the Federal Confidentiality of Alcohol and Drug Abuse Patient Records regulations: The Federal rules restrict any use of the information to criminally investigate or prosecute any alcohol or drug abuse patient.[facility] the event this information is protected by the Federal Confidentiality of Alcohol and Drug Abuse Patient Records regulations: The Federal rules restrict any use of the information to criminally investigate or prosecute any alcohol or drug abuse patient.[facility] the event this information is protected by the Federal Confidentiality of Alcohol and Drug Abuse Patient Records regulations: The Federal rules restrict any use of the information to criminally investigate or prosecute any alcohol or drug abuse patient.[facility] the event this information is protected by the Federal Confidentiality of Alcohol and Drug Abuse Patient Records regulations: The Federal rules restrict any use of the information to criminally investigate or prosecute any alcohol or drug abuse patient.[facility] the event this information is protected by the Federal Confidentiality of Alcohol and Drug Abuse Patient Records regulations: The Federal rules restrict any use of the information to criminally investigate or prosecute any alcohol or drug abuse patient.[facility] the event this information is protected by the Federal Confidentiality of Alcohol and Drug Abuse Patient Records regulations: The Federal rules restrict any use of the information to criminally investigate or prosecute any alcohol or drug abuse patient.[facility] Hospital[facility] the event this information is protected by the Federal Confidentiality of Alcohol and Drug Abuse Patient Records regulations: The Federal rules restrict any use of the information to criminally investigate or prosecute any alcohol or drug abuse patient.[facility] Hospital[facility] the event this information is protected by the Federal Confidentiality of Alcohol and Drug Abuse Patient Records regulations: The Federal rules restrict any use of the information to criminally investigate or prosecute any alcohol or drug abuse patient.[facility] Hospital[facility] the event this information is protected by the Federal Confidentiality of Alcohol and Drug Abuse Patient Records regulations: The Federal rules restrict any use of the information to criminally investigate or prosecute any alcohol or drug abuse patient.[facility] Hospital[facility] the event this information is protected by the Federal Confidentiality of Alcohol and Drug Abuse Patient Records regulations: The Federal rules restrict any use of the information to criminally investigate or prosecute any alcohol or drug abuse patient.[facility] Hospital[facility] the event this information is protected by the Federal Confidentiality of Alcohol and Drug Abuse Patient Records regulations: The Federal rules restrict any use of the information to criminally investigate or prosecute any alcohol or drug abuse patient.[facility] Hospital[facility] the event this information is protected by the Federal Confidentiality of Alcohol and Drug Abuse Patient Records regulations: The Federal rules restrict any use of the information to criminally investigate or prosecute any alcohol or drug abuse patient.[facility] Reason for Visit (unrecogniz ed section and content) Reason Comments transfer of care Reason Comments Care Reason Comments US Specialty Diagnoses / Procedures Referred By Contac t Referred To Contact [facility] Diagnoses with care elsewhere, antepartum Procedures OBSTETRIC ULTRASOUND WHI US PREG UTERUS AFTER 1ST TRIMEST GESTATION Patience Villarreal MD [address] [place] [address] [facility] [address] [place] [address] Referral ID Status Reason Start Date Expiration Date V isits Requested Visits Authorized [id number] Closed Auto-Generate d Referral 01/16/2023 01/16/2024 1 1 Reason Onset Date Comments Care 02/27/2023 Reason Onset Date Comments Care 03/27/2023 Reason Comments Results Reason Onset Date Comments Care 05/24/2023 Specialty Diagnoses / Procedures Referred By Selina bower Referred To Contact [facility] Diagnoses Uterine size-date discrepancy, third trimester Diet controlled gestational diabetes mellitus (GDM) in third trimester Procedures OBSTETRIC ULTRASOUND WHI US PREG UTERUS AFTER 1ST TRIMEST GESTATION Patience Villarreal MD [address] [place] [address] [facility] [address] [place] [address] Referral ID Status Reason Start Date Expiration Date V isits Requested Visits Authorized [id number] Closed Auto-Generate d Referral 05/10/2023 05/09/2024 1 1 Reason Onset Date Comments Care 05/30/2023 Reason Comments Insurance Authorization Reason Comments Insurance Authorization Reason Onset Date Comments Care 06/08/2023 Reason Comments Early Reason Comments Consult Reason Comments Routine Reason Comments Assessment FOR RECORDS PERTAINING TO PATIENTS WHO ARE OR HAVE BEEN ENROLLED IN A CHEMICAL DEPENDENCY/SUBSTANCEABUSE PROGRAM, SOME INFORMATION MAY BE OMITTED. This clinical summary was aggregated from multiple sources. Caution should be exercised in using it in the provision of clinical care. This summary normalizes information from multiple sources, and as a consequence, information in this document may materially change the coding, format and clinical context of patient data. In addition, data may be omitted in some cases. CLINICAL DECISIONS SHOULD BE BASED ON THE PRIMARY CLINICAL RECORDS. [email or web address] provides no warranty or guarantee of the accuracy or completeness of information in this document.
[2024-09-28 06:54] VITALS: BP 138/87; PULSE 68; RESP 18; TEMP 36.6; O2SAT 100
== END 2024-09-28 06:57 | disposition home or self-care (01) ==
PROVIDERS: Emergency Provider Emergency Medicine; PCP Family Medicine; Visit Provider Emergency Medicine
DX: S01.01XA Laceration without foreign body of scalp, initial encounter (principal); W22.09XA Striking against other stationary object, initial encounter; Y99.0 Civilian activity done for income or pay; F17.290 Nicotine dependence, other tobacco product, uncomplicated
CPT/HCPCS: 12001; 99283